=== PATIENT | male | born 1955 | race Caucasian/White ===

== ENCOUNTER → 2022-03-30 | Outpatient (CLI) | payer MEDICARE ==
--- NOTE | 2022-03-30 08:52 | MR ---
EXAMINATION TYPE: MR brain wo con DATE OF EXAM: 03/30/2022 COMPARISON: NONE HISTORY: Migraine. TECHNIQUE: Multiplanar, multisequence imaging of the brain and brainstem is performed without IV cont rast. FINDINGS: Exam is suboptimal and there is susceptibility artifact over the peripheral left parietal lobe superiorly. Diffusion weighted images demonstrate no evidence of a recent infarct or other diffusion abnormality. There is mild to moderate ventricular and sulcal prominence. Few scattered tiny areas of T2 hyperinte nsity are seen throughout the white matter bilaterally. Less than 5 scattered lesions are present. No obvious suspicious intraparenchymal blood product on the T2 star weighted images. Midline structures demonstrate normal morphology. The craniocervical junction appears within normal limits. Normal vascular flow voids are present. The visualized sinuses are clear and the globes are i ntact. IMPRESSION: Suboptimal study. [id number] diffuse cerebral atrophy and mild to minimal nonspecif ic white matter changes may be on basis of altered vascular mechanics related to product of migraine headaches and/or product of chronic small vessel ischemic change.
== END | disposition home or self-care (01) ==
LOC: RADMRIMAIN 06:38
PROVIDERS: ATTEND Psychiatry & Neurology Neurology
DX: M47.812 Spondylosis without myelopathy or radiculopathy, cervical region (principal); M47.816 Spondylosis without myelopathy or radiculopathy, lumbar region; G43.909 Migraine, unspecified, not intractable, without status migrainosus
CPT/HCPCS: 70551

== ENCOUNTER 2022-06-16 14:37 | Emergency (ER) | payer MEDICARE ==
[2022-06-16 14:48] LABS: Glucose,Whole Blood 108 mg/dL (70-110)
[2022-06-16 16:37] LABS: Basophils % (A) 0 %; Eosinophils # (A) 0.1 k/uL (0-0.7); Eosinophils % (A) 2 %; HCT 39.5 % (39.0-53.0); HGB 13.2 gm/dL (13.0-17.5); Lymphocytes # (A) 1.4 k/uL (1.0-4.8); Lymphocytes % (A) 19 %; MCH 31.3 pg (25.0-35.0); MCHC 33.5 g/dL (31.0-37.0); MCV 93.7 fL (80.0-100.0); Mean Platelet Volume 8.1; Monocytes # (A) 0.5 k/uL (0-1.0); Monocytes % (A) 7 %; Neutrophils # (A) 5.2 k/uL (1.3-7.7); Neutrophils % (A) 70 %; Platelet Count 136 k/uL (150-450); RBC 4.22 m/uL (4.30-5.90); RDW 13.1 % (11.5-15.5); WBC 7.4 k/uL (3.8-10.6)
[2022-06-16 16:46] LABS: Albumin 4.2 g/dL (3.5-5.0); Calcium 8.7 mg/dL (8.4-10.2); Magnesium 2.1 mg/dL (1.6-2.3); Potassium 5.2 mmol/L (3.5-5.1); Total Bilirubin 0.5 mg/dL (0.2-1.3)
[2022-06-16 16:49] VITALS: RESP 18
--- NOTE | 2022-06-16 16:59 | XR ---
EXAMINATION TYPE: XR chest 2V DATE OF EXAM: 06/16/2022 4:53 PM COMPARISON: None TECHNIQUE: XR chest 2V Frontal and lateral views of the chest. CLINICAL INDICATION:Male, 66 years old with history of Presyncope; FINDINGS: Lungs/Pleura: There is no evidence of pleural effusion, focal consolidation, or pneumothorax. Pulmonary vascularity: Unremarkable. Heart/mediastinum: Cardiomediastinal silhouette is unremarkable. Musculoskeletal: No acute osseous pathology. IMPRESSION: 1. Vague opacity projects over the right pulmonary hilum suggested, consider further evaluation with CT chest. 2. No focal consolidation, pneumothorax or pleural effusion.
[2022-06-16] MEDS ORDERED: RX INFO: IV CONTRAST WAS GIVEN 1 EACH MISC MISCELLANE PRN (17:34)
--- NOTE | 2022-06-16 17:53 | ED ---
General Adult HPI - General Chief complaint: Syncope Stated complaint: Syncope Time Seen by Provider: 06/16/22 15:09 Source: patient, EMS Mode of arrival: EMS Limitations: no limitations - History of Present Illness Initial comments: This is a 66-year-old male who presented to the emergency department via EMS from a nursing facility. Was reported that the patient had a episode of possible presyncope but stated "things not fuzzy when I was talking to a nurse" and this was stated to the patient's half-way nurse. Once the patient arrived in the emergency department here and on my evaluation, the patient stated that he denied of any pain or complaints and stated that his hand got "fuzzy" for a few seconds. The patient did have carpal tunnel surgery performed on the right hand yesterday but stated that he denied of any acute pain. The patient denied any shortness of breath, chest pain, lightheadedness or weakness on my evaluation. The patient was resting in bed comfortably after I had to wake him up from sleep. - Related Data Home Medications Medication Instructions Recorded Confirmed Albuterol Sulfate [Ventolin HFA] 2 puff INHALATION RT-Q6H 06/16/22 06/16/22 Aspirin EC [Ecotrin Low Dose] 81 mg PO DAILY@0906/16/22 06/16/22 Atorvastatin Calcium [Lipitor] 40 mg PO HS@2100 06/16/22 06/16/22 Cholecalciferol [Vitamin D3 (25 25 mcg PO DAILY@89906/16/22 06/16/22 Mcg = 1000 Iu)] Diclofenac Sodium Gel [Voltaren 2 gm TOPICAL BID PRN 06/16/22 06/16/22 Gel] Famotidine [Pepcid] 20 mg PO DAILY@59906/16/22 06/16/22 Furosemide [Lasix] 40 mg PO DAILY@59906/16/22 06/16/22 Gabapentin 600 mg PO TID@0600,1400,2200 06/16/22 06/16/22 HYDROcodone/APAP 5-325MG [[place] 1 tab PO Q4HR PRN 06/16/22 06/16/22 5-325] Insulin Aspart [NovoLOG Flexpen] 10 units SQ TID@0800,1200,1700 06/16/22 06/16/22 Insulin Glargine,Hum.rec.anlog 25 unit SQ HS@2100 02/02/23 02/02/23 [Basaglar Sofiepen U-100] Lactulose 10 gm PO DAILY PRN 06/16/22 06/16/22 Metoprolol Succinate (ER) [Toprol 12.5 mg PO DAILY@89906/16/22 06/16/22 Xl] Multivitamins, Thera [Multivitamin 1 tab PO DAILY@89906/16/22 06/16/22 (formulary)] Rhinocort Aqua Suspension 32mcg/Act 1 spray EA NOSTRIL HS@209906/16/22 06/16/22 Semaglutide [Ozempic] 0.5 mg SQ TU@89906/16/22 06/16/22 Tamsulosin HCl [Flomax] 0.4 mg PO HS@209906/16/22 06/16/22 glipiZIDE [Glucotrol] 5 mg PO DAILY@89906/16/22 06/16/22 lisinopriL [Zestril] 40 mg PO DAILY@89906/16/22 06/16/22 Allergies Allergy/AdvReac Type Severity Reaction Status Date / Time No Known Allergies Allergy Verified 06/16/22 17:41 Review of Systems ROS Statement: Those systems with pertinent positive or pertinent negative responses have been documented in the HPI. ROS Other: All systems not noted in ROS Statement are negative. Past Medical History Past Medical History: Diabetes Mellitus, Hypertension Additional Past Medical History / Comment(s): stent placement History of Any Multi-Drug Resistant Organisms: None Reported Additional Past Surgical History / Comment(s): carpel tunnel surgery 06/15/22, lap band around 2017 Past Psychological History: No Psychological Hx Reported Smoking Status: Former smoker Past Alcohol Use History: None Reported Past Drug Use History: None Reported General Exam Limitations: no limitations General appearance: alert, in no apparent distress, obese Head exam: Present: atraumatic, normocephalic, normal inspection Eye exam: Present: normal appearance, PERRL Pupils: Present: normal accommodation ENT exam: Present: normal exam, normal oropharynx, mucous membranes moist Neck exam: Present: normal inspection, full ROM Respiratory exam: Present: normal lung sounds bilaterally Cardiovascular Exam: Present: regular rate, normal rhythm, normal heart sounds GI/Abdominal exam: Present: soft, normal bowel sounds Extremities exam: Present: normal inspection, full ROM, other (Right hand was ba ndaged from previous carpal tunnel surgery yesterday. There was no pain on palpation.) Back exam: Present: normal inspection, full ROM Neurological exam: Present: alert, oriented X3, CN II-XII intact Psychiatric exam: Present: normal affect, normal mood Skin exam: Present: warm, dry Course Vital Signs 06/16/22 06/16/22 06/16/22 14:40 16:46 18:30 Temperature 97.7 F Pulse Rate 68 65 67 Respiratory 20 18 18 Rate Blood Pressure 111/82 114/70 114/59 O2 Sat by Pulse 99 97 97 Oximetry EKG Findings - EKG Comments: EKG Findings:: An EKG was obtained and was interpreted by myself showing a rate of 63, CA interval of 164, QRS duration of 89 and QTC of 388. This EKG showed a normal sinus rhythm with no ST segment elevation or depression noted. Medical Decision Making - Medical Decision Making Was pt. sent in by a medical professional or institution ([facility], IMPLEMENTATION DIRECTOR, urgent care, hospital, or half-way...) When possible be specific @ -Yes, nursing facility Did you speak to anyone other than the patient for history (EMS, parent, family, police, friend...)? What history was obtained from this source @ -No Did you review nursing and triage notes (agree or disagree)? Why? @ -I reviewed and agree with nursing and triage notes Were old charts reviewed (outside hosp., previous admission, EMS record, old EKG, old radiological studies, urgent care reports/EKG's, half-way records)? Report findings @ -No old charts were reviewed Differential Diagnosis (chest pain, altered mental status, abdominal pain women, abdominal pain men, vaginal bleeding, weakness, fever, dyspnea, syncope, headache, dizziness, GI bleed, back pain, seizure, CVA, palpatations, mental health)? @ -Syncope, dehydration, vasovagal syncope EKG interpreted by me (3pts min.). @ -As above X-rays interpreted by me (1pt min.). @ -Chest x-ray was obtained and was interpreted by myself showing a vague opacity that projects over the right pulmonary hilum and the radiologist did consider recommending a CT chest for further evaluation. CT interpreted by me (1pt min.). @ -Chest CT was obtained and was interpreted by myself showing a right perihilar infiltrate without did not require any direct intervention at this time. As recommended by the radiologist to have a 6 week follow-up chest x-ray to prove resolution. U/S interpreted by me (1pt. min.). @ -None done What testing was considered but not performed or refused? (CT, X-rays, U/S, labs)? Why? @ -None What meds were considered but not given or refused? Why? @ -None Did you discuss the management of the patient with other professionals (grazyna todd i.e. , PA, IMPLEMENTATION DIRECTOR, lab, RT, psych nurse, social sciences chair, digital marketing assistant, teacher, tax compliance officer, continuous pillowcase cutter)? Give summary @ -No Was smoking cessation discussed for >3mins.? @ -No Was critical care preformed (if so, how long)? @ -No Were there social determinants of health that impacted care today? How? (Homelessness, low income, unemployed, alcoholism, drug addiction, transportation, low edu. Level, literacy, decrease access to med. care, half-way, rehab)? @ -No Was there de-escalation of care discussed even if they declined (Discuss DNR or withdrawal of care, Hospice)? DNR status @ -No What co-morbidities impacted this encounter? (DM, HTN, Smoking, COPD, CAD, Cancer, CVA, ARF, Chemo, Hep., AIDS, mental health diagnosis, sleep apnea, morbid obesity)? @ -Hypertension, diabetes, CHF Was patient admitted / discharged? Hospital course, mention meds given and route, prescriptions, significant lab abnormalities, going to OR and other pertinent info. @ -The patient was seen and evaluated in emergency department. Physical exam, the patient was resting in bed without any acute distress. Vital signs remained stable throughout his hospital stay. On my evaluation, the patient denied of any acute complaints and only stated that he had some "fuzziness" momentarily in his right hand where his surgery was. The patient stated that he is not having any current symptoms and was resting in bed comfortably. The patient denied ever falling and denied ever almost falling. Workup for syncopal was obtained and was all within normal limits. The patient continued to remain stable and was stable to be discharged back to his nursing facility. The patient was told this plan and was agreeable. The patient was discharged back to his nursing facility in stable condition. Undiagnosed new problem with uncertain prognosis? @ -No Drug Therapy requiring intensive monitoring for toxicity (Heparin, Nitro, Insulin, Cardizem)? @ -No Were any procedures done? @ -No Diagnosis/symptom? @ -Presyncope, NOS Acute, or Chronic, or Acute on Chronic? @ -Acute Uncomplicated (without systemic symptoms) or Complicated (systemic symptoms)? @ -Uncomplicated Side effects of treatment? @ -No Exacerbation, Progression, or Severe Exacerbation? @ -No Poses a threat to life or bodily function? How? (Chest pain, [place], NH, pneumonia, PE, COPD, DKA, ARF, appy, cholecystitis, CVA, Diverticulitis, Homicidal, Suicidal, threat to staff... and all critical care pts) @ -No - Lab Data Result diagrams: 06/16/22 16:09 06/16/22 16:09 Lab Results 06/16/22 06/16/22 06/16/22 Range/Units 14:47 16:09 16:09 WBC 7.4 (3.8-10.6) k/uL RBC 4.22 L (4.30-5.90) m/uL Hgb 13.2 (13.0-17.5) gm/dL Hct 39.5 (39.0-53.0) % MCV 93.7 (80.0-100.0) fL MCH 31.3 (25.0-35.0) pg MCHC 33.5 (31.0-37.0) g/dL RDW 13.1 (11.5-15.5) % Plt Count 136 L (150-450) k/uL MPV 8.1 Neutrophils % 70 % Lymphocytes % 19 % Monocytes % 7 % Eosinophils % 2 % Basophils % 0 % Neutrophils # 5.2 (1.3-7.7) k/uL Lymphocytes # 1.4 (1.0-4.8) k/uL Monocytes # 0.5 (0-1.0) k/uL Eosinophils # 0.1 (0-0.7) k/uL Basophils # 0.0 (0-0.2) k/uL Sodium 140 (137-145) mmol/L Potassium 5.2 H (3.5-5.1) mmol/L Chloride 106 (98-107) mmol/L Carbon Dioxide 24 (22-30) mmol/L Anion Gap 10 mmol/L BUN 27 H (9-20) mg/dL Creatinine 1.27 H (0.66-1.25) mg/dL Est GFR (CKD-EPI)AfAm 67 (>60 ml/min/1.73 sqM) Est GFR (CKD-EPI)NonAf 58 (>60 ml/min/1.73 sqM) Glucose 98 (74-99) mg/dL POC Glucose (mg/dL) 108 (70-110) mg/dL POC Glu Auto Damage Appraiser ID [place], [place] Calcium 8.7 (8.4-10.2) mg/dL Magnesium 2.1 (1.6-2.3) mg/dL Total Bilirubin 0.5 (0.2-1.3) mg/dL AST 24 (17-59) U/L ALT 20 (4-49) U/L Alkaline Phosphatase 62 (38-126) U/L Troponin I (0.000-0.034) ng/mL Total Protein 7.0 (6.3-8.2) g/dL Albumin 4.2 (3.5-5.0) g/dL 06/16/22 Range/Units 16:09 WBC (3.8-10.6) k/uL RBC (4.30-5.90) m/uL Hgb (13.0-17.5) gm/dL Hct (39.0-53.0) % MCV (80.0-100.0) fL MCH (25.0-35.0) pg MCHC (31.0-37.0) g/dL RDW (11.5-15.5) % Plt Count (150-450) k/uL MPV Neutrophils % % Lymphocytes % % Monocytes % % Eosinophils % % Basophils % % Neutrophils # (1.3-7.7) k/uL Lymphocytes # (1.0-4.8) k/uL Monocytes # (0-1.0) k/uL Eosinophils # (0-0.7) k/uL Basophils # (0-0.2) k/uL Sodium (137-145) mmol/L Potassium (3.5-5.1) mmol/L Chloride (98-107) mmol/L Carbon Dioxide (22-30) mmol/L Anion Gap mmol/L BUN (9-20) mg/dL Creatinine (0.66-1.25) mg/dL Est GFR (CKD-EPI)AfAm (>60 ml/min/1.73 sqM) Est GFR (CKD-EPI)NonAf (>60 ml/min/1.73 sqM) Glucose (74-99) mg/dL POC Glucose (mg/dL) (70-110) mg/dL POC Glu Auto Damage Appraiser ID Calcium (8.4-10.2) mg/dL Magnesium (1.6-2.3) mg/dL Total Bilirubin (0.2-1.3) mg/dL AST (17-59) U/L ALT (4-49) U/L Alkaline Phosphatase (38-126) U/L Troponin I <0.012 (0.000-0.034) ng/mL Total Protein (6.3-8.2) g/dL Albumin (3.5-5.0) g/dL Disposition Clinical Impression: Pre-syncope Disposition: HOME SELF-CARE Condition: Stable Is patient prescribed a controlled substance at d/c from ED?: No Referrals: Jeffrey Frank MD [Primary Care Provider] - 1-2 days Time of Disposition: 19:30
--- NOTE | 2022-06-16 19:38 | CT ---
EXAMINATION TYPE: CT chest w con DATE OF EXAM: 06/16/2022 COMPARISON: None HISTORY: syncope CT DLP: 1082.6 mGycm. Automated Exposure Control for Dose Reduction was Utilized. TECHNIQUE: CT scan of the thorax is performed following with IV Contrast, patient injected with 80ml mL of Isovue 300. FINDINGS: AIRWAYS/LUNGS/PLEURAL SPACES: There is patient motion artifact, but there is also right perihilar RML and RLL ill-defined opacity, consistent with developing or resolving pneumonia. This likely accounts for the radiographic abnormality. Otherwise, the lungs are grossly clear, there is no concerning par enchymal mass or nodule. There is no pleural effusion or pneumothorax seen. The tracheobronchial tree is patent. MEDIASTINUM: There are no greater than 1 cm hilar or mediastinal lymph nodes. No supraclavicular or a xillary enlarged lymph nodes. There are prominent coronary calcifications and there are aortic and mitral valve plane calcification s. No pericardial effusion. Thyroid and esophagus are unremarkable. OTHER: No additional significant abnormality is seen. IMPRESSION: Right perihilar infiltrate, would recommend six-week follow-up PA and lateral chest radio graphs to prove resolution.
[2022-06-16 19:42] VITALS: BP 118/56; PULSE 69; TEMP 97.6
== END 2022-06-16 20:19 | disposition home or self-care (01) ==
LOC: EC 14:37
DX: R55 Syncope and collapse (principal); I10 Essential (primary) hypertension; E11.9 Type 2 diabetes mellitus without complications; Z79.82 Long term (current) use of aspirin; Z79.4 Long term (current) use of insulin; Z79.899 Other long term (current) drug therapy; Z87.891 Personal history of nicotine dependence
CPT/HCPCS: 36415; 93005; 80053; 83735; 84484; 85025; 71046; 71260; 99285; Q9967

== ENCOUNTER 2022-07-17 21:45 | Observation (INO) | payer MEDICARE, OTHER ==
[2022-07-17 23:10] LABS: Basophils % (A) 0 %; Eosinophils # (A) 0.2 k/uL (0-0.7); Eosinophils % (A) 2 %; HGB 11.5 gm/dL (13.0-17.5); Lymphocytes # (A) 0.4 k/uL (1.0-4.8); Lymphocytes % (A) 4 %; MCH 31.7 pg (25.0-35.0); MCHC 33.9 g/dL (31.0-37.0); MCV 93.4 fL (80.0-100.0); Monocytes # (A) 0.5 k/uL (0-1.0); Monocytes % (A) 5 %; Neutrophils # (A) 7.9 k/uL (1.3-7.7); Neutrophils % (A) 87 %; Platelet Count 119 k/uL (150-450); RBC 3.64 m/uL (4.30-5.90); RDW 13.8 % (11.5-15.5)
--- NOTE | 2022-07-17 23:21 | ED ---
General Adult HPI - General Chief complaint: Shortness of Breath Stated complaint: Fever Time Seen by Provider: 07/17/22 22:21 Source: patient, EMS Mode of arrival: EMS Limitations: no limitations - History of Present Illness Initial comments: This patient is a 66-year-old man transferred here from the custodial to have evaluation of cough and bilateral rib aching. The patient started with cough and second day now. He states that there pains along the costal margin bilaterally when he coughs. When he is at rest there is really no pain. There is mild dyspnea when he has coughing spell. Onset/Timin -: days(s) Quality: aching Consistency: intermittent Improves with: none Worsens with: other (Cough) Associated Symptoms: cough Treatments Prior to Arrival: none - Related Data Home Medications Medication Instructions Recorded Confirmed Albuterol Sulfate [Ventolin HFA] 2 puff INHALATION RT-Q6H 06/16/22 07/18/22 Aspirin EC [Ecotrin Low Dose] 81 mg PO DAILY@0900 06/16/22 07/18/22 Atorvastatin Calcium [Lipitor] 40 mg PO HS@2100 06/16/22 07/18/22 Cholecalciferol [Vitamin D3 (25 25 mcg PO DAILY@0906/16/22 07/18/22 Mcg = 1000 Iu)] Diclofenac Sodium Gel [Voltaren 2 gm TOPICAL BID PRN 06/16/22 07/18/22 Gel] Famotidine [Pepcid] 20 mg PO DAILY@0600 06/16/22 07/18/22 Furosemide [Lasix] 40 mg PO DAILY@0600 06/16/22 07/18/22 Gabapentin 600 mg PO TID@0600,1400,2200 06/16/22 07/18/22 Insulin Aspart [NovoLOG Flexpen] 10 units SQ TID@0800,1200,1700 06/16/22 07/18/22 Insulin Glargine,Hum.rec.anlog 25 unit SQ HS@209906/16/22 07/18/22 [Basaglar Kwikpen U-100] Lactulose 10 gm PO DAILY PRN 06/16/22 07/18/22 Metoprolol Succinate (ER) [Toprol 12.5 mg PO DAILY@0900 06/16/22 07/18/22 XL] Multivitamins, Thera [Multivitamin 1 tab PO DAILY@0900 06/16/22 07/18/22 (formulary)] Rhinocort Aqua Suspension 32mcg/Act 1 spray EA NOSTRIL HS@209906/16/22 07/18/22 Semaglutide [Ozempic] 0.5 mg SQ TU@0900 06/16/22 07/18/22 Tamsulosin HCl [Flomax] 0.4 mg PO HS@209906/16/22 07/18/22 glipiZIDE [Glucotrol] 5 mg PO DAILY@0900 06/16/22 07/18/22 Tracie-Tussin 10 ml PO Q4H PRN 07/18/22 07/18/22 methylPREDNISolone Dose Pack See Taper PO DIRECTED 07/18/22 07/18/22 [Medrol Dose Pack] Previous Rx's Medication Instructions Recorded Acetaminophen Tab [Tylenol] 650 mg PO Q6HR PRN tab 07/19/22 Benzocaine/Menthol Lozeng [Cepacol 1 each MUCOUS MEM Q4HR PRN lozenge 07/19/22 lozenge] HYDROcodone/APAP 5-325MG [Cameron 1 tab PO Q4HR PRN #6 tab 07/19/22 5-325] INSULIN ASPART (NovoLOG) [NovoLOG 0 unit SQ ACHS each 07/19/22 (formulary)] amLODIPine [Norvasc] 10 mg PO DAILY tab 07/19/22 cefUROXime axetiL [Ceftin] 500 mg PO BID 5 Days #10 tab 07/19/22 guaiFENesin SYRUP 100MG/5ML 200 mg PO TID PRN ml 07/19/22 [Robitussin] Allergies Allergy/AdvReac Type Severity Reaction Status Date / Time No Known Allergies Allergy Verified 07/18/22 07:25 Review of Systems ROS Statement: Those systems with pertinent positive or pertinent negative responses have been documented in the HPI. ROS Other: All systems not noted in ROS Statement are negative. Constitutional: Reports: fever Respiratory: Reports: as per HPI, cough, dyspnea. Denies: hemoptysis Cardiovascular: Reports: as per HPI, chest pain. Denies: palpitations, orthopnea, edema, syncope Gastrointestinal: Denies: abdominal pain, vomiting, diarrhea Genitourinary: Denies: dysuria, hematuria Musculoskeletal: Denies: back pain Skin: Denies: rash Neurological: Denies: headache, weakness Past Medical History Past Medical History: Diabetes Mellitus, Hypertension Additional Past Medical History / Comment(s): stent placement History of Any Multi-Drug Resistant Organisms: None Reported Additional Past Surgical History / Comment(s): carpel tunnel surgery 06/15/22, lap band around 2018 Past Psychological History: No Psychological Hx Reported Smoking Status: Former smoker Past Alcohol Use History: None Reported Past Drug Use History: None Reported - Past Family History Father Family Medical History: Myocardial Infarction (PR) General Exam Limitations: no limitations General appearance: alert, in no apparent distress Head exam: Present: atraumatic, normocephalic Eye exam: Present: normal appearance. Absent: scleral icterus, conjunctival injection Neck exam: Present: normal inspection Respiratory exam: Present: wheezes. Absent: respiratory distress, rales, rhonchi, stridor, accessory muscle use Cardiovascular Exam: Present: regular rate, normal rhythm, normal heart sounds. Absent: systolic murmur, diastolic murmur, rubs, gallop GI/Abdominal exam: Present: soft. Absent: distended, tenderness, guarding, rebound, rigid, mass Extremities exam: Present: normal inspection, normal capillary refill. Absent: pedal edema, calf tenderness Back exam: Present: normal inspection. Absent: CVA tenderness (R), CVA tenderness (L) Neurological exam: Present: alert Skin exam: Present: warm, dry, intact, normal color. Absent: rash Course Vital Signs 07/17/22 07/17/22 07/18/22 21:50 21:59 00:55 Temperature 101.1 F H 100.7 F H Pulse Rate 92 72 Respiratory 18 18 18 Rate Blood Pressure 127/56 86/44 O2 Sat by Pulse 96 94 L Oximetry 07/18/22 07/18/22 07/18/22 01:23 02:00 03:00 Temperature Pulse Rate 75 63 67 Respiratory 18 16 16 Rate Blood Pressure 98/47 116/57 94/47 O2 Sat by Pulse 97 98 97 Oximetry 07/18/22 07/18/22 07/18/22 04:00 05:00 06:00 Temperature Pulse Rate 63 64 66 Respiratory 16 16 16 Rate Blood Pressure 95/51 117/59 121/67 O2 Sat by Pulse 97 96 98 Oximetry 07/18/22 07:27 Temperature 97.3 F L Pulse Rate 88 Respiratory 22 Rate Blood Pressure 105/56 O2 Sat by Pulse 96 Oximetry EKG Findings - EKG Results: EKG: interpreted by ERMD, sinus rhythm (Rate 86 bpm), normal axis, normal ST/T - [place]ocks, [place], Hypertrophy, ST Abn: QRS axis and voltage: low voltage (<0.5 MV total QRS and <1.0 MV in each precordial lead) Medical Decision Making - Medical Decision Making Patient had chest x-ray which I interpreted as not showing pneumothorax, or acute infiltrate. Was pt. sent in by a medical professional or institution (, PA, [facility], urgent care, hospital, or custodial...) When possible be specific @ -[No] Did you speak to anyone other than the patient for history (EMS, parent, family, police, friend...)? What history was obtained from this source @ -[No] Did you review nursing and triage notes (agree or disagree)? Why? @ -[I reviewed and agree with nursing and triage notes] Were old charts reviewed (outside hosp., previous admission, EMS record, old EKG, old radiological studies, urgent care reports/EKG's, custodial records)? Report findings @ -[No old charts were reviewed] Differential Diagnosis (chest pain, altered mental status, abdominal pain women, abdominal pain men, vaginal bleeding, weakness, fever, dyspnea, syncope, headache, dizziness, GI bleed, back pain, seizure, CVA, palpatations, mental health, musculoskeletal)? @ -[Differential Fever: Pneumonia, viral URI, endocarditis, myocarditis, pericarditis, otitis, sinusitis, peritonsillar Abscess, retropharyngeal Abscess, epiglottitis, peritonitis, appendicitis, Sarah cystitis, diverticulitis, hepatitis, colitis, UTI, PID, TOA, pyelonephritis, prostatitis, epididymitis, meningitis, encephalitis, pulmonary embolism, CVA, thyroid storm, pancreatitis, adrenal crisis, cavernous sinus thrombosis, this is not meant to be an all-inclusive list. EKG interpreted by me (3pts min.). @ -[As above] X-rays interpreted by me (1pt min.). @ -[As above CT interpreted by me (1pt min.). @ -[None done] U/S interpreted by me (1pt. min.). @ -[None done] What testing was considered but not performed or refused? (CT, X-rays, U/S, labs)? Why? @ -[None] What meds were considered but not given or refused? Why? @ -[None] Did you discuss the management of the patient with other professionals (professionals i.e. Dr., PA, [facility], lab, RT, psych nurse, social worker psychiatric, despatch clerk, teacher, property disposal officer, bottle caser)? Give summary @ -[Admitting physician Was smoking cessation discussed for >3mins.? @ -[No] Was critical care preformed (if so, how long)? @ -[No] Were there social determinants of health that impacted care today? How? (Homelessness, low income, unemployed, alcoholism, drug addiction, transportation, low edu. Level, literacy, decrease access to med. care, prison, rehab)? @ -[No] Was there de-escalation of care discussed even if they declined (Discuss DNR or withdrawal of care, Hospice)? DNR status @ -[No] What co-morbidities impacted this encounter? (DM, HTN, Smoking, COPD, CAD, Cancer, CVA, ARF, Chemo, Hep., AIDS, mental health diagnosis, sleep apnea, morbid obesity)? @ -[None] Was patient admitted / discharged? Hospital course, mention meds given and route, prescriptions, significant lab abnormalities, going to OR and other pertinent info. @ -[Admitted Undiagnosed new problem with uncertain prognosis? @ -[No] Drug Therapy requiring intensive monitoring for toxicity (Heparin, Nitro, Insulin, Cardizem)? @ -[No] Were any procedures done? @ -[No] Diagnosis/symptom? @ -[1. Acute urinary tract infection 2. Fever 3. Dyspnea, suspect mild COPD exacerbation Acute, or Chronic, or Acute on Chronic? @ -[Acute Uncomplicated (without systemic symptoms) or Complicated (systemic symptoms)? @ -[1 complicated Side effects of treatment? @ -[No] Exacerbation, Progression, or Severe Exacerbation? @ -[No] Poses a threat to life or bodily function? How? (Chest pain, [place], PR, pneumonia, PE, COPD, DKA, ARF, appy, cholecystitis, CVA, Diverticulitis, Homicidal, Suicidal, threat to staff... and all critical care pts) @ -[Untreated infection may become life-threatening. - Lab Data Result diagrams: 07/17/22 22:57 07/18/22 10:38 Lab Results 07/17/22 07/17/22 07/17/22 Range/Units 22:53 22:57 22:57 WBC 9.0 (3.8-10.6) k/uL RBC 3.64 L (4.30-5.90) m/uL Hgb 11.5 L (13.0-17.5) gm/dL Hct 34.0 L (39.0-53.0) % MCV 93.4 (80.0-100.0) fL MCH 31.7 (25.0-35.0) pg MCHC 33.9 (31.0-37.0) g/dL RDW 13.8 (11.5-15.5) % Plt Count 119 L (150-450) k/uL MPV 9.0 Neutrophils % 87 % Lymphocytes % 4 % Monocytes % 5 % Eosinophils % 2 % Basophils % 0 % Neutrophils # 7.9 H (1.3-7.7) k/uL Lymphocytes # 0.4 L (1.0-4.8) k/uL Monocytes # 0.5 (0-1.0) k/uL Eosinophils # 0.2 (0-0.7) k/uL Basophils # 0.0 (0-0.2) k/uL PT 10.6 (9.0-12.0) sec INR 1.0 (<1.2) APTT 27.0 (22.0-30.0) sec Sodium (137-145) mmol/L Potassium (3.5-5.1) mmol/L Chloride (98-107) mmol/L Carbon Dioxide (22-30) mmol/L Anion Gap mmol/L BUN (9-20) mg/dL Creatinine (0.66-1.25) mg/dL Est GFR (CKD-EPI)AfAm (>60 ml/min/1.73 sqM) Est GFR (CKD-EPI)NonAf (>60 ml/min/1.73 sqM) Glucose (74-99) mg/dL Plasma Lactic Acid Marcus (0.7-2.0) mmol/L Calcium (8.4-10.2) mg/dL Total Bilirubin (0.2-1.3) mg/dL AST (17-59) U/L ALT (4-49) U/L Alkaline Phosphatase (38-126) U/L Troponin I (0.000-0.034) ng/mL Total Protein (6.3-8.2) g/dL Albumin (3.5-5.0) g/dL Urine Color Urine Appearance (Clear) Urine pH (5.0-8.0) Ur Specific [place] (1.001-1.035) Urine Protein (Negative) Urine Glucose (UA) (Negative) Urine Ketones (Negative) Urine Blood (Negative) Urine Nitrite (Negative) Urine Bilirubin (Negative) Urine Urobilinogen (<2.0) mg/dL Ur Leukocyte Esterase (Negative) Urine RBC (0-5) /hpf Urine WBC (0-5) /hpf Urine WBC Clumps (None) /hpf Ur Squamous Epith Cells (0-4) /hpf Urine Bacteria (None) /hpf Urine Mucus (None) /hpf Influenza Type A (PCR) Not Detected (Not Detectd) Influenza Type B (PCR) Not Detected (Not Detectd) RSV (PCR) Not Detected (Not Detectd) SARS-CoV-2 (PCR) Not Detected (Not Detectd) 07/17/22 07/17/22 07/17/22 Range/Units 22:57 22:57 23:33 WBC (3.8-10.6) k/uL RBC (4.30-5.90) m/uL Hgb (13.0-17.5) gm/dL Hct (39.0-53.0) % MCV (80.0-100.0) fL MCH (25.0-35.0) pg MCHC (31.0-37.0) g/dL RDW (11.5-15.5) % Plt Count (150-450) k/uL MPV Neutrophils % % Lymphocytes % % Monocytes % % Eosinophils % % Basophils % % Neutrophils # (1.3-7.7) k/uL Lymphocytes # (1.0-4.8) k/uL Monocytes # (0-1.0) k/uL Eosinophils # (0-0.7) k/uL Basophils # (0-0.2) k/uL PT (9.0-12.0) sec INR (<1.2) APTT (22.0-30.0) sec Sodium 135 L (137-145) mmol/L Potassium 5.2 H (3.5-5.1) mmol/L Chloride 104 (98-107) mmol/L Carbon Dioxide 23 (22-30) mmol/L Anion Gap 8 mmol/L BUN 33 H (9-20) mg/dL Creatinine 1.46 H (0.66-1.25) mg/dL Est GFR (CKD-EPI)AfAm 57 (>60 ml/min/1.73 sqM) Est GFR (CKD-EPI)NonAf 49 (>60 ml/min/1.73 sqM) Glucose 151 H (74-99) mg/dL Plasma Lactic Acid Marcus 1.2 (0.7-2.0) mmol/L Calcium 8.2 L (8.4-10.2) mg/dL Total Bilirubin 0.5 (0.2-1.3) mg/dL AST 26 (17-59) U/L ALT 21 (4-49) U/L Alkaline Phosphatase 55 (38-126) U/L Troponin I 0.012 (0.000-0.034) ng/mL Total Protein 6.3 (6.3-8.2) g/dL Albumin 3.6 (3.5-5.0) g/dL Urine Color Urine Appearance (Clear) Urine pH (5.0-8.0) Ur Specific [place] (1.001-1.035) Urine Protein (Negative) Urine Glucose (UA) (Negative) Urine Ketones (Negative) Urine Blood (Negative) Urine Nitrite (Negative) Urine Bilirubin (Negative) Urine Urobilinogen (<2.0) mg/dL Ur Leukocyte Esterase (Negative) Urine RBC (0-5) /hpf Urine WBC (0-5) /hpf Urine WBC Clumps (None) /hpf Ur Squamous Epith Cells (0-4) /hpf Urine Bacteria (None) /hpf Urine Mucus (None) /hpf Influenza Type A (PCR) (Not Detectd) Influenza Type B (PCR) (Not Detectd) RSV (PCR) (Not Detectd) SARS-CoV-2 (PCR) (Not Detectd) 07/18/22 Range/Units 04:00 WBC (3.8-10.6) k/uL RBC (4.30-5.90) m/uL Hgb (13.0-17.5) gm/dL Hct (39.0-53.0) % MCV (80.0-100.0) fL MCH (25.0-35.0) pg MCHC (31.0-37.0) g/dL RDW (11.5-15.5) % Plt Count (150-450) k/uL MPV Neutrophils % % Lymphocytes % % Monocytes % % Eosinophils % % Basophils % % Neutrophils # (1.3-7.7) k/uL Lymphocytes # (1.0-4.8) k/uL Monocytes # (0-1.0) k/uL Eosinophils # (0-0.7) k/uL Basophils # (0-0.2) k/uL PT (9.0-12.0) sec INR (<1.2) APTT (22.0-30.0) sec Sodium (137-145) mmol/L Potassium (3.5-5.1) mmol/L Chloride (98-107) mmol/L Carbon Dioxide (22-30) mmol/L Anion Gap mmol/L BUN (9-20) mg/dL Creatinine (0.66-1.25) mg/dL Est GFR (CKD-EPI)AfAm (>60 ml/min/1.73 sqM) Est GFR (CKD-EPI)NonAf (>60 ml/min/1.73 sqM) Glucose (74-99) mg/dL Plasma Lactic Acid Marcus (0.7-2.0) mmol/L Calcium (8.4-10.2) mg/dL Total Bilirubin (0.2-1.3) mg/dL AST (17-59) U/L ALT (4-49) U/L Alkaline Phosphatase (38-126) U/L Troponin I (0.000-0.034) ng/mL Total Protein (6.3-8.2) g/dL Albumin (3.5-5.0) g/dL Urine Color Yellow Urine Appearance Turbid (Clear) Urine pH 6.0 (5.0-8.0) Ur Specific [place] 1.016 (1.001-1.035) Urine Protein 2+ H (Negative) Urine Glucose (UA) Negative (Negative) Urine Ketones Negative (Negative) Urine Blood Small H (Negative) Urine Nitrite Negative (Negative) Urine Bilirubin Negative (Negative) Urine Urobilinogen <2.0 (<2.0) mg/dL Ur Leukocyte Esterase Large H (Negative) Urine RBC 3 (0-5) /hpf Urine WBC >182 H (0-5) /hpf Urine WBC Clumps Many H (None) /hpf Ur Squamous Epith Cells 1 (0-4) /hpf Urine Bacteria Occasional H (None) /hpf Urine Mucus Occasional H (None) /hpf Influenza Type A (PCR) (Not Detectd) Influenza Type B (PCR) (Not Detectd) RSV (PCR) (Not Detectd) SARS-CoV-2 (PCR) (Not Detectd) Disposition Clinical Impression: UTI (urinary tract infection), Dyspnea Disposition: ADMITTED IP TO THIS HOSP Condition: Fair Is patient prescribed a controlled substance at d/c from ED?: No
[2022-07-17 23:22] LABS: Prothrombin Time 10.6 sec (9.0-12.0)
--- NOTE | 2022-07-17 23:28 | XR ---
EXAMINATION TYPE: XR chest 2V DATE OF EXAM: 07/17/2022 COMPARISON: 06/19/2022 HISTORY: Short of breath TECHNIQUE: FINDINGS: Heart is normal. Lungs are clear of consolidation. There are no hilar masses. There are arnav st leads. No heart failure. Lateral view is limited by positioning and underexposure. IMPRESSION: No active cardiopulmonary disease. No change
[2022-07-18 00:29] LABS: Albumin 3.6 g/dL (3.5-5.0); Calcium 8.2 mg/dL (8.4-10.2); Potassium 5.2 mmol/L (3.5-5.1); Total Bilirubin 0.5 mg/dL (0.2-1.3); Total Protein 6.3 g/dL (6.3-8.2)
[2022-07-18] MEDS ORDERED: SODIUM CHLORIDE 0.9% 500 ML 500 ML IV STA (00:58)
[2022-07-18] MEDS ORDERED: SODIUM CHLORIDE 0.9% 1,000 ML IV ONE (00:58)
[2022-07-18] MEDS ORDERED: SODIUM CHLORIDE 0.9% 1,000 ML IV STA (00:58)
[2022-07-18] MEDS ORDERED: ACETAMINOPHEN TAB 325 MG TAB PO STA (01:08)
[2022-07-18 05:49] LABS: Appearance,Urine Turbid (Clear); Bacteria,Urine Occasional /hpf; Bilirubin,Urine Negative (Negative); Blood,Urine Small (Negative); Color,Urine Yellow; Glucose,Urine (UA) Negative (Negative); Ketones,Urine Negative (Negative); Leukocyte Esterase,Urine Large (Negative); Mucus,Urine Occasional /hpf; Nitrite,Urine Negative (Negative); Protein,Urine 2+ (Negative); RBC,Urine 3 /hpf (0-5); Specific Gravity,Urine 1.016 (1.001-1.035); Squamous Epithelial Cell,Urine 1 /hpf (0-4); Urobilinogen,Urine <2.0 mg/dL (<2.0); WBC,Urine >182 /hpf (0-5)
[2022-07-18] MEDS ORDERED: ACETAMINOPHEN TAB 325 MG TAB PO PRN (06:27)
[2022-07-18] MEDS ORDERED: NALOXONE 0.4 MG/ML 1 ML VIAL IV PRN (06:27)
[2022-07-18] MEDS: SODIUM CHLORIDE 0.9% 1,000 ML IV SCH ×2 (06:35→09:09)
[2022-07-18] MEDS ORDERED: FAMOTIDINE 20 MG TAB PO SCH (09:00)
[2022-07-18] MEDS ORDERED: LACTULOSE 20 GM/30 ML CUP PO PRN (10:16)
[2022-07-18] MEDS ORDERED: HYDROcodone/APAP 5-325MG 1 EACH TAB PO PRN (10:16)
[2022-07-18] MEDS ORDERED: DICLOFENAC SODIUM GEL 100 GM TUBE TOPICAL PRN (10:16)
[2022-07-18] MEDS ORDERED: DEXTROSE 50% SYRINGE 50 ML IVP PRN ×2 (10:17)
[2022-07-18] MEDS ORDERED: guaiFENesin SYRUP 100MG/5ML 200 MG/10 ML CUP PO PRN (10:18)
[2022-07-18 11:12] LABS: African American GFR (CKD) 78 (>60 ml/min/1.73 sqM); Anion Gap 8 mmol/L; Blood Urea Nitrogen 31 mg/dL (9-20); Calcium 7.7 mg/dL (8.4-10.2); Carbon Dioxide 22 mmol/L (22-30); Chloride 107 mmol/L (98-107); Glucose 167 mg/dL (74-99); Non-African American GFR(CKD) 67 (>60 ml/min/1.73 sqM); Sodium 137 mmol/L (137-145)
[2022-07-18 11:15] LABS: Glucose,Whole Blood 191 mg/dL (70-110)
[2022-07-18] MEDS: ALBUTEROL HFA INHALER INHALATION SCH ×3 (11:33→23:28)
[2022-07-18] MEDS: INSULIN ASPART (NovoLOG) 100 UNIT/ML VIAL SQ SCH ×3 (13:34→21:26)
[2022-07-18] MEDS: GABAPENTIN 100 MG CAP PO SCH ×2 (13:34→21:25)
--- NOTE | 2022-07-18 16:27 | P.HPIM ---
History of Present Illness H&P Date: 07/18/22 This is a 66 year old male with medical history of COPD, diabetes, hypertension, hyperlipidemia, coronary artery disease with prior PCI, muscle weakness, former smoker. Patient has been at [facility] for rehabiliation for the last 9 months. He was sent to the hospital for fever, increased weakness and cough for the last 2 days. Patient was started on azithromycin and prednisone oral without improvemen t. Viral panel was negative for influenza, RSV, and covid. Patient does have some wheezing noted on exam. Has right sided chest pain which is pleuritic and worse with coughing and deep breathing. Denies shortness of breath, denies nausea, vomiting or diarrhea. He has fever of 101.1. on admission. No white count on admission. Sodium of 135, BUN 33 and creatinine 1.46. Urinalysis showing small blood, large leukocyte esterase, >182 WBC. He has been admitted and started on IV ceftriaxone and oral steroids for acute COPD exacerbation. Procalcitonin level will be checked. Lisinopril has been placed on hold secondary to elevated potassium and creatinine. REVIEW OF SYSTEMS: CONSTITUTIONAL: Reports fever. HEENT: No recent visual problems or hearing problems. Denied any sore throat. CARDIOVASCULAR: No chest pain, orthopnea, PND, no palpitations, no syncope. PULMONARY: No shortness of breath, no hemoptysis. reports cough. GASTROINTESTINAL: No diarrhea, no nausea, no vomiting, no abdominal pain. NEUROLOGICAL: No headaches, no weakness, no numbness. HEMATOLOGICAL: Denies any bleeding or petechiae. GENITOURINARY: Denies any burning micturition, frequency, or urgency. Reports urinary incontinence MUSCULOSKELETAL/RHEUMATOLOGICAL: Denies any joint pain, swelling, or any muscle pain. ENDOCRINE: Denies any polyuria or polydipsia. The rest of the 14-point review of systems is negative. PHYSICAL EXAMINATION: GENERAL: The patient is alert and oriented x3, not in any acute distress. Well developed, well nourished. Currently on 4L nasal cannula. HEENT: Pupils are round and equally reacting to light. EOMI. No scleral icterus. No conjunctival pallor. Normocephalic, atraumatic. No pharyngeal erythema. No thyromegaly. CARDIOVASCULAR: S1 and S2 present. No murmurs, rubs, or gallops. PULMONARY: Faint expiratory wheezing. ABDOMEN: Soft, nontender, distended, normoactive bowel sounds. No palpable organomegaly. MUSCULOSKELETAL: No joint swelling or deformity. EXTREMITIES: No cyanosis, clubbing, or pedal edema. NEUROLOGICAL: Gross neurological examination did not reveal any focal deficits. Generalized weakness. SKIN: No rashes. Assessment and Plan Assessment Fever with cough Acute hypoxic respiratory failure secondary to acute acute COPD exacerbation and acute tracheobronchitis Abnormal urine rule out acute UTI urine culture is pending Diabetes Mellitus type 2 Coronary artery disease with prior PCI Hypertension Hyperlipidemia Former smoker Muscle weakness and medical debility Obesity GI prophylaxis DVT prophylaxis No Code Plan Continue empiric antibiotics with IV ceftriaxone Oral steroids Continue oxygen support wean as tolerated Check procalcitonin level Check bladder scan PT/OT consultation Supportive care Repeat labs in AM Anticipated hospital stay less than 2 nights. The impression and plan of care has been dictated by Venessa Palomo Nurse Practitioner as directed. Dr. Suhas MD I have performed a history and physical examination and medical decision making of this patient, discussed the same with the dictator, and agree with the dictators assessment and plan as written, documented as a scribe. Based on total visit time, I have performed more than 50% of this visit. Past Medical History Past Medical History: Coronary Artery Disease (CAD), COPD, Diabetes Mellitus, Hyperlipidemia, Hypertension, Osteoarthritis (OA) Additional Past Medical History / Comment(s): stent placement,muscle weakness, difficulty walking, right hip arthritis History of Any Multi-Drug Resistant Organisms: None Reported Additional Past Surgical History / Comment(s): carpel tunnel surgery 06/15/22, lap band around 2018 Past Anesthesia/Blood Transfusion Reactions: No Reported Reaction Smoking Status: Former smoker - Past Family History Father Family Medical History: Myocardial Infarction ([place]) Medications and Allergies Home Medications Medication Instructions Recorded Confirmed Type Albuterol Sulfate [Ventolin HFA] 2 puff INHALATION RT-Q6H 06/16/22 07/18/22 History Aspirin EC [Ecotrin Low Dose] 81 mg PO DAILY@0900 06/16/22 07/18/22 History Atorvastatin Calcium [Lipitor] 40 mg PO HS@2100 06/16/22 07/18/22 History Cholecalciferol [Vitamin D3 (25 25 mcg PO DAILY@0900 06/16/22 07/18/22 History Mcg = 1000 Iu)] Diclofenac Sodium Gel [Voltaren 2 gm TOPICAL BID PRN 06/16/22 07/18/22 History Gel] Famotidine [Pepcid] 20 mg PO DAILY@59906/16/22 07/18/22 History Furosemide [Lasix] 40 mg PO DAILY@0600 06/16/22 07/18/22 History Gabapentin 600 mg PO TID@0600,1400,2200 06/16/22 07/18/22 History HYDROcodone/APAP 5-325MG [[place] 1 tab PO Q4HR PRN 06/16/22 07/18/22 History 5-325] Insulin Aspart [NovoLOG Flexpen] 10 units SQ TID@0800,1200,1700 06/16/22 07/18/22 History Insulin Glargine,Hum.rec.anlog 25 unit SQ HS@209906/16/22 07/18/22 History [Basaglar Kwikpen U-100] Lactulose 10 gm PO DAILY PRN 06/16/22 07/18/22 History Metoprolol Succinate (ER) [Toprol 12.5 mg PO DAILY@89906/16/22 07/18/22 History Xl] Multivitamins, Thera [Multivitamin 1 tab PO DAILY@89906/16/22 07/18/22 History (formulary)] Rhinocort Aqua Suspension 32mcg/Act 1 spray EA NOSTRIL HS@209906/16/22 07/18/22 History Semaglutide [Ozempic] 0.5 mg SQ TU@89906/16/22 07/18/22 History Tamsulosin HCl [Flomax] 0.4 mg PO HS@209906/16/22 07/18/22 History glipiZIDE [Glucotrol] 5 mg PO DAILY@89906/16/22 07/18/22 History lisinopriL [Zestril] 40 mg PO DAILY@89906/16/22 07/18/22 History Azithromycin [Zithromax Z Pack] See Taper PO DIRECTED 07/18/22 07/18/22 History Tracie-Tussin 10 ml PO Q4H PRN 07/18/22 07/18/22 History methylPREDNISolone Dose Pack See Taper PO DIRECTED 07/18/22 07/18/22 History [Medrol Dose Pack] Allergies Allergy/AdvReac Type Severity Reaction Status Date / Time No Known Allergies Allergy Verified 07/18/22 07:25 Physical Exam Vitals: Vital Signs Temp Pulse Pulse Resp BP BP Pulse Ox 07/18/22 12:59 98.3 F 68 16 122/56 100 07/18/22 08:05 98.5 F 18 153/64 97 07/18/22 07:27 97.3 F L 88 22 105/56 96 07/18/22 06:00 66 16 121/67 98 07/18/22 05:00 64 16 117/59 96 07/18/22 04:00 63 16 95/51 97 07/18/22 03:00 67 16 94/47 97 07/18/22 02:00 63 16 116/57 98 07/18/22 01:23 75 18 98/47 97 07/18/22 00:55 100.7 F H 72 18 86/44 94 L 07/17/22 21:59 18 07/17/22 21:50 101.1 F H 92 18 127/56 96 Intake and Output 07/18/22 07/18/22 07/18/22 06:59 14:59 22:59 Intake Total 720 Output Total 600 Balance 120 Intake: Oral 720 Output: Urine 600 Other: Voiding Method Diaper Incontinent External Catheter Weight 139.253 kg 139.253 kg Results CBC & Chem 7: 07/17/22 22:57 07/18/22 10:38 Labs: Abnormal Lab Results - Last 24 Hours (Table) 07/17/22 07/17/22 07/18/22 Range/Units 22:57 23:33 04:00 RBC 3.64 L (4.30-5.90) m/uL Hgb 11.5 L (13.0-17.5) gm/dL Hct 34.0 L (39.0-53.0) % Plt Count 119 L (150-450) k/uL Neutrophils # 7.9 H (1.3-7.7) k/uL Lymphocytes # 0.4 L (1.0-4.8) k/uL Sodium 135 L (137-145) mmol/L Potassium 5.2 H (3.5-5.1) mmol/L BUN 33 H (9-20) mg/dL Creatinine 1.46 H (0.66-1.25) mg/dL Glucose 151 H (74-99) mg/dL POC Glucose (mg/dL) (70-110) mg/dL Hemoglobin A1c (0.0-6.0) % Calcium 8.2 L (8.4-10.2) mg/dL Urine Protein 2+ H (Negative) Urine Blood Small H (Negative) Ur Leukocyte Esterase Large H (Negative) Urine WBC >182 H (0-5) /hpf Urine WBC Clumps Many H (None) /hpf Urine Bacteria Occasional H (None) /hpf Urine Mucus Occasional H (None) /hpf 07/18/22 07/18/22 07/18/22 Range/Units 10:38 10:38 11:15 RBC (4.30-5.90) m/uL Hgb (13.0-17.5) gm/dL Hct (39.0-53.0) % Plt Count (150-450) k/uL Neutrophils # (1.3-7.7) k/uL Lymphocytes # (1.0-4.8) k/uL Sodium (137-145) mmol/L Potassium (3.5-5.1) mmol/L BUN 31 H (9-20) mg/dL Creatinine (0.66-1.25) mg/dL Glucose 167 H (74-99) mg/dL POC Glucose (mg/dL) 191 H (70-110) mg/dL Hemoglobin A1c 6.9 H (0.0-6.0) % Calcium 7.7 L (8.4-10.2) mg/dL Urine Protein (Negative) Urine Blood (Negative) Ur Leukocyte Esterase (Negative) Urine WBC (0-5) /hpf Urine WBC Clumps (None) /hpf Urine Bacteria (None) /hpf Urine Mucus (None) /hpf Thrombosis Risk Factor Assmnt - Choose All That Apply Any of the Below Risk Factors Present?: Yes Each Factor Represents 1 point: Abnormal pulmonary function (COPD), Obesity (BMI >25) Other Risk Factors: Yes Each Risk Factor Represents 2 Points: Age 61-74 years Other congenital or acquired thrombophilia - If yes, enter type in comment: No Thrombosis Risk Factor Assessment Total Risk Factor Score: 4 Thrombosis Risk Factor Assessment Level: Moderate Risk Assessment and Plan Time with Patient: Less than 30
[2022-07-18] MEDS: predniSONE 20 MG TAB PO SCH (16:43)
[2022-07-18 17:02] LABS: Glucose,Whole Blood 201 mg/dL (70-110)
[2022-07-18] MEDS ORDERED: ATORVASTATIN 40 MG TAB PO SCH (21:00)
[2022-07-18] MEDS ORDERED: TAMSULOSIN 0.4 MG CAP.ER.24H PO SCH (21:00)
[2022-07-18] MEDS ORDERED: INSULIN DETEMIR (LEVEMIR) 100 UNIT/ML SYR SQ SCH (21:00)
[2022-07-18 21:15] LABS: Glucose,Whole Blood 307 mg/dL (70-110)
[2022-07-18] MEDS: HEPARIN SODIUM,PORCINE/PF 5,000 UNIT/0.5 ML SYRINGE SQ SCH (21:26)
[2022-07-19] MEDS: BENZOCAINE/MENTHOL LOZENG 1 EACH LOZENGE MUCOUS MEM PRN ×2 (04:25→09:49)
[2022-07-19] MEDS ORDERED: FAMOTIDINE 20 MG TAB PO SCH (06:00)
[2022-07-19] MEDS: GABAPENTIN 100 MG CAP PO SCH ×2 (06:18→15:13)
[2022-07-19] MEDS: SODIUM CHLORIDE 0.9% 1,000 ML IV SCH (06:20)
[2022-07-19 07:21] LABS: Glucose,Whole Blood 203 mg/dL (70-110)
[2022-07-19] MEDS: ALBUTEROL HFA INHALER INHALATION SCH ×3 (08:33→18:16)
[2022-07-19] MEDS: INSULIN ASPART (NovoLOG) 100 UNIT/ML VIAL SQ SCH ×6 (08:54→18:15)
[2022-07-19] MEDS ORDERED: CHOLECALCIFEROL 25 MCG (1000 IU) TABLET PO SCH (09:00)
[2022-07-19] MEDS ORDERED: glipiZIDE 5 MG TAB PO SCH (09:00)
[2022-07-19] MEDS ORDERED: METOPROLOL SUCCINATE (ER) 25 MG TAB.ER.24H PO SCH (09:00)
[2022-07-19] MEDS ORDERED: MULTIVITAMINS, THERA 1 EACH TAB PO SCH (09:00)
[2022-07-19] MEDS ORDERED: ASPIRIN 81 MG PO SCH (09:00)
[2022-07-19] MEDS: HEPARIN SODIUM,PORCINE/PF 5,000 UNIT/0.5 ML SYRINGE SQ SCH (09:48)
[2022-07-19] MEDS: predniSONE 20 MG TAB PO SCH (09:48)
[2022-07-19] MEDS ORDERED: amLODIPine 10 MG TAB PO SCH (10:00)
[2022-07-19 11:19] LABS: Glucose,Whole Blood 175 mg/dL (70-110)
[2022-07-19 13:02] VITALS: BP 162/99; PULSE 74; RESP 16; TEMP 97.8
--- NOTE | 2022-07-19 15:38 | P.DS ---
Providers Date of admission: 07/18/22 06:29 Attending physician: Samir Garvey Primary care physician: Jeffrey Frank Hospital Course: Final Diagnosis Fever with cough Acute hypoxic respiratory failure secondary to acute acute COPD exacerbation and acute tracheobronchitis viral etiology Abnormal urine unlikely acute UTI. Follow up culture. Diabetes Mellitus type 2 hgb A1C 6.9. Coronary artery disease with prior PCI Hypertension Hyperlipidemia Former smoker Muscle weakness and medical debility Obesity No Code Discharge Disposition Patient is evaluated today sitting up in chair. He is stable for discharge back to [facility] today. He has been weaned to room air. Patient will continue on oral steroid taper as previous. Albuterol inhaler as needed. Continue oral antibiotics with ceftin 500 mg BID for 5 more days. Recommend to discontinue lisinopril secondary to elevated creatinine and potassium. Patient has been started on amlodipine for blood pressure control. Recommend repeat labs in 2 to 3 days. Hospital Course This is a 66 year old male with medical history of COPD, diabetes, hypertension, hyperlipidemia, coronary artery disease with prior PCI, muscle weakness, former smoker. Patient has been at [facility] for rehabiliation for the last 9 months. He was sent to the hospital for fever, increased weakness and cough for the last 2 days. Patient was started on azithromycin and prednisone oral without improvement. Viral panel was negative for influenza, RSV, and covid. Patient does have some wheezing noted on exam. Has right sided chest pain which is pleuritic and worse with coughing and deep breathing. Denies shortness of breath, denies nausea, vomiting or diarrhea. He has fever of 101.1. on admission. No white count on admission. Sodium of 135, BUN 33 and creatinine 1.46. Urinalysis showing small blood, large leukocyte esterase, >182 WBC. He has been admitted and started on IV ceftriaxone and oral steroids for acute COPD exacerbation. Procalcitonin level is negative at 0.21 this is likely a viral bronchitis. Patient has improved clinically on antibiotics and will finish short course. Lisinopril has been placed on hold secondary to elevated potassium and creatinine. Patient has been started on amlodipine for elevated blood pressure. Creatinine has improved to 1.13. 07/19/2022 Patient is evaluated today sitting up in chair. No acute events overnight. He has been weaned to room air. No chest pain, no shortness of breath. Continues with cough. Supportive care in place. Procalcitonin level is negative for bacterial infection. His lungs are clear. S1 S2 auscultated abdomen is soft and nontender. Focal neurological exam is negative. Patient has generalized weakness and will DC back to [facility] to continue physical therapy. Creatinine has improved. Patient has been afebrile in the last 24 hours. Please see medication reconciliation for a list of current medication. Thank you for allowing us to participate in the care of this patient. The impression and plan of care has been dictated by Venessa Palomo, Nurse Practitioner as directed. Dr. Suhas MD I have performed a history and physical examination and medical decision making of this patient, discussed the same with the dictator, and agree with the dictators assessment and plan as written, documented as a scribe. Based on total visit time, I have performed more than 50% of this visit. Patient Condition at Discharge: Fair Plan - Discharge Summary Discharge Rx Participant: Yes New Discharge Prescriptions: New Benzocaine/Menthol Lozeng [Cepacol lozenge] 1 each MUCOUS MEM Q4HR PRN lozenge PRN Reason: Cough INSULIN ASPART (NovoLOG) [NovoLOG (formulary)] 0 unit SQ ACHS each guaiFENesin SYRUP 100MG/5ML [Robitussin] 200 mg PO TID PRN ml PRN Reason: Cough Acetaminophen Tab [Tylenol] 650 mg PO Q6HR PRN tab PRN Reason: Mild Pain Or Fever > 100.5 amLODIPine [Norvasc] 10 mg PO DAILY tab Continue Diclofenac Sodium Gel [Voltaren Gel] 2 gm TOPICAL BID PRN PRN Reason: HIP PAIN Insulin Aspart [NovoLOG Flexpen] 10 units SQ TID@0800,1200,1700 Metoprolol Succinate (ER) [Toprol XL] 12.5 mg PO DAILY@0900 Cholecalciferol [Vitamin D3 (25 Mcg = 1000 Iu)] 25 mcg PO DAILY@0900 Semaglutide [Ozempic] 0.5 mg SQ TU@0900 Tamsulosin HCl [Flomax] 0.4 mg PO HS@2100 Insulin Glargine,Hum.rec.anlog [Basaglar Kwikpen U-100] 25 unit SQ HS@2100 methylPREDNISolone Dose Pack [Medrol Dose Pack] See Taper PO DIRECTED Tracie-Tussin 10 ml PO Q4H PRN PRN Reason: Cough HYDROcodone/APAP 5-325MG [[place] 5-325] 1 tab PO Q4HR PRN #6 tab PRN Reason: Pain Lactulose 10 gm PO DAILY PRN PRN Reason: Constipation Gabapentin 600 mg PO TID@0600,1400,2200 Albuterol Sulfate [Ventolin HFA] 2 puff INHALATION RT-Q6H Multivitamins, Thera [Multivitamin (formulary)] 1 tab PO DAILY@0900 Rhinocort Aqua Suspension 32mcg/Act 1 spray EA NOSTRIL HS@2099 glipiZIDE [Glucotrol] 5 mg PO DAILY@0900 Furosemide [Lasix] 40 mg PO DAILY@0600 Atorvastatin Calcium [Lipitor] 40 mg PO HS@2099 Famotidine [Pepcid] 20 mg PO DAILY@0600 Aspirin EC [Ecotrin Low Dose] 81 mg PO DAILY@0900 Discontinued lisinopriL [Zestril] 40 mg PO DAILY@0900 Azithromycin [Zithromax Z Pack] See Taper PO DIRECTED Discharge Medication List Albuterol Sulfate [Ventolin HFA] 2 puff INHALATION RT-Q6H 06/16/22 [History] Aspirin EC [Ecotrin Low Dose] 81 mg PO DAILY@0900 06/16/22 [History] Atorvastatin Calcium [Lipitor] 40 mg PO HS@209906/16/22 [History] Cholecalciferol [Vitamin D3 (25 Mcg = 1000 Iu)] 25 mcg PO DAILY@0900 06/16/22 [History] Diclofenac Sodium Gel [Voltaren Gel] 2 gm TOPICAL BID PRN 06/16/22 [History] Famotidine [Pepcid] 20 mg PO DAILY@0600 06/16/22 [History] Furosemide [Lasix] 40 mg PO DAILY@0600 06/16/22 [History] Gabapentin 600 mg PO TID@0600,1400,2200 06/16/22 [History] Insulin Aspart [NovoLOG Flexpen] 10 units SQ TID@0800,1200,1700 06/16/22 [History] Insulin Glargine,Hum.rec.anlog [Basaglar Kwikpen U-100] 25 unit SQ HS@209906/16/22 [History] Lactulose 10 gm PO DAILY PRN 06/16/22 [History] Metoprolol Succinate (ER) [Toprol XL] 12.5 mg PO DAILY@89906/16/22 [History] Multivitamins, Thera [Multivitamin (formulary)] 1 tab PO DAILY@89906/16/22 [History] Rhinocort Aqua Suspension 32mcg/Act 1 spray EA NOSTRIL HS@209906/16/22 [History] Semaglutide [Ozempic] 0.5 mg SQ TU@89906/16/22 [History] Tamsulosin HCl [Flomax] 0.4 mg PO HS@209906/16/22 [History] glipiZIDE [Glucotrol] 5 mg PO DAILY@89906/16/22 [History] Tracie-Tussin 10 ml PO Q4H PRN 07/18/22 [History] methylPREDNISolone Dose Pack [Medrol Dose Pack] See Taper PO DIRECTED 07/18/22 [History] Acetaminophen Tab [Tylenol] 650 mg PO Q6HR PRN tab 07/19/22 [Rx] Benzocaine/Menthol Lozeng [Cepacol lozenge] 1 each MUCOUS MEM Q4HR PRN lozenge 07/19/22 [Rx] HYDROcodone/APAP 5-325MG [[place] 5-325] 1 tab PO Q4HR PRN #6 tab 07/19/22 [Rx] INSULIN ASPART (NovoLOG) [NovoLOG (formulary)] 0 unit SQ ACHS each 07/19/22 [Rx] amLODIPine [Norvasc] 10 mg PO DAILY tab 07/19/22 [Rx] guaiFENesin SYRUP 100MG/5ML [Robitussin] 200 mg PO TID PRN ml 07/19/22 [Rx] Follow up Appointment(s)/Referral(s): Jeffrey Frank MD [Primary Care Provider] - 1-2 days Ambulatory/Diagnostic Orders: Basic Metabolic Panel [LAB.AMB] Time Frame: 2 Days, Location: None Selected Discharge Disposition: TRANSFER TO SNF/ECF
[2022-07-19 17:14] LABS: Glucose,Whole Blood 183 mg/dL (70-110)
--- NOTE | 2022-07-21 20:15 | CDI ---
Documentation Clarification Form Date: 07/21/2022 8:00:12 PM From: Terese Saavedra Phone: Admit Date: 07/18/2022 6:29:00 AM Patient Name: Zoltan Peace Visit Number: [id number] Discharge Date: 07/19/2022 7:11:00 PM ATTENTION: The Clinical Documentation Specialists (CDI) and [facility] Coding Staff appreciate your assistance in clarifying documentation. Please respond to the clarification below the line at the bottom and electronically sign. The CDI & [facility] Coding staff will review the response and follow-up if needed. Please note: Queries are made part of the Legal Health Record. If you have any questions, please contact the author of this message via ITS. Dr. Kristofer Dai Your patient has diagnostic/radiology results: Enterococcus faecium with multi drug resistance. Please clarify if there is an additional diagnosis and/or clinical significance related to this result. History/Risk Factors: 66yo M, AHRF, AECOPD, acute tracheobronchitis, DMII, CAD w stent, HTN, HLD, Hx smoker, DNR, muscle weakness, medicaldebility, Obesity Clinical indicators: Vital Signs: Temp Pulse Resp BP Pulse Ox 98.3 F 68 16 122/56 100 WBC: 9.0 Urine Culture: Enterococcus faecium Treatment: Abnormalurinerule outacuteUTIurine culture ispending Is there an additional diagnosis and/or clinical significance related to the above diagnostic/radiology result? [ x ] UTI due to Enterococcus faecium with multi drug resistance [ ] Result is not clinically significant (no additional diagnosis) [ ] Other, please specify [ ] Unable to determine (Template Last Reviewed: June 2020) MTDD
== END 2022-07-19 19:11 ==
LOC: EC 21:45 → 5NMEDONC 07-18 06:29 → INTOOBSV 07-18 06:29 → 5NMEDONC 07-18 07:01 → UNDODISIN 07-19 19:11
PROVIDERS: ADMIT Hospitalist; ATTEND Hospitalist
DX: R50.9 Fever, unspecified (principal); J20.8 Acute bronchitis due to other specified organisms; J44.0 Chronic obstructive pulmonary disease with (acute) lower respiratory infection; J44.1 Chronic obstructive pulmonary disease with (acute) exacerbation; J96.01 Acute respiratory failure with hypoxia; E11.9 Type 2 diabetes mellitus without complications; I10 Essential (primary) hypertension; E78.5 Hyperlipidemia, unspecified; E66.9 Obesity, unspecified; I25.10 Atherosclerotic heart disease of native coronary artery without angina pectoris; Z79.82 Long term (current) use of aspirin; Z79.899 Other long term (current) drug therapy; Z79.4 Long term (current) use of insulin; Z82.49 Family history of ischemic heart disease and other diseases of the circulatory system; Z98.84 Bariatric surgery status; Z20.822 Contact with and (suspected) exposure to COVID-19; Z95.5 Presence of coronary angioplasty implant and graft; Z87.891 Personal history of nicotine dependence; Z68.39 Body mass index [BMI] 39.0-39.9, adult
CPT/HCPCS: 96361; 96372 ×2; 96365 ×2; 99285; 36415 ×2; 94640 ×4; 93005; 97530; 97162; 97166; 80053; 80048; 83605; 84484; 85025; 85610; 85730; 81001; 87040; 87086; 87077; 87186; 83036; 84145; 87636; 71046; G0378 ×2; J0696 ×2; J7512 ×2; J1644 ×2

== ENCOUNTER 2023-02-09 08:27 | Inpatient (IN) | payer MEDICARE, OTHER ==
[2023-02-09 08:54] LABS: Basophils % (A) 0 %; Eosinophils # (A) 0.2 k/uL (0-0.7); Eosinophils % (A) 3 %; HCT 36.9 % (39.0-53.0); HGB 12.7 gm/dL (13.0-17.5); Lymphocytes # (A) 1.8 k/uL (1.0-4.8); Lymphocytes % (A) 23 %; MCH 32.7 pg (25.0-35.0); MCHC 34.3 g/dL (31.0-37.0); MCV 95.3 fL (80.0-100.0); Mean Platelet Volume 8.2; Monocytes # (A) 0.5 k/uL (0-1.0); Monocytes % (A) 6 %; Neutrophils # (A) 5.3 k/uL (1.3-7.7); Neutrophils % (A) 66 %; Platelet Count 129 k/uL (150-450); RBC 3.87 m/uL (4.30-5.90); RDW 13.6 % (11.5-15.5)
[2023-02-09 09:06] LABS: ALT 19 U/L (4-49); African American GFR (CKD) >90 (>60 ml/min/1.73 sqM); Anion Gap 9 mmol/L; Blood Urea Nitrogen 24 mg/dL (9-20); Calcium 8.7 mg/dL (8.4-10.2); Carbon Dioxide 24 mmol/L (22-30); Chloride 103 mmol/L (98-107); Glucose 149 mg/dL (74-99); Non-African American GFR(CKD) 82 (>60 ml/min/1.73 sqM); Sodium 136 mmol/L (137-145); Total Bilirubin 0.6 mg/dL (0.2-1.3)
[2023-02-09 09:17] LABS: Prothrombin Time 10.6 sec (9.0-12.0)
--- NOTE | 2023-02-09 09:18 | XR ---
EXAMINATION TYPE: XR chest 2V DATE OF EXAM: 02/09/2023 COMPARISON: 07/17/2022 HISTORY: 67-year-old male dysrhythmia TECHNIQUE: AP and lateral views FINDINGS: Heart upper limits of normal in size. Mild interstitial prominence in part be technical due to the la rge body habitus and magnification. No anita consolidation or pleural effusion seen. IMPRESSION: Limited by large body habitus. Borderline heart size. Interstitial prominence may be technical. No fo acacia infiltrate is seen.
[2023-02-09 09:29] LABS: Magnesium 1.8 mg/dL (1.6-2.3); Potassium 5.1 mmol/L (3.5-5.1)
[2023-02-09 09:30] LABS: AST 28 U/L (17-59); Alkaline Phosphatase 48 U/L (38-126)
[2023-02-09 09:36] LABS: Partial Thromboplastin Time 21.6 sec (22.0-30.0)
[2023-02-09] MEDS ORDERED: HEPARIN SODIUM 1,000 UN/ML (10ML VL) IV ONE (09:44)
[2023-02-09] MEDS ORDERED: HEPARIN SODIUM 1,000 UN/ML (10ML VL) IV PRN (09:44)
[2023-02-09] MEDS ORDERED: HEPARIN SOD,PORK IN 0.45% NACL 25,000 UNIT in 0.45% NACL 1 250ML.BAG IV SCH (09:45)
--- NOTE | 2023-02-09 09:45 | ED ---
General Adult HPI - General Chief complaint: Chest Pain Stated complaint: A-Fib Time Seen by Provider: 02/09/23 08:35 Source: patient, EMS Mode of arrival: EMS Limitations: no limitations - History of Present Illness Initial comments: 67-year-old male past medical history of diabetes, hypertension presents from [facility] for elevated heart rate. Patient states that he was at breakfast when he had sudden onset of heartburn. States that this is common for him. He went back to his room and laid down. States that his symptoms did alleviate. Staff took his vitals and found that he had an elevated irregular heart rate. Stable blood pressure. EMS was called. EKG was performed and demonstrated new onset A. fib. He does not take any blood thinners. Patient does take 12.5 of metoprolol succinate daily which was already administered to the patient. He denies any symptoms at this time. No chest pain or shortness of breath. Denies any contraindication to anticoagulation. No history of hemorrhagic stroke or GI bleeding. Patient denies any coronary disease. No recent head trauma. No alleviating, precipitating or modifying factors - Related Data Home Medications Medication Instructions Recorded Confirmed Albuterol Sulfate [Ventolin HFA] 2 puff INHALATION RT-Q6H 06/16/22 02/09/23 Aspirin EC [Ecotrin Low Dose] 81 mg PO DAILY@89906/16/22 02/09/23 Atorvastatin Calcium [Lipitor] 40 mg PO HS@209906/16/22 02/09/23 Cholecalciferol [Vitamin D3 (25 25 mcg PO DAILY@89906/16/22 02/09/23 Mcg = 1000 Iu)] Diclofenac Sodium Gel [Voltaren 1% 2 gm TOPICAL BID PRN 06/16/22 02/09/23 Gel] Famotidine [Pepcid] 20 mg PO DAILY@00 06/16/22 02/09/23 Furosemide [Lasix] 40 mg PO DAILY@59906/16/22 02/09/23 Gabapentin 600 mg PO TID@0600,1400,2200 06/16/22 02/09/23 Insulin Aspart [NovoLOG Flexpen] 10 units SQ TID@0800,1200,1700 06/16/22 02/09/23 Insulin Glargine,Hum.rec.anlog 25 unit SQ HS@209906/16/22 02/09/23 [Basaglyvette Cadena U-100] Lactulose 10 gm PO DAILY PRN 06/16/22 02/09/23 Metoprolol Succinate (ER) [Toprol 12.5 mg PO DAILY@89906/16/22 02/09/23 XL] Multivitamins, Thera [Multivitamin 1 tab PO DAILY@89906/16/22 02/09/23 (formulary)] Rhinocort Aqua Suspension 32mcg/Act 1 spray EA NOSTRIL HS@209906/16/22 02/09/23 Semaglutide [Ozempic] 0.5 mg SQ WE@89906/16/22 02/09/23 Tamsulosin HCl [Flomax] 0.4 mg PO HS@209906/16/22 02/09/23 glipiZIDE [Glucotrol] 5 mg PO DAILY@89906/16/22 02/09/23 Benzocaine/Menthol Lozeng [Cepacol 1 lozenge MUCOUS MEM Q4HR PRN 02/09/23 02/09/23 lozenge] Calcium Carb-Vit D 500Mg-5Mcg 1 tab PO BID 02/09/23 02/09/23 [Oscal 500+D 5 Mcg (200 Iu)] Guaifenesin/Dextromethorphan 10 ml PO Q4H PRN 02/09/23 02/09/23 [Tracie-Tussin Dm 200-20 mg/10 ml] HYDROcodone/APAP 7.5-325MG [[place] 1 tab PO Q4H PRN 02/09/23 02/09/23 7.5-325] Sennosides [Senokot] 17.2 mg PO DAILY 02/09/23 02/09/23 amLODIPine [Norvasc] 10 mg PO HS 02/09/23 02/09/23 lisinopriL [Zestril] 10 mg PO DAILY 02/09/23 02/09/23 Previous Rx's Medication Instructions Recorded Acetaminophen Tab [Tylenol] 650 mg PO Q6HR PRN tab 07/19/22 guaiFENesin SYRUP 100MG/5ML 200 mg PO TID PRN ml 07/19/22 [Robitussin] Allergies Allergy/AdvReac Type Severity Reaction Status Date / Time No Known Allergies Allergy Verified 02/09/23 09:54 Review of Systems ROS Statement: Those systems with pertinent positive or pertinent negative responses have been documented in the HPI. ROS Other: All systems not noted in ROS Statement are negative. Past Medical History Past Medical History: Diabetes Mellitus, Hypertension Additional Past Medical History / Comment(s): stent placement History of Any Multi-Drug Resistant Organisms: None Reported Additional Past Surgical History / Comment(s): carpel tunnel surgery 06/15/22, lap band around 2017 Past Anesthesia/Blood Transfusion Reactions: No Reported Reaction Past Psychological History: No Psychological Hx Reported Smoking Status: Former smoker Past Alcohol Use History: None Reported Past Drug Use History: None Reported - Past Family History Father Family Medical History: Myocardial Infarction ([place]) General Exam Limitations: no limitations General appearance: alert, in no apparent distress Head exam: Present: atraumatic, normocephalic, normal inspection Eye exam: Present: normal appearance, PERRL, EOMI. Absent: scleral icterus, conjunctival injection, periorbital swelling ENT exam: Present: normal exam, mucous membranes moist Neck exam: Present: normal inspection. Absent: tenderness, meningismus, lymphadenopathy Respiratory exam: Present: normal lung sounds bilaterally. Absent: respiratory distress, wheezes, rales, rhonchi, stridor Cardiovascular Exam: Present: tachycardia, irregular rhythm, normal heart sounds. Absent: systolic murmur, diastolic murmur, rubs, gallop, clicks GI/Abdominal exam: Present: soft, normal bowel sounds. Absent: distended, tenderness, guarding, rebound, rigid Extremities exam: Present: normal inspection, full ROM, normal capillary refill. Absent: tenderness, pedal edema, joint swelling, calf tenderness Back exam: Present: normal inspection Neurological exam: Present: alert, oriented X3, CN II-XII intact Psychiatric exam: Present: normal affect, normal mood Skin exam: Present: warm, dry, intact, normal color. Absent: rash Course Vital Signs 02/09/23 02/09/23 02/09/23 08:29 10:08 11:00 Temperature 98.3 F Pulse Rate 153 H 155 H 142 H Respiratory 20 20 18 Rate Blood Pressure 147/108 92/71 107/69 O2 Sat by Pulse 95 96 98 Oximetry 02/09/23 02/09/23 02/09/23 12:19 12:57 13:00 Temperature Pulse Rate 156 H 147 H 128 H Respiratory 18 18 Rate Blood Pressure 92/80 112/75 120/76 O2 Sat by Pulse 93 L 98 98 Oximetry 02/09/23 02/09/23 02/09/23 13:39 14:00 15:00 Temperature Pulse Rate 125 H 140 H 135 H Respiratory 18 18 18 Rate Blood Pressure 110/95 116/85 120/76 O2 Sat by Pulse 97 98 Oximetry 02/09/23 02/09/23 02/09/23 16:00 16:24 17:13 Temperature Pulse Rate 154 H 158 H 141 H Respiratory 18 18 18 Rate Blood Pressure 113/65 135/95 110/71 O2 Sat by Pulse 98 96 95 Oximetry 02/09/23 02/09/23 02/09/23 17:50 18:30 18:51 Temperature Pulse Rate 120 H 168 H 101 H Respiratory 18 18 18 Rate Blood Pressure 109/77 139/48 121/84 O2 Sat by Pulse 97 97 97 Oximetry 02/09/23 02/09/23 02/09/23 19:30 20:00 20:26 Temperature Pulse Rate 158 H 101 H 97 Respiratory 17 16 Rate Blood Pressure 102/61 106/69 O2 Sat by Pulse 97 95 Oximetry 02/09/23 02/09/23 02/09/23 20:30 20:34 21:00 Temperature Pulse Rate 98 123 H 121 H Respiratory 15 16 Rate Blood Pressure 103/50 113/96 O2 Sat by Pulse 95 97 Oximetry 02/09/23 02/09/23 02/09/23 21:30 22:00 22:30 Temperature Pulse Rate 131 H 161 H 141 H Respiratory 14 17 16 Rate Blood Pressure 122/77 118/75 101/72 O2 Sat by Pulse 96 95 97 Oximetry 02/09/23 02/09/23 02/09/23 23:00 23:30 23:47 Temperature Pulse Rate 138 H 151 H 124 H Respiratory 16 15 18 Rate Blood Pressure 116/70 106/53 101/70 O2 Sat by Pulse 96 96 96 Oximetry 02/10/23 02/10/23 02/10/23 00:05 00:30 01:00 Temperature Pulse Rate 154 H Respiratory 18 18 17 Rate Blood Pressure 90/70 100/85 O2 Sat by Pulse 96 97 97 Oximetry 09/29/23 09/29/23 09/29/23 01:30 02:00 02:30 Temperature Pulse Rate 151 H 154 H Respiratory 19 18 17 Rate Blood Pressure 116/87 112/64 124/88 O2 Sat by Pulse 97 96 97 Oximetry 02/10/23 02/10/23 02/10/23 03:30 04:00 04:30 Temperature Pulse Rate 128 H 172 H 168 H Respiratory 19 18 18 Rate Blood Pressure 136/71 126/83 119/79 O2 Sat by Pulse 96 96 98 Oximetry 02/10/23 02/10/23 02/10/23 05:00 05:30 06:00 Temperature Pulse Rate 165 H 176 H 154 H Respiratory 17 18 16 Rate Blood Pressure 199/179 101/53 124/87 O2 Sat by Pulse 95 96 96 Oximetry Medical Decision Making - Medical Decision Making Was pt. sent in by a medical professional or institution (, PA, DAIRY HUSBANDRY WORKER, urgent care, hospital, or penitentiary...) When possible be specific @ -Patient was sent by [facility] Did you speak to anyone other than the patient for history (EMS, parent, family, police, friend...)? What history was obtained from this source @ -Spoke with EMS Did you review nursing and triage notes (agree or disagree)? Why? @ -I reviewed and agree with nursing and triage notes Were old charts reviewed (outside hosp., previous admission, EMS record, old EKG, old radiological studies, urgent care reports/EKG's, penitentiary records)? Report findings @ -No old charts were reviewed Differential Diagnosis (chest pain, altered mental status, abdominal pain women, abdominal pain men, vaginal bleeding, weakness, fever, dyspnea, syncope, headache, dizziness, GI bleed, back pain, seizure, CVA, palpatations, mental health, musculoskeletal)? @ -Differential Palpitations Ventricular arrhythmias, atrial arrhythmias, myocardial infarction, anemia, thyrotoxicosis, electrolyte imbalance, hypokalemia, pulmonary embolism, pulmonary disease, drugs, alcohol, anxiety, stress.... This is not meant to be an all-inclusive list. EKG interpreted by me (3pts min.). @ -Yes and demonstrates A. fib with a rapid rate of 146. QRS 83. QTC 349. No acute ST segment elevations or depressions X-rays interpreted by me (1pt min.). @ -Yes and demonstrates mild congestion CT interpreted by me (1pt min.). @ -Yes and does not demonstrate PE U/S interpreted by me (1pt. min.). @ -None done What testing was considered but not performed or refused? (CT, X-rays, U/S, labs)? Why? @ -None What meds were considered but not given or refused? Why? @ -None Did you discuss the management of the patient with other professionals (professionals i.e. DrArline, PA, DAIRY HUSBANDRY WORKER, lab, RT, psych nurse, school social worker, renal medicine physician, teacher, development officer, keycase assembler)? Give summary @ -Spoke with Dr. wiseman who agreed to admit the patient Was smoking cessation discussed for >3mins.? @ -No Was critical care preformed (if so, how long)? @ -Yes, 35 minutes Were there social determinants of health that impacted care today? How? (Homelessness, low income, unemployed, alcoholism, drug addiction, transportation, low edu. Level, literacy, decrease access to med. care, alf, rehab)? @ -No Was there de-escalation of care discussed even if they declined (Discuss DNR or withdrawal of care, Hospice)? DNR status @ -No What co-morbidities impacted this encounter? (DM, HTN, Smoking, COPD, CAD, Cancer, CVA, ARF, Chemo, Hep., AIDS, mental health diagnosis, sleep apnea, morbid obesity)? @ -Diabetes, hypertension Was patient admitted / discharged? Hospital course, mention meds given and route, prescriptions, significant lab abnormalities, going to OR and other pertinent info. @ -Arrival patient was placed into room 6. Thorough history and physical exam was performed. IV is established. Laboratory studies were conducted. Chest x- rays performed. Patient was given a liter bolus normal saline and started on a Cardizem drip. I did speak with Dr. wiseman about admitting the patient. He is requesting d-dimer which does come back elevated. Patient sent for CT which does not demonstrate PE. Patient will be admitted for new-onset A. fib with RVR. Cardiology will be consulted Undiagnosed new problem with uncertain prognosis? @ -Yes Drug Therapy requiring intensive monitoring for toxicity (Heparin, Nitro, Insulin, Cardizem)? @ -Yes, heparin and Cardizem Were any procedures done? @ -No Diagnosis/symptom? @ -New onset A. fib with RVR Acute, or Chronic, or Acute on Chronic? @ -acute Uncomplicated (without systemic symptoms) or Complicated (systemic symptoms)? @ -complicated Side effects of treatment? @ -No Exacerbation, Progression, or Severe Exacerbation? @ -No Poses a threat to life or bodily function? How? (Chest pain, [place], [place], pneumonia, PE, COPD, DKA, ARF, appy, cholecystitis, CVA, Diverticulitis, Homicidal, Suicidal, threat to staff... and all critical care pts) @ -yes patient arrives a significantly elevated heart rate - Lab Data Result diagrams: 02/10/23 06:09 02/10/23 06:09 Lab Results 02/09/23 02/09/23 02/09/23 Range/Units 08:42 08:42 08:42 WBC 8.0 (3.8-10.6) k/uL RBC 3.87 L (4.30-5.90) m/uL Hgb 12.7 L (13.0-17.5) gm/dL Hct 36.9 L (39.0-53.0) % MCV 95.3 (80.0-100.0) fL MCH 32.7 (25.0-35.0) pg MCHC 34.3 (31.0-37.0) g/dL RDW 13.6 (11.5-15.5) % Plt Count 129 L (150-450) k/uL MPV 8.2 Neutrophils % 66 % Lymphocytes % 23 % Monocytes % 6 % Eosinophils % 3 % Basophils % 0 % Neutrophils # 5.3 (1.3-7.7) k/uL Lymphocytes # 1.8 (1.0-4.8) k/uL Monocytes # 0.5 (0-1.0) k/uL Eosinophils # 0.2 (0-0.7) k/uL Basophils # 0.0 (0-0.2) k/uL PT 10.6 (9.0-12.0) sec INR 1.0 (<1.2) APTT 21.6 L (22.0-30.0) sec D-Dimer (<0.60) mg/L FEU Sodium 136 L (137-145) mmol/L Potassium 5.1 (3.5-5.1) mmol/L Chloride 103 (98-107) mmol/L Carbon Dioxide 24 (22-30) mmol/L Anion Gap 9 mmol/L BUN 24 H (9-20) mg/dL Creatinine 0.95 (0.66-1.25) mg/dL Est GFR (CKD-EPI)AfAm >90 (>60 ml/min/1.73 sqM) Est GFR (CKD-EPI)NonAf 82 (>60 ml/min/1.73 sqM) Glucose 149 H (74-99) mg/dL Calcium 8.7 (8.4-10.2) mg/dL Magnesium 1.8 (1.6-2.3) mg/dL Total Bilirubin 0.6 (0.2-1.3) mg/dL AST 28 (17-59) U/L ALT 19 (4-49) U/L Alkaline Phosphatase 48 (38-126) U/L Troponin I (0.000-0.034) ng/mL Total Protein 7.0 (6.3-8.2) g/dL Albumin 4.0 (3.5-5.0) g/dL TSH 2.440 (0.465-4.680) mIU/L 02/09/23 02/09/23 Range/Units 08:42 08:42 WBC (3.8-10.6) k/uL RBC (4.30-5.90) m/uL Hgb (13.0-17.5) gm/dL Hct (39.0-53.0) % MCV (80.0-100.0) fL MCH (25.0-35.0) pg MCHC (31.0-37.0) g/dL RDW (11.5-15.5) % Plt Count (150-450) k/uL MPV Neutrophils % % Lymphocytes % % Monocytes % % Eosinophils % % Basophils % % Neutrophils # (1.3-7.7) k/uL Lymphocytes # (1.0-4.8) k/uL Monocytes # (0-1.0) k/uL Eosinophils # (0-0.7) k/uL Basophils # (0-0.2) k/uL PT (9.0-12.0) sec INR (<1.2) APTT (22.0-30.0) sec D-Dimer 1.69 H (<0.60) mg/L FEU Sodium (137-145) mmol/L Potassium (3.5-5.1) mmol/L Chloride (98-107) mmol/L Carbon Dioxide (22-30) mmol/L Anion Gap mmol/L BUN (9-20) mg/dL Creatinine (0.66-1.25) mg/dL Est GFR (CKD-EPI)AfAm (>60 ml/min/1.73 sqM) Est GFR (CKD-EPI)NonAf (>60 ml/min/1.73 sqM) Glucose (74-99) mg/dL Calcium (8.4-10.2) mg/dL Magnesium (1.6-2.3) mg/dL Total Bilirubin (0.2-1.3) mg/dL AST (17-59) U/L ALT (4-49) U/L Alkaline Phosphatase (38-126) U/L Troponin I 0.016 (0.000-0.034) ng/mL Total Protein (6.3-8.2) g/dL Albumin (3.5-5.0) g/dL TSH (0.465-4.680) mIU/L Disposition Clinical Impression: Atrial fibrillation with RVR Disposition: ADMITTED IP TO THIS [facility] Condition: Stable Is patient prescribed a controlled substance at d/c from ED?: No Time of Disposition: 10:48 Decision to Admit Reason: Admit from EC Decision Date: 02/09/23 Decision Time: 10:48
[2023-02-09] MEDS ORDERED: SODIUM CHLORIDE 0.9% 1,000 ML IV ONE (10:19)
[2023-02-09] MEDS ORDERED: NALOXONE 0.4 MG/ML 1 ML VIAL IV PRN (10:50)
[2023-02-09] MEDS: DILTIAZEM 125 MG in SODIUM CHLORIDE 0.9% 100 ML IV SCH (11:05)
[2023-02-09] MEDS: DILTIAZEM DRIP BOLUS FROM BAG 1 MG SOLN IV ONE ×3 (11:06→13:00)
[2023-02-09] MEDS: SODIUM CHLORIDE 0.9% 1,000 ML IV SCH ×2 (11:08→18:15)
[2023-02-09] MEDS ORDERED: guaiFENesin SYRUP 100MG/5ML 200 MG/10 ML CUP PO PRN (11:14)
[2023-02-09] MEDS ORDERED: BENZOCAINE/MENTHOL LOZENG 1 EACH LOZENGE MUCOUS MEM PRN (11:14)
--- NOTE | 2023-02-09 11:31 | P.HPIM ---
History of Present Illness This is a pleasant 67 years old male with past medical history of Diabetes Mellitus, Hypertension. Patient from [facility] where he lives. He was eating his breakfast and he will some reflux feeling. Patient says that actually was just starting to get his breakfast with a toe syncope when he started feeling central chest pain about 2-3/10, nonradiating nonspecific in character that lasted for about half an hour. He says he has similar chest pain now and then. He called his doctor who referred him to the emergency room. Patient was found to be in A. fib with RVR He denies chest pain or dyspnea. Heart rate is 153-155, blood pressure 147 came down to 92/71 after started on Cardizem drip. mild anemia 12.7 hemoglobin, platelet count 129 which looks chronic Sodium 136, rest of the impingement upon enzymes were unremarkable. Glucose 149 Troponin is negative troponin 0.016. TSH 2.4 EKG: ATRIAL FIBRILLATION at 146, ztc 349 , no significant st-t changes cxr: borderline heart size, interstitial prominence in part may be technical . no foal infiltrates Review of Systems Review of systems CONSTITUTIONAL: No fever, no malaise, no fatigue. HEENT: No recent visual problems or hearing problems. Denied any sore throat. CARDIOVASCULAR: No orthopnea, PND, no palpitations, no syncope. PULMONARY: No shortness of breath, no cough, no hemoptysis. GASTROINTESTINAL: No diarrhea, no nausea, no vomiting, no abdominal pain. Normoactive bowel sounds. NEUROLOGICAL: No headaches, no weakness, no numbness. HEMATOLOGICAL: Denies any bleeding or petechiae. GENITOURINARY: Denies any burning micturition, frequency, or urgency. MUSCULOSKELETAL/RHEUMATOLOGICAL: Denies any joint pain, swelling, or any muscle pain. ENDOCRINE: Denies any polyuria or polydipsia. Past Medical History Past Medical History: Diabetes Mellitus, Hypertension Additional Past Medical History / Comment(s): stent placement History of Any Multi-Drug Resistant Organisms: None Reported Additional Past Surgical History / Comment(s): carpel tunnel surgery 06/15/22, lap band around 2017 Past Anesthesia/Blood Transfusion Reactions: No Reported Reaction Past Psychological History: No Psychological Hx Reported Smoking Status: Former smoker Past Alcohol Use History: None Reported Past Drug Use History: None Reported - Past Family History Father Family Medical History: Myocardial Infarction ([place]) Medications and Allergies Home Medications Medication Instructions Recorded Confirmed Type Albuterol Sulfate [Ventolin HFA] 2 puff INHALATION RT-Q6H 06/16/22 02/09/23 History Aspirin EC [Ecotrin Low Dose] 81 mg PO DAILY@89906/16/22 02/09/23 History Atorvastatin Calcium [Lipitor] 40 mg PO HS@209906/16/22 02/09/23 History Cholecalciferol [Vitamin D3 (25 25 mcg PO DAILY@89906/16/22 02/09/23 History Mcg = 1000 Iu)] Diclofenac Sodium Gel [Voltaren 2 gm TOPICAL BID PRN 06/16/22 02/09/23 History Gel] Famotidine [Pepcid] 20 mg PO DAILY@59906/16/22 02/09/23 History Furosemide [Lasix] 40 mg PO DAILY@59906/16/22 02/09/23 History Gabapentin 600 mg PO TID@0600,1400,2200 06/16/22 02/09/23 History Insulin Aspart [NovoLOG Flexpen] 10 units SQ TID@0800,1200,1700 06/16/22 02/09/23 History Insulin Glargine,Hum.rec.anlog 25 unit SQ HS@209906/16/22 02/09/23 History [Basaglar Kwikpen U-100] Lactulose 10 gm PO DAILY PRN 06/16/22 02/09/23 History Metoprolol Succinate (ER) [Toprol 12.5 mg PO DAILY@89906/16/22 02/09/23 Hist ory XL] Multivitamins, Thera [Multivitamin 1 tab PO DAILY@89906/16/22 02/09/23 History (formulary)] Rhinocort Aqua Suspension 32mcg/Act 1 spray EA NOSTRIL HS@209906/16/22 02/09/23 History Semaglutide [Ozempic] 0.5 mg SQ WE@89906/16/22 02/09/23 History Tamsulosin HCl [Flomax] 0.4 mg PO HS@209906/16/22 02/09/23 History glipiZIDE [Glucotrol] 5 mg PO DAILY@89906/16/22 02/09/23 History Acetaminophen Tab [Tylenol] 650 mg PO Q6HR PRN tab 07/19/22 02/09/23 Rx guaiFENesin SYRUP 100MG/5ML 200 mg PO TID PRN ml 07/19/22 02/09/23 Rx [Robitussin] Benzocaine/Menthol Lozeng [Cepacol 1 lozenge MUCOUS MEM Q4HR PRN 02/09/23 02/09/23 History lozenge] Calcium Carb-Vit D 500Mg-5Mcg 1 tab PO BID 02/09/23 02/09/23 History [Oscal 500+D 5 Mcg (200 Iu)] Guaifenesin/Dextromethorphan 10 ml PO Q4H PRN 02/09/23 02/09/23 History [Tracie-Tussin Dm 200-20 mg/10 ml] HYDROcodone/APAP 7.5-325MG [[place] 1 tab PO Q4H PRN 02/09/23 02/09/23 History 7.5-325] Sennosides [Senokot] 17.2 mg PO DAILY 02/09/23 02/09/23 History amLODIPine [Norvasc] 10 mg PO HS 02/09/23 02/09/23 History lisinopriL [Zestril] 10 mg PO DAILY 02/09/23 02/09/23 History Allergies Allergy/AdvReac Type Severity Reaction Status Date / Time No Known Allergies Allergy Verified 02/09/23 09:54 Physical Exam Vitals: Vital Signs Temp Pulse Resp BP Pulse Ox 02/09/23 10:08 155 H 20 92/71 96 02/09/23 08:29 98.3 F 153 H 20 147/108 95 Intake and Output 02/08/23 02/09/23 02/09/23 22:59 06:59 14:59 Other: Weight 143.335 kg -GENERAL: The patient is alert and oriented x3, not in any acute distress. Morbidly obese HEENT: Pupils are round and equally reacting to light. EOMI. No scleral icterus. No conjunctival pallor. Normocephalic, atraumatic. No pharyngeal erythema. No thyromegaly. CARDIOVASCULAR: S1 and S2 present. No murmurs, rubs, or gallops. PULMONARY: Chest is clear to auscultation, no wheezing , no crackles. ABDOMEN: Soft, nontender, nondistended, normoactive bowel sounds. No palpable organomegaly. MUSCULOSKELETAL: No joint swelling or deformity. EXTREMITIES: No cyanosis, clubbing, or pedal edema. NEUROLOGICAL: Gross neurological examination did not reveal any focal deficits. SKIN: No rashes. no petechiae. Results CBC & Chem 7: 02/09/23 08:42 02/09/23 08:42 Labs: Abnormal Lab Results - Last 24 Hours (Table) 02/09/23 02/09/23 02/09/23 Range/Units 08:42 08:42 08:42 RBC 3.87 L (4.30-5.90) m/uL Hgb 12.7 L (13.0-17.5) gm/dL Hct 36.9 L (39.0-53.0) % Plt Count 129 L (150-450) k/uL APTT 21.6 L (22.0-30.0) sec Sodium 136 L (137-145) mmol/L BUN 24 H (9-20) mg/dL Glucose 149 H (74-99) mg/dL Assessment and Plan Assessment: New-onset A. fib and RVR Diabetes mellitus Hypertension Chronic mild bicytopenia with thrombocytopenia and anemia. Morbid obesity, BMI 40.6 Plan: Continue with heparin drip Continue with Cardizem drip cardiology consult c/w telemetry d-dimer and Hb A1c Labs and medication were reviewed.. Continue same treatment. Continue with symptomatic treatment. Resume home medication. Monitor labs and vitals. DVT and GI prophylaxis. Further recommendations as per clinical course of the patient DVT prophylaxis: heparin GI Prophylaxis: Pepcid PT/OT: Pending Prognosis is guarded and discussed them problem and management plan with him and he is agreeable. Risks including but not limited to bleeding and explained for him extensively and he is agreeable
[2023-02-09] MEDS: GABAPENTIN 300 MG CAP PO SCH ×2 (13:50→21:31)
--- NOTE | 2023-02-09 15:45 | CT ---
EXAMINATION TYPE: CT chest angio for PE CT DLP: 854.3 mGycm, Automated exposure control for dose reduction was used. DATE OF EXAM: 02/09/2023 3:36 PM COMPARISON: CTA chest 06/19/2022, chest radiograph 02/09/2023. CLINICAL INDICATION:Male, 67 years old with history of elevated d-dimer; elevated d-dimer TECHNIQUE/CONTRAST: CTA scan of the thorax is performed with IV Contrast, patient injected with 100 mL of Isovue 370, pul monary embolism protocol. MIP images are created and reviewed. FINDINGS: Pulmonary Artery: There is no evidence for a central filling defect within the pulmonary vasculature to suggest acute pulmonary embolism. Limited evaluation of the segmental and subsegmental branches se condary to bolus timing. The pulmonary artery is of normal size. Lungs/Pleura: No evidence of focal consolidation, pleural effusion or pneumothorax. Airway: Large airways are patent. Heart: Heart is within normal limits for size.. No pericardial effusion. Moderate coronary arterial c alcifications. Vasculature: No evidence of aortic aneurysm. Atherosclerotic calcification of the aorta and its branc hes. Mediastinum: No gross evidence of adenopathy. Musculoskeletal: Moderate degenerative disc disease changes are present throughout the thoracolumbar spine. No acute osseous abnormality. Soft Tissues: Subcentimeter likely sebaceous cyst within the superficial soft tissues of the left upp er chest. Lower neck: No significant findings. Upper Abdomen: Gastric lap band identified. Circumferential wall thickening of the distal esophagus. IMPRESSION: 1. No evidence of central pulmonary embolism. Limited evaluation of the segmental and subsegmental br anches secondary to motion artifact. 2. Circumferential wall thickening of the distal esophagus with gastric lap band identified. Etiologi es include GERD/esophagitis.
[2023-02-09] MEDS: ALBUTEROL NEBULIZED 2.5 MG/3 ML INHALATION SCH ×2 (16:07→20:26)
[2023-02-09] MEDS: HYDROcodone/APAP 7.5-325MG 1 EACH TAB PO PRN (17:51)
[2023-02-09] MEDS ORDERED: ALBUTEROL NEBULIZED 2.5 MG/3 ML INHALATION PRN (20:41)
[2023-02-09] MEDS: TAMSULOSIN 0.4 MG CAP.ER.24H PO SCH (21:32)
[2023-02-09] MEDS: ATORVASTATIN 40 MG TAB PO SCH (21:32)
[2023-02-09] MEDS: CALCIUM CARB-VIT D 500 MG-5 MCG TAB PO SCH (21:33)
[2023-02-09] MEDS: FAMOTIDINE 20 MG/2 ML VIAL IV SCH (21:33)
[2023-02-10] MEDS: DILTIAZEM 125 MG in SODIUM CHLORIDE 0.9% 100 ML IV SCH ×3 (00:30→18:29)
[2023-02-10] MEDS: SODIUM CHLORIDE 0.9% 1,000 ML IV SCH ×3 (02:53→18:11)
[2023-02-10] MEDS: GABAPENTIN 300 MG CAP PO SCH ×3 (05:53→21:02)
[2023-02-10 06:58] LABS: African American GFR (CKD) >90 (>60 ml/min/1.73 sqM); Anion Gap 7 mmol/L; Blood Urea Nitrogen 16 mg/dL (9-20); Calcium 8.9 mg/dL (8.4-10.2); Carbon Dioxide 24 mmol/L (22-30); Chloride 107 mmol/L (98-107); Glucose 146 mg/dL (74-99); Non-African American GFR(CKD) 89 (>60 ml/min/1.73 sqM); Potassium 4.6 mmol/L (3.5-5.1); Sodium 138 mmol/L (137-145)
[2023-02-10 06:59] LABS: Basophils % (A) 0 %; Eosinophils # (A) 0.2 k/uL (0-0.7); Eosinophils % (A) 2 %; HCT 37.7 % (39.0-53.0); HGB 12.8 gm/dL (13.0-17.5); Lymphocytes # (A) 1.3 k/uL (1.0-4.8); Lymphocytes % (A) 15 %; MCH 32.5 pg (25.0-35.0); MCV 95.5 fL (80.0-100.0); Mean Platelet Volume 8.3; Monocytes # (A) 0.6 k/uL (0-1.0); Monocytes % (A) 7 %; Neutrophils # (A) 6.6 k/uL (1.3-7.7); Neutrophils % (A) 75 %; Platelet Count 123 k/uL (150-450); RBC 3.95 m/uL (4.30-5.90); RDW 13.7 % (11.5-15.5); WBC 8.9 k/uL (3.8-10.6)
[2023-02-10] MEDS: ALBUTEROL NEBULIZED 2.5 MG/3 ML INHALATION SCH ×4 (08:20→21:58)
[2023-02-10] MEDS: CALCIUM CARB-VIT D 500 MG-5 MCG TAB PO SCH ×2 (08:28→21:01)
[2023-02-10] MEDS: CHOLECALCIFEROL 25 MCG (1000 IU) TABLET PO SCH (08:28)
[2023-02-10] MEDS: HYDROcodone/APAP 7.5-325MG 1 EACH TAB PO PRN (08:28)
[2023-02-10] MEDS: FAMOTIDINE 20 MG/2 ML VIAL IV SCH ×2 (08:29→21:01)
[2023-02-10 08:33] LABS: Glucose,Whole Blood 179 mg/dL (70-110)
[2023-02-10] MEDS ORDERED: METOPROLOL TARTRATE 25 MG TAB PO SCH (09:00)
[2023-02-10] MEDS ORDERED: METOPROLOL TARTRATE 25 MG TAB PO STA (09:05)
[2023-02-10] MEDS: APIXABAN 5 MG TAB PO SCH ×2 (10:42→21:01)
--- NOTE | 2023-02-10 13:20 | P.CRDCN ---
History of Present Illness Consult date: 02/10/23 Consult reason: atrial fibrillation (RVR) History of present illness: History of present illness: This is a 67-year-old male patient of Dr. Mehran Leary with past medical history of coronary artery disease with previous angioplasty many years ago, hypertension, dyslipidemia, diabetes. [facility] the past 1-1/2 years is nonambulatory. Patient apparently had complaints of heartburn at the [facility] was found to have elevated heart rate and was sent into the hospital for further evaluation. We have been asked to evaluate the patient for new atrial fibrillation with RVR. Patient is seen today on the cardiac stepdown unit. He states he feels terrible. He denies having any chest pain, lightheadedness or dizziness. Patient has been started on a Cardizem drip currently at 15 mg/h and heart rate is running 140. EKG atrial fibrillation at 146 bpm Chest x-ray: Borderline heart size. Interstitial prominence may be technical. No focal infiltrate. WBC 8.9, hemoglobin 12.8. Platelet count 123. Electrolytes normal. Creatinine 0.88. Blood sugar 146. Troponin negative 1. TSH 2.44. D-dimer 1.69. Chest CTA no pulmonary embolism. Home cardiac medications: Amlodipine 10 mg at bedtime, aspirin 81 mg daily, a torvastatin 40 mg at bedtime, Lasix 40 mg daily, lisinopril 10 mg daily, Toprol- XL 12.5 mg daily. Echocardiogram obtained in the office on 08/26/2022 revealed EF of 50%. Moderate concentric left ventricular hypertrophy. Trace mitral regurgitation. Trace to mild tricuspid regurgitation. Normal PAS P. Lexiscan Cardilate stress test performed 2016 EKG criteria unremarkable. EF 50% with inferior wall hypokinesia Review Of Systems: At the time of my evaluation: Constitutional: No fever, no chills. No weakness, reports fatigue no lethargy. EENT: No headache. No dizziness. Lungs: No shortness of breath, cough, no sputum production. No wheezing. Cardiovascular: No chest pain, no lower extremity edema. No palpitations. No paroxysmal nocturnal dyspnea. No orthopnea. No lightheadedness or dizziness. No syncopal episodes. Abdominal: No abdominal pain. No nausea, vomiting. No diarrhea. No constipation. No bloody or tarry stools. Genitourinary: No dysuria.. No urinary retention. Musculoskeletal: No myalgias. No muscle weakness, no frequent falls. No back pain. No neck pain. Integumentary: No wounds. No rash. No unusual bruising. Neurologic: No aphasia. No facial droop. No change in mentation. No head injury. No headache. Physical examination: Gen: This is a 67-year-old male resting in bed and appears to be comfortable and in no acute distress. VS: reviewed HEENT: Head is atraumatic, normocephalic. Pupils equal, round. Sclerae is anicteric. NECK: Supple. No JVD. . LUNGS: Clear to auscultation. No wheezes or rhonchi. No intercostal retractions. HEART: Irregular rate and rhythm. No murmur. EXTREMITIES: No pedal edema. No calf tenderness. NEUROLOGICAL: Patient is awake, alert and oriented. Assessment: New-onset paroxysmal atrial fibrillation with RVR. Coronary artery disease with prior angioplasty. Hypertension. Dyslipidemia. Diabetes Plan: Continue the patient's home cardiac medications Discontinue heparin drip and start patient on eliquis 5 mg twice daily Continue Cardizem drip Change beta gracy to Lopressor 50 mg twice daily No need to repeat echocardiogram as this was done in August Further recommendations to follow based upon clinical course Thank you kindly for this consultation. Nurse practitioner note has been reviewed, I agree with documented findings and plan of care. Patient was seen and examined. Past Medical History Past Medical History: Diabetes Mellitus, Hypertension Additional Past Medical History / Comment(s): stent placement History of Any Multi-Drug Resistant Organisms: None Reported Additional Past Surgical History / Comment(s): carpel tunnel surgery 06/15/22, lap band around 2017 Past Anesthesia/Blood Transfusion Reactions: No Reported Reaction Past Psychological History: No Psychological Hx Reported Smoking Status: Former smoker Past Alcohol Use History: None Reported Past Drug Use History: None Reported - Past Family History Father Family Medical History: Myocardial Infarction ([place]) Medications and Allergies Home Medications Medication Instructions Recorded Confirmed Type Albuterol Sulfate [Ventolin HFA] 2 puff INHALATION RT-Q6H 06/16/22 02/09/23 History Aspirin EC [Ecotrin Low Dose] 81 mg PO DAILY@0900 06/16/22 02/09/23 History Atorvastatin Calcium [Lipitor] 40 mg PO HS@2100 06/16/2223 History Cholecalciferol [Vitamin D3 (25 25 mcg PO DAILY@89906/16/22 02/09/23 History Mcg = 1000 Iu)] Diclofenac Sodium Gel [Voltaren 1% 2 gm TOPICAL BID PRN 06/16/22 02/09/23 History Gel] Famotidine [Pepcid] 20 mg PO DAILY@59906/16/22 02/09/23 History Furosemide [Lasix] 40 mg PO DAILY@59906/16/22 02/09/23 History Gabapentin 600 mg PO TID@0600,1400,2200 06/16/22 02/09/23 History Insulin Aspart [NovoLOG Flexpen] 10 units SQ TID@0800,1200,1700 06/16/22 02/09/23 History Insulin Glargine,Hum.rec.anlog 25 unit SQ HS@209906/16/22 02/09/23 History [Basaglar Kwikpen U-100] Lactulose 10 gm PO DAILY PRN 06/16/22 02/09/23 History Metoprolol Succinate (ER) [Toprol 12.5 mg PO DAILY@89906/16/22 02/09/23 History XL] Multivitamins, Thera [Multivitamin 1 tab PO DAILY@89906/16/22 02/09/23 History (formulary)] Rhinocort Aqua Suspension 32mcg/Act 1 spray EA NOSTRIL HS@209906/16/22 02/09/23 History Semaglutide [Ozempic] 0.5 mg SQ WE@89906/16/22 02/09/23 History Tamsulosin HCl [Flomax] 0.4 mg PO HS@209906/16/22 02/09/23 History glipiZIDE [Glucotrol] 5 mg PO DAILY@89906/16/22 02/09/23 History Acetaminophen Tab [Tylenol] 650 mg PO Q6HR PRN tab 07/19/22 02/09/23 Rx guaiFENesin SYRUP 100MG/5ML 200 mg PO TID PRN ml 07/19/22 02/09/23 Rx [Robitussin] Benzocaine/Menthol Lozeng [Cepacol 1 lozenge MUCOUS MEM Q4HR PRN 02/09/23 02/09/23 History lozenge] Calcium Carb-Vit D 500Mg-5Mcg 1 tab PO BID 02/09/23 02/09/23 History [Oscal 500+D 5 Mcg (200 Iu)] Guaifenesin/Dextromethorphan 10 ml PO Q4H PRN 02/09/23 02/09/23 History [Tracie-Tussin Dm 200-20 mg/10 ml] HYDROcodone/APAP 7.5-325MG [Craig 1 tab PO Q4H PRN 02/09/23 02/09/23 History 7.5-325] Sennosides [Senokot] 17.2 mg PO DAILY 02/09/23 02/09/23 History amLODIPine [Norvasc] 10 mg PO HS 02/09/23 02/09/23 History lisinopriL [Zestril] 10 mg PO DAILY 02/09/23 02/09/23 History Allergies Allergy/AdvReac Type Severity Reaction Status Date / Time No Known Allergies Allergy Verified 02/09/23 09:54 Physical Exam Vitals: Vital Signs Temp Pulse Pulse Resp BP BP Pulse Ox 02/10/23 08:00 98.0 F 164 H 17 143/73 97 02/10/23 06:00 154 H 16 124/87 96 02/10/23 05:30 176 H 18 101/53 96 02/10/23 05:00 165 H 17 199/179 95 02/10/23 04:30 168 H 18 119/79 98 02/10/23 04:00 172 H 18 126/83 96 02/10/23 03:30 128 H 19 136/71 96 02/10/23 02:30 154 H 17 124/88 97 02/10/23 02:00 151 H 18 112/64 96 02/10/23 01:30 19 116/87 97 02/10/23 01:00 17 100/85 97 02/10/23 00:30 154 H 18 97 02/10/23 00:05 18 90/70 96 02/09/23 23:47 124 H 18 101/70 96 02/09/23 23:30 151 H 15 106/53 96 02/09/23 23:00 138 H 16 116/70 96 02/09/23 22:30 141 H 16 101/72 97 02/09/23 22:00 161 H 17 118/75 95 02/09/23 21:30 131 H 14 122/77 96 02/09/23 21:00 121 H 16 113/96 97 02/09/23 20:34 123 H 02/09/23 20:30 98 15 103/50 95 02/09/23 20:26 97 02/09/23 20:00 101 H 16 106/69 95 02/09/23 19:30 158 H 17 102/61 97 02/09/23 18:51 101 H 18 121/84 97 02/09/23 18:30 168 H 18 139/48 97 02/09/23 17:50 120 H 18 109/77 97 02/09/23 17:13 141 H 18 110/71 95 02/09/23 16:24 158 H 18 135/95 96 02/09/23 16:00 154 H 18 113/65 98 02/09/23 15:00 135 H 18 120/76 98 02/09/23 14:00 140 H 18 116/85 97 02/09/23 13:39 125 H 18 110/95 02/09/23 13:00 128 H 18 120/76 98 02/09/23 12:57 147 H 18 112/75 98 02/09/23 12:19 156 H 92/80 93 L 02/09/23 11:00 142 H 18 107/69 98 02/09/23 10:08 155 H 20 92/71 96 Intake and Output 02/09/23 02/10/23 02/10/23 22:59 06:59 14:59 Intake Total 132.167 48.667 Balance 132.167 48.667 Intake: Intake, IV Titration 132.167 48.667 Amount Diltiazem 125 mg In 71.000 48.667 Sodium Chloride 0.9% 100 ml @ Per Protocol IV .Q0M [facility] Rx#:[id number] Heparin Sod,Pork in 0.45% 61.167 NaCl 25,000 unit In 0.45 % NaCl 1 250ml.bag @ 6. 9767 UNITS/KG/HR 10 mls/ hr IV .Q24H [facility] Rx#: [id number] Results 02/10/23 06:09 02/10/23 06:09 Cardiac Enzymes 09/28/23 09/28/23 Range/Units 08:42 08:42 AST 28 (17-59) U/L Troponin I 0.016 (0.000-0.034) ng/mL Coagulation 02/09/23 02/09/23 02/09/23 Range/Units 08:42 15:29 22:24 PT 10.6 (9.0-12.0) sec APTT 21.6 L 35.9 H 44.2 H (22.0-30.0) sec CBC 02/09/23 02/10/23 Range/Units 08:42 06:09 WBC 8.0 8.9 (3.8-10.6) k/uL RBC 3.87 L 3.95 L (4.30-5.90) m/uL Hgb 12.7 L 12.8 L (13.0-17.5) gm/dL Hct 36.9 L 37.7 L (39.0-53.0) % Plt Count 129 L 123 L (150-450) k/uL Comprehensive Metabolic Panel 02/09/23 02/10/23 Range/Units 08:42 06:09 Sodium 136 L 138 (137-145) mmol/L Potassium 5.1 4.6 (3.5-5.1) mmol/L Chloride 103 107 (98-107) mmol/L Carbon Dioxide 24 24 (22-30) mmol/L BUN 24 H 16 (9-20) mg/dL Creatinine 0.95 0.88 (0.66-1.25) mg/dL Glucose 149 H 146 H (74-99) mg/dL Calcium 8.7 8.9 (8.4-10.2) mg/dL AST 28 (17-59) U/L ALT 19 (4-49) U/L Alkaline Phosphatase 48 (38-126) U/L Total Protein 7.0 (6.3-8.2) g/dL Albumin 4.0 (3.5-5.0) g/dL Current Medications Generic Name Dose Route Start Last Admin Trade Name Freq PRN Reason Stop Dose Admin Hydrocodone Bitart/Acetaminophen 1 each 02/09/23 11:14 02/10/23 08:28 Hydrocodone/Apap 7.5-325mg 1 Each Tab PO 1 each Q6H PRN Administration Pain Albuterol Sulfate 2.5 mg 02/10/23 08:00 02/10/23 08:24 Albuterol Nebulized 2.5 Mg/3 Ml INHALATION Not Given RT-TID [facility] Albuterol Sulfate 2.5 mg 02/09/23 20:41 Albuterol Nebulized 2.5 Mg/3 Ml INHALATION RT-Q2H PRN Shortness Of Breath Or Wheezing Atorvastatin Calcium 40 mg 02/09/23 21:00 02/09/23 21:32 Atorvastatin 40 Mg Tab PO 40 mg HS@2100 [facility] Administration Benzocaine/Menthol 1 each 02/09/23 11:14 Benzocaine/Menthol Lozeng 1 Each Lozenge MUCOUS MEM Q4HR PRN Cough Calcium Carbonate 1 each 02/09/23 21:00 02/10/23 08:28 Calcium Carb-Vit D 500 Mg-5 Mcg Tab PO 1 each BID [facility] Administration Cholecalciferol 25 mcg 02/10/23 09:00 02/10/23 08:28 Cholecalciferol 25 Mcg (1000 Iu) Tablet PO 25 mcg DAILY@0900 [facility] Administration Famotidine 20 mg 02/09/23 21:00 02/10/23 08:29 Famotidine 20 Mg/2 Ml Vial IV 20 mg Q12HR [facility] Administration Gabapentin 600 mg 02/09/23 14:00 02/10/23 05:53 Gabapentin 300 Mg Cap PO 600 mg TID@0600,1400,2200 [facility] Administration Guaifenesin 200 mg 02/09/23 11:14 Guaifenesin Syrup 100mg/5ml 200 Mg/10 Ml Cup PO TID PRN Cough Heparin Sodium (Porcine) 0 unit 02/09/23 09:44 02/09/23 16:26 Heparin Sodium 1,000 Un/Ml (10ml Vl) IV 3,575 unit PER PROTOCOL PRN Administration Low PTT Protocol Diltiazem HCl 125 mg/ Sodium 125 mls @ 0 mls/hr 02/09/23 09:45 02/10/23 00:30 Chloride IV 15 mls/hr .Q0M [facility] 15 mls/hr Administration Protocol Per Protocol Heparin Sodium/Sodium Chloride 250 mls @ 10 mls/hr 02/09/23 09:45 02/09/23 16 :32 25,000 unit/ Sodium Chloride IV 8.97 units/kg/hr .Q24H [facility] 12.857 mls/hr Titration Protocol 6.9767 UNITS/KG/HR Sodium Chloride 1,000 mls @ 130 mls/hr 02/09/23 11:00 02/10/23 02:53 Saline 0.9% IV 130 mls/hr .Q7H42M [facility] Administration Metoprolol Tartrate 25 mg 02/10/23 09:00 02/10/23 08:28 Metoprolol Tartrate 25 Mg Tab PO 25 mg BID [facility] Administration Naloxone HCl 0.2 mg 02/09/23 10:50 Naloxone 0.4 Mg/Ml 1 Ml Vial IV Q2M PRN Opioid Reversal Tamsulosin HCl 0.4 mg 02/09/23 21:00 02/09/23 21:32 Tamsulosin 0.4 Mg Cap.Er.24h PO 0.4 mg HS@2100 [facility] Administration Intake and Output 02/09/23 02/10/23 02/10/23 22:59 06:59 14:59 Intake Total 132.167 48.667 Balance 132.167 48.667 Intake: Intake, IV Titration 132.167 48.667 Amount Diltiazem 125 mg In 71.000 48.667 Sodium Chloride 0.9% 100 ml @ Per Protocol IV .Q0M [facility] Rx#:[id number] Heparin Sod,Pork in 0.45% 61.167 NaCl 25,000 unit In 0.45 % NaCl 1 250ml.bag @ 6. 9767 UNITS/KG/HR 10 mls/ hr IV .Q24H [facility] Rx#: [id number] 02/10/23 06:09 02/10/23 06:09
--- NOTE | 2023-02-10 15:26 | P.PN ---
Subjective Progress Note Date: 02/10/23 67 years old male with past medical history of Diabetes Mellitus, Hypertension. Patient from [facility] where he lives. He was eating his breakfast and he will some reflux feeling. Patient says that actually was just starting to get his breakfast with a toe syncope when he started feeling central chest pain about 2-3/10, nonradiating nonspecific in character that lasted for about half an hour. He says he has similar chest pain now and then. He called his doctor who referred him to the emergency room. Patient was found to be in A. fib with RVR He denies chest pain or dyspnea. Heart rate is 153-155, blood pressure 147 came down to 92/71 after started on Cardizem drip. mild anemia 12.7 hemoglobin, platelet count 129 which looks chronic Sodium 136, rest of the impingement upon enzymes were unremarkable. Glucose 149 Troponin is negative troponin 0.016. TSH 2.4 EKG: ATRIAL FIBRILLATION at 146, ztc 349 , no significant st-t changes cxr: borderline heart size, interstitial prominence in part may be technical . no foal infiltrates Objective - Vital Signs Vital signs: Vital Signs Temp 98.0 F 02/10/23 08:00 Pulse 164 H 02/10/23 08:00 Resp 17 02/10/23 08:00 BP 143/73 02/10/23 08:00 Pulse Ox 97 02/10/23 08:00 FiO2 Intake & Output 02/09/23 02/10/23 02/10/23 18:59 06:59 18:59 Intake Total 111.917 68.917 125 Balance 111.917 68.917 125 Weight 143.335 kg Intake: Intake, IV Titration 111.917 68.917 125 Amount Diltiazem 125 mg In 50.750 68.917 125 Sodium Chloride 0.9% 100 ml @ Per Protocol IV .Q0M [facility] Rx#:[id number] Heparin Sod,Pork in 0.45% 61.167 NaCl 25,000 unit In 0.45 % NaCl 1 250ml.bag @ 6. 9767 UNITS/KG/HR 10 mls/ hr IV .Q24H [facility] Rx#: [id number] - Exam GENERAL: The patient is confused , no follow commands, not answering question,, not in any acute distress. Well developed, well nourished. HEENT: Pupils are round and equally reacting to light. EOMI. No scleral icterus. No conjunctival pallor. Normocephalic, atraumatic. No pharyngeal erythema. No thyromegaly. CARDIOVASCULAR: S1 and S2 present. No murmurs, rubs, or gallops. PULMONARY: Chest is clear to auscultation, no wheezing , no crackles. ABDOMEN: Soft, nontender, nondistended, normoactive bowel sounds. No palpable organomegaly. MUSCULOSKELETAL: No joint swelling or deformity. EXTREMITIES: No cyanosis, clubbing, or pedal edema. -NEUROLOGICAL: right hemiparensis with increased tone, exam is limited by the pt condition. SKIN: No rashes. no petechiae. - Labs CBC & Chem 7: 02/10/23 06:09 02/10/23 06:09 Labs: Abnormal Lab Results - Last 24 Hours (Table) 02/09/23 02/09/23 02/09/23 Range/Units 08:42 15:29 22:24 RBC (4.30-5.90) m/uL Hgb (13.0-17.5) gm/dL Hct (39.0-53.0) % Plt Count (150-450) k/uL APTT 35.9 H 44.2 H (22.0-30.0) sec D-Dimer 1.69 H (<0.60) mg/L FEU Glucose (74-99) mg/dL POC Glucose (mg/dL) (70-110) mg/dL 02/10/23 02/10/23 02/10/23 Range/Units 06:09 06:09 08:30 RBC 3.95 L (4.30-5.90) m/uL Hgb 12.8 L (13.0-17.5) gm/dL Hct 37.7 L (39.0-53.0) % Plt Count 123 L (150-450) k/uL APTT (22.0-30.0) sec D-Dimer (<0.60) mg/L FEU Glucose 146 H (74-99) mg/dL POC Glucose (mg/dL) 179 H (70-110) mg/dL Assessment and Plan Assessment: New-onset A. fib and RVR Diabetes mellitus Hypertension Chronic mild bicytopenia with thrombocytopenia and anemia. Morbid obesity, BMI 40.6 Plan: Continue with heparin drip Continue with Cardizem drip cardiology consult c/w telemetry d-dimer and Hb A1c Labs and medication were reviewed.. Continue same treatment. Continue with symptomatic treatment. Resume home medication. Monitor labs and vitals. DVT and GI prophylaxis. Further recommendations as per clinical course of the patient DVT prophylaxis: heparin GI Prophylaxis: Pepcid PT/OT: Pending Prognosis is guarded and discussed them problem and management plan with him and he is agreeable. Risks including but not limited to bleeding and explained for him extensively and he is agreeable
[2023-02-10] MEDS: TAMSULOSIN 0.4 MG CAP.ER.24H PO SCH (21:01)
[2023-02-10] MEDS: ATORVASTATIN 40 MG TAB PO SCH (21:02)
[2023-02-10] MEDS: METOPROLOL TARTRATE 50 MG TAB PO SCH (21:02)
[2023-02-11 00:09] LABS: Prothrombin Time 10.7 sec (9.0-12.0)
[2023-02-11] MEDS: SODIUM CHLORIDE 0.9% 1,000 ML IV SCH ×3 (02:31→18:23)
[2023-02-11] MEDS: DILTIAZEM 125 MG in SODIUM CHLORIDE 0.9% 100 ML IV SCH ×3 (02:32→20:47)
[2023-02-11] MEDS: GABAPENTIN 300 MG CAP PO SCH ×3 (06:30→20:47)
[2023-02-11] MEDS: ALBUTEROL NEBULIZED 2.5 MG/3 ML INHALATION SCH ×3 (08:04→21:22)
[2023-02-11] MEDS: CALCIUM CARB-VIT D 500 MG-5 MCG TAB PO SCH ×2 (08:24→20:47)
[2023-02-11] MEDS: CHOLECALCIFEROL 25 MCG (1000 IU) TABLET PO SCH (08:24)
[2023-02-11] MEDS: FAMOTIDINE 20 MG/2 ML VIAL IV SCH ×2 (08:24→20:46)
[2023-02-11] MEDS: APIXABAN 5 MG TAB PO SCH ×2 (08:24→20:47)
[2023-02-11] MEDS: METOPROLOL TARTRATE 50 MG TAB PO SCH ×2 (08:24→20:47)
[2023-02-11] MEDS ORDERED: METOPROLOL TARTRATE 50 MG TAB PO SCH ×2 (11:00→21:00)
[2023-02-11] MEDS ORDERED: METOPROLOL TARTRATE 50 MG TAB PO STA (11:05)
--- NOTE | 2023-02-11 12:55 | P.PN ---
Subjective Progress Note Date: 02/11/23 This is Ford Mcmullen NP, I'm dictating on behalf of Dr. Hoyos's H&P and A&P. Patient was interviewed and examined. Patient is a pleasant 59-year-old male who presented to the hospital with complaints of heartburn and an elevated heart rate, and was found to be in atrial fibrillation with rapid ventricular response, new onset. Patient today reports that he feels okay. Heart rates are appearing to be improved, and the patient does demonstrate atrial fibrillation, but with controlled ventricular re sponse on telemetry. Patient was started on Lopressor 50 mg twice a day yesterday. Patient remains on a Cardizem drip at this time. He otherwise denies chest pain, shortness of breath, heart palpitations. GENERAL: Well-appearing, well-nourished and in no acute distress. NECK: Supple without JVD or thyromegaly. LUNGS: Breath sounds clear to auscultation bilaterally. Respiration equal and unlabored. No wheezes, rales or rhonchi. HEART: Regular rate and irregular rhythm without murmurs, rubs or gallops. S1 and S2 heard. EXTREMITIES: Normal range of motion, no edema. No clubbing or cyanosis. Peripheral pulses intact and strong. VITALS: Temp 98.2, pulse 78, respirations 16, blood pressure 93/63, O2 saturation 99% on room air TELEMETRY: Atrial fibrillation with controlled ventricular response LABS: No new laboratory values since yesterday IMPRESSION: 1. New onset paroxysmal atrial fibrillation with RVR 2. Coronary artery disease with prior angioplasty 3. Hypertension 4. Dyslipidemia 5. Diabetes PLAN: Increase metoprolol to 100 mg twice a day. Decrease Cardizem drip, with plan to fully discontinue if heart rate is controlled with metoprolol. Further recommendations based on patient's clinical course. Objective - Vital Signs Vital signs: Vital Signs Temp 98.2 F 02/11/23 11:12 Pulse 76 02/11/23 12:04 Resp 16 02/11/23 11:12 BP 93/63 02/11/23 11:12 Pulse Ox 99 02/11/23 11:12 FiO2 Intake & Output 02/10/23 02/11/23 02/11/23 18:59 06:59 18:59 Intake Total 1410 120.75 245 Output Total 950 Balance 1410 -829.25 245 Weight 136.5 kg Intake: Intake, IV Titration 250 120.75 125 Amount Diltiazem 125 mg In 250 120.75 125 Sodium Chloride 0.9% 100 ml @ Per Protocol IV .Q0M [facility] Rx#:[id number] Oral 1160 120 Output: Urine 950 Other: Voiding Method External Catheter External Catheter - Labs CBC & Chem 7: 02/10/23 06:09 02/10/23 06:09
--- NOTE | 2023-02-11 20:35 | P.PN ---
Subjective Progress Note Date: 02/11/23 67 years old male with past medical history of Diabetes Mellitus, Hypertension. Patient from [facility] where he lives. He was eating his breakfast and he will some reflux feeling. Patient says that actually was just starting to get his breakfast with a toe syncope when he started feeling central chest pain about 2-3/10, nonradiating nonspecific in character that lasted for about half an hour. He says he has similar chest pain now and then. He called his doctor who referred him to the emergency room. Patient was found to be in A. fib with RVR He denies chest pain or dyspnea. Heart rate is 153-155, blood pressure 147 came down to 92/71 after started on Cardizem drip. mild anemia 12.7 hemoglobin, platelet count 129 which looks chronic Sodium 136, rest of the impingement upon enzymes were unremarkable. Glucose 149 Troponin is negative troponin 0.016. TSH 2.4 EKG: ATRIAL FIBRILLATION at 146, ztc 349 , no significant st-t changes cxr: borderline heart size, interstitial prominence in part may be technical . no foal infiltrates 02/11/2023 Patient today reports that he feels okay. Heart rates are appearing to be improved, and the patient does demonstrate atrial fibrillation, but with controlled ventricular response on telemetry. Patient was started on Lopressor 50 mg twice a day yesterday. Patient remains on a Cardizem drip at this time. He otherwise denies chest pain, shortness of breath, heart palpitations. Cardiology on board; recommendations appreciated Increase metoprolol to 100 mg twice a day. Decrease Cardizem drip, with plan to fully discontinue if heart rate is controlled with metoprolol. -- CT of the chest completed for elevated d-dimer has been negative for PE Objective - Vital Signs Vital signs: Vital Signs Temp 98.5 F 02/11/23 04:00 Pulse 92 02/11/23 08:16 Resp 17 02/11/23 04:00 BP 108/59 02/11/23 04:00 Pulse Ox 97 02/11/23 04:00 FiO2 Intake & Output 02/10/23 02/11/23 02/11/23 18:59 06:59 18:59 Intake Total 1410 120.75 120 Output Total 950 Balance 1410 -829.25 120 Weight 136.5 kg Intake: Intake, IV Titration 250 120.75 Amount Diltiazem 125 mg In 250 120.75 Sodium Chloride 0.9% 100 ml @ Per Protocol IV .Q0M [facility] Rx#:[id number] Oral 1160 120 Output: Urine 950 Other: Voiding Method External Catheter - Exam GENERAL: The patient is confused , no follow commands, not answering question,, not in any acute distress. Well developed, well nourished. HEENT: Pupils are round and equally reacting to light. EOMI. No scleral icterus. No conjunctival pallor. Normocephalic, atraumatic. No pharyngeal erythema. No thyromegaly. CARDIOVASCULAR: S1 and S2 present. No murmurs, rubs, or gallops. PULMONARY: Chest is clear to auscultation, no wheezing , no crackles. ABDOMEN: Soft, nontender, nondistended, normoactive bowel sounds. No palpable organomegaly. MUSCULOSKELETAL: No joint swelling or deformity. EXTREMITIES: No cyanosis, clubbing, or pedal edema. -NEUROLOGICAL: right hemiparensis with increased tone, exam is limited by the pt condition. SKIN: No rashes. no petechiae. - Labs CBC & Chem 7: 02/10/23 06:09 02/10/23 06:09 Assessment and Plan Assessment: New-onset A. fib and RVR Diabetes mellitus Hypertension Chronic mild bicytopenia with thrombocytopenia and anemia. Morbid obesity, BMI 40.6 Plan: Continue with heparin drip Continue with Cardizem drip cardiology consult c/w telemetry d-dimer and Hb A1c Labs and medication were reviewed.. Continue same treatment. Continue with s ymptomatic treatment. Resume home medication. Monitor labs and vitals. DVT and GI prophylaxis. Further recommendations as per clinical course of the patient DVT prophylaxis: heparin GI Prophylaxis: Pepcid PT/OT: Pending Prognosis is guarded and discussed them problem and management plan with him and he is agreeable. Risks including but not limited to bleeding and explained for him extensively and he is agreeable
[2023-02-11] MEDS: TAMSULOSIN 0.4 MG CAP.ER.24H PO SCH (20:47)
[2023-02-11] MEDS: ATORVASTATIN 40 MG TAB PO SCH (20:47)
[2023-02-12] MEDS: GABAPENTIN 300 MG CAP PO SCH ×3 (06:06→20:13)
[2023-02-12] MEDS: SODIUM CHLORIDE 0.9% 1,000 ML IV SCH ×3 (08:02→16:09)
[2023-02-12] MEDS: APIXABAN 5 MG TAB PO SCH ×2 (08:09→20:14)
[2023-02-12] MEDS: CALCIUM CARB-VIT D 500 MG-5 MCG TAB PO SCH ×2 (08:09→20:13)
[2023-02-12] MEDS: CHOLECALCIFEROL 25 MCG (1000 IU) TABLET PO SCH (08:09)
[2023-02-12] MEDS: METOPROLOL TARTRATE 50 MG TAB PO SCH ×2 (08:09→17:23)
[2023-02-12] MEDS: FAMOTIDINE 20 MG/2 ML VIAL IV SCH ×2 (08:09→20:14)
[2023-02-12] MEDS: ALBUTEROL NEBULIZED 2.5 MG/3 ML INHALATION SCH ×3 (09:17→20:31)
[2023-02-12] MEDS ORDERED: METOPROLOL TARTRATE 50 MG TAB PO SCH (11:00)
--- NOTE | 2023-02-12 14:37 | P.PN ---
Subjective Progress Note Date: 02/12/23 This is Ford Mcmullen NP, I'm dictating on behalf of Dr. Hoyos's H&P and A&P. Patient was interviewed and examined. Patient is a pleasant 59-year-old male who presented to the hospital with complaints of heartburn and an elevated heart rate, and was found to be in atrial fibrillation with rapid ventricular response, new onset. Patient reports that he continues to feel okay today. Patient has improved heart rates, as well as blood pressure. Patient remains in A. fib with controlled ventricular re sponse on telemetry. He denies chest pain, shortness of breath, heart palpitations. GENERAL: Well-appearing, well-nourished and in no acute distress. NECK: Supple without JVD or thyromegaly. LUNGS: Breath sounds clear to auscultation bilaterally. Respiration equal and unlabored. No wheezes, rales or rhonchi. HEART: Regular rate and irregular rhythm without murmurs, rubs or gallops. S1 and S2 heard. EXTREMITIES: Normal range of motion, no edema. No clubbing or cyanosis. Peripheral pulses intact and strong. VITALS: Temp 97.8, pulse 80, respirations 16, blood pressure 111/62, O2 saturation 98% on room air TELEMETRY: Atrial fibrillation with controlled ventricular response LABS: No new laboratory values since 02/10/2023 IMPRESSION: 1. New onset paroxysmal atrial fibrillation with RVR 2. Coronary artery disease with prior angioplasty 3. Hypertension 4. Dyslipidemia 5. Diabetes PLAN: Discontinue IV Cardizem. Increase metoprolol to 151 g twice a day. Further regulations based on patient's clinical course. Objective - Vital Signs Vital signs: Vital Signs Temp 98.4 F 02/12/23 12:00 Pulse 88 02/12/23 12:00 Resp 14 02/12/23 12:00 BP 109/56 02/12/23 12:00 Pulse Ox 96 02/12/23 12:00 FiO2 Intake & Output 02/11/23 02/12/23 02/12/23 18:59 06:59 18:59 Intake Total 485 96.5 458 Output Total 900 1000 850 Balance -415 -903.5 -392 Weight 128 kg Intake: Intake, IV Titration 125 96.5 Amount Diltiazem 125 mg In 125 96.5 Sodium Chloride 0.9% 100 ml @ Per Protocol IV .Q0M [facility] Rx#:[id number] Oral 360 458 Output: Urine 900 1000 850 Other: Voiding Method External Catheter External Catheter External Catheter - Labs CBC & Chem 7: 02/10/23 06:09 02/10/23 06:09
--- NOTE | 2023-02-12 17:12 | P.PN ---
Subjective Progress Note Date: 02/12/23 67 years old male with past medical history of Diabetes Mellitus, Hypertension. Patient from [facility] where he lives. He was eating his breakfast and he will some reflux feeling. Patient says that actually was just starting to get his breakfast with a toe syncope when he started feeling central chest pain about 2-3/10, nonradiating nonspecific in character that lasted for about half an hour. He says he has similar chest pain now and then. He called his doctor who referred him to the emergency room. Patient was found to be in A. fib with RVR He denies chest pain or dyspnea. Heart rate is 153-155, blood pressure 147 came down to 92/71 after started on Cardizem drip. mild anemia 12.7 hemoglobin, platelet count 129 which looks chronic Sodium 136, rest of the impingement upon enzymes were unremarkable. Glucose 149 Troponin is negative troponin 0.016. TSH 2.4 EKG: ATRIAL FIBRILLATION at 146, ztc 349 , no significant st-t changes cxr: borderline heart size, interstitial prominence in part may be technical . no foal infiltrates 02/11/2023 Patient today reports that he feels okay. Heart rates are appearing to be improved, and the patient does demonstrate atrial fibrillation, but with controlled ventricular response on telemetry. Patient was started on Lopressor 50 mg twice a day yesterday. Patient remains on a Cardizem drip at this time. He otherwise denies chest pain, shortness of breath, heart palpitations. Cardiology on board; recommendations appreciated Increase metoprolol to 100 mg twice a day. Decrease Cardizem drip, with plan to fully discontinue if heart rate is controlled with metoprolol. -- CT of the chest completed for elevated d-dimer has been negative for PE 02/12/2023 Patient is seen and no specific complaints reported Vital signs are reviewed and stable with temperature of 97.8, pulse 80, respirations 16 and blood pressure of 111/62 Patient currently admitted with new onset atrial fibrillation with RVR; has been controlled on Cardizem and metoprolol -- Cardiology recommending to increase metoprolol up to 150 mg twice a day and discontinue IV Cardizem -- Continue with L Valle 5 mg twice a day -- Possible discharge in next 24 hours if remains stable Objective - Vital Signs Vital signs: Vital Signs Temp 98.0 F 02/12/23 04:00 Pulse 60 02/12/23 09:28 Resp 17 02/12/23 04:00 BP 102/62 02/12/23 04:00 Pulse Ox 97 02/12/23 04:00 FiO2 Intake & Output 02/11/23 02/12/23 02/12/23 18:59 06:59 18:59 Intake Total 485 96.5 236 Output Total 900 1000 850 Balance -415 -903.5 -614 Weight 128 kg Intake: Intake, IV Titration 125 96.5 Amount Diltiazem 125 mg In 125 96.5 Sodium Chloride 0.9% 100 ml @ Per Protocol IV .Q0M [facility] Rx#:[id number] Oral 360 236 Output: Urine 900 1000 850 Other: Voiding Method External Catheter External Catheter - Exam GENERAL: The patient is confused , no follow commands, not answering question,, not in any acute distress. Well developed, well nourished. HEENT: Pupils are round and equally reacting to light. EOMI. No scleral icterus. No conjunctival pallor. Normocephalic, atraumatic. No pharyngeal erythema. No thyromegaly. CARDIOVASCULAR: S1 and S2 present. No murmurs, rubs, or gallops. PULMONARY: Chest is clear to auscultation, no wheezing , no crackles. ABDOMEN: Soft, nontender, nondistended, normoactive bowel sounds. No palpable organomegaly. MUSCULOSKELETAL: No joint swelling or deformity. EXTREMITIES: No cyanosis, clubbing, or pedal edema. -NEUROLOGICAL: right hemiparensis with increased tone, exam is limited by the pt condition. SKIN: No rashes. no petechiae. - Labs CBC & Chem 7: 02/10/23 06:09 02/10/23 06:09 Assessment and Plan Assessment: New-onset A. fib and RVR Diabetes mellitus Hypertension Chronic mild bicytopenia with thrombocytopenia and anemia. Morbid obesity, BMI 40.6 Plan: Continue with heparin drip Continue with Cardizem drip cardiology consult c/w telemetry d-dimer and Hb A1c Labs and medication were reviewed.. Continue same treatment. Continue with symptomatic treatment. Resume home medication. Monitor labs and vitals. DVT and GI prophylaxis. Further recommendations as per clinical course of the patient DVT prophylaxis: heparin GI Prophylaxis: Pepcid PT/OT: Pending Prognosis is guarded and discussed them problem and management plan with him and he is agreeable. Risks including but not limited to bleeding and explained for him extensively and he is agreeable
[2023-02-12] MEDS: TAMSULOSIN 0.4 MG CAP.ER.24H PO SCH (20:13)
[2023-02-12] MEDS: ATORVASTATIN 40 MG TAB PO SCH (20:14)
[2023-02-13] MEDS: SODIUM CHLORIDE 0.9% 1,000 ML IV SCH ×2 (05:24→05:25)
[2023-02-13] MEDS: GABAPENTIN 300 MG CAP PO SCH ×3 (05:24→20:18)
[2023-02-13] MEDS: ALBUTEROL NEBULIZED 2.5 MG/3 ML INHALATION SCH ×3 (08:54→20:50)
[2023-02-13] MEDS ORDERED: DILTIAZEM DRIP BOLUS FROM BAG 1 MG SOLN IV ONE (09:00)
[2023-02-13] MEDS: CALCIUM CARB-VIT D 500 MG-5 MCG TAB PO SCH ×2 (09:18→20:18)
[2023-02-13] MEDS: CHOLECALCIFEROL 25 MCG (1000 IU) TABLET PO SCH (09:18)
[2023-02-13] MEDS: APIXABAN 5 MG TAB PO SCH ×2 (09:18→20:18)
[2023-02-13] MEDS: METOPROLOL TARTRATE 50 MG TAB PO SCH ×2 (09:18→20:18)
[2023-02-13] MEDS: DILTIAZEM 125 MG in SODIUM CHLORIDE 0.9% 100 ML IV SCH (09:19)
[2023-02-13] MEDS: FAMOTIDINE 20 MG/2 ML VIAL IV SCH ×2 (09:19→20:18)
--- NOTE | 2023-02-13 11:56 | P.PN ---
Subjective HISTORY OF PRESENT ILLNESS: Patient examined this morning at the bedside. Patient currently denies chest pain or pressure. He denies shortness of breath. Telemetry reveals atrial fibrillation with a heart rate in the 120s. PHYSICAL EXAM: VITAL SIGNS: Reviewed. GENERAL: Well-developed in no acute distress. NECK: Supple. No JVD or thyromegaly LUNGS: Respirations even and unlabored. Lungs essentially clear to auscultation bilaterally. HEART: Tachycardic. Irregular rate and rhythm. S1 and S2 heard. EXTREMITIES: Normal range of motion. No clubbing or cyanosis. Peripheral pulses intact. No lower extremity edema ASSESSMENT: 1. New onset atrial fibrillation with RVR 2. Coronary artery disease with prior angioplasty 3. Hypertension 4. Dyslipidemia 5. Diabetes PLAN: Continue current cardiac medications Continue current dose of metoprolol Begin IV Cardizem bolus and drip Continue telemetry monitoring Nothing by mouth at midnight for possible VIRGIL/cardioversion Further recommendations pending patient's course Nurse practitioner note has been reviewed by physician. Signing provider agrees with the documented findings, assessment, and plan of care. Objective - Vital Signs Vital signs: Vital Signs Temp 98.3 F 02/13/23 04:00 Pulse 112 H 02/13/23 09:09 Resp 16 02/13/23 08:00 BP 129/62 02/13/23 08:00 Pulse Ox 98 02/13/23 08:00 FiO2 Intake & Output 02/12/23 02/13/23 02/13/23 18:59 06:59 18:59 Intake Total 1138 118 Output Total 1650 2450 300 Balance -512 -2450 -182 Intake: Oral 1138 118 Output: Urine 1650 2450 300 Other: Voiding Method External Catheter External Catheter External Catheter # Voids 1 - Labs CBC & Chem 7: 02/10/23 06:09 02/10/23 06:09
--- NOTE | 2023-02-13 15:10 | P.PN ---
Subjective Progress Note Date: 02/13/23 This is a 59-year-old male with history of diabetes hypertension patient resides at [facility]. He was brought to the hospital due to a syncopal episode and chest pain lasted for about a half hour. When patient was brought in and was found to be in atrial fibrillation with rapid ventricular rate. Today his heart rate remains elevated in the 110s and he is currently on an IV heparin drip. Metoprolol was increased by cardiology and patient has also been started on eliquis 5 mg twice a day. Patient had a troponin level done today which was negative. Cardiology is considering VIRGIL and cardioversion in the morning. Review of Systems Constitutional: Denied any fatigue denied any fever. Cardio vascular: denied any chest pain, palpitations Gastrointestinal: denied any nausea, vomiting, diarrhea Pulmonary: Denied any shortness of breath cough Neurologic denied any new focal deficits All inpatient medications were reviewed and appropriate changes in these medications as dictated in the interval history and assessment and plan. PHYSICAL EXAMINATION: GENERAL: The patient is alert and oriented x3, not in any acute distress. Well developed, well nourished. HEENT: Pupils are round and equally reacting to light. EOMI. No scleral icterus. No conjunctival pallor. Normocephalic, atraumatic. No pharyngeal erythema. No thyromegaly. CARDIOVASCULAR: S1 and S2 present. No murmurs, rubs, or gallops. PULMONARY: Chest is clear to auscultation, no wheezing or crackles. ABDOMEN: Soft, nontender, nondistended, normoactive bowel sounds. No palpable organomegaly. MUSCULOSKELETAL: No joint swelling or deformity. EXTREMITIES: No cyanosis, clubbing, or pedal edema. NEUROLOGICAL: Gross neurological examination did not reveal any focal deficits. SKIN: No rashes. Assessment New-onset atrial fibrillation with rapid ventricular rate Diabetes mellitus Hypertension Urinary artery disease with prior cardiac stenting Chronic mild bicytopenia with thrombocytopenia and anemia. Morbid obesity, BMI 40.6 GI prophylaxis DVT prophylaxis Full Code Plan Continue on Eliquis BID Resumed on IV cardizem today due to the elevated heart rate, metoprolol has been increased Cardiology planning on VIRGIL cardioversion in the AM F/U labs Return to ECF on discharge The impression and plan of care has been dictated by Venessa Palomo, Nurse Practitioner as directed. Dr. Suhas MD I have performed a history and physical examination and medical decision making of this patient, discussed the same with the dictator, and agree with the dictators assessment and plan as written, documented as a scribe. Based on total visit time, I have performed more than 50% of this visit. Objective - Vital Signs Vital signs: Vital Signs Temp 98.3 F 02/13/23 04:00 Pulse 112 H 02/13/23 09:09 Resp 16 02/13/23 08:00 BP 129/62 02/13/23 08:00 Pulse Ox 98 02/13/23 08:00 FiO2 Intake & Output 02/12/23 02/13/23 02/13/23 18:59 06:59 18:59 Intake Total 1138 118 Output Total 1650 2450 Balance -512 -2450 118 Intake: Oral 1138 118 Output: Urine 1650 2450 Other: Voiding Method External Catheter External Catheter # Voids 1 - Labs CBC & Chem 7: 02/10/23 06:09 02/10/23 06:09 Assessment and Plan Time with Patient: Less than 30
[2023-02-13 17:04] LABS: Glucose,Whole Blood 181 mg/dL (70-110)
--- NOTE | 2023-02-13 17:40 | CA ---
Transthoracic Echo Report Name: Zoltan Peace Age: 67 Gender: M : 1955 Exam Date: 02/13/2023 14:47 Exam Location: [facility] Ht (in): 74 Wt (lb): 282 Ordering Physician: Sirena Heard Attending/Referring Phys: [id number], Orquidea Sliver Cutter Nancy Mason, DARRIUS Procedure CPT: Indications: LV function Cardiac Hx: Technical Quality: Technically difficult study Contrast 1: Lumason Total Dose (mL): 3 Contrast 2: Total Dose (mL): MEASUREMENTS (Male / Female) Normal Values 2D ECHO LV Diastolic Diameter PLAX 5.4 cm 4.2 - 5.9 / 3.9 - 5.3 cm LV Systolic Diameter PLAX 4.4 cm IVS Diastolic Thickness 1.3 cm 0.6 - 1.0 / 0.6 - 0.9 cm LVPW Diastolic Thickness 1.1 cm 0.6 - 1.0 / 0.6 - 0.9 cm LV Relative Wall Thickness 0.4 RV Internal Dim ED PLAX 3.0 cm LA Systolic Diameter LX 3.9 cm 3.0 - 4.0 / 2.7 - 3.8 cm LA Volume 82.4 cm??? 18 - 58 / 22 - 52 cm??? LA Volume Index 31.4 cm???/m??? 16 - 28 cm???/m??? M-MODE Aortic Root Diameter MM 3.1 cm MV E Point Septal Separation 1.1 cm AV Cusp Separation MM 2.2 cm DOPPLER AV Peak Velocity 74.9 cm/s AV Peak Gradient 2.2 mmHg MV Area PHT 4.0 cm??? MV Deceleration Time 178.1 ms TR Peak Velocity 232.4 cm/s TR Peak Gradient 21.6 mmHg Right Ventricular Systolic Press 25.6 mmHg FINDINGS Left Ventricle Left ventricular ejection fraction is estimated at 30-35 %. Left ventricular cavity size normal. Mildly increased septal wall thickness. Moderately reduced global left ventricular systolic function. Right Ventricle Normal right ventricular size. Right ventricular systolic pressure within normal limits. Right Atrium Right atrium not well visualized. Left Atrium Severely increased left atrial volume. Mildly increased left atrial area. Mitral Valve Mitral valve thickened. Mitral annular calcification. Aortic Valve Aortic valve not well visualized. Tricuspid Valve Tricuspid valve not well visualized. Mild tricuspid regurgitation. Pulmonic Valve Structurally normal pulmonic valve. Pericardium No pericardial effusion. Aorta Normal size aortic root and proximal ascending aorta. CONCLUSIONS Moderate to severe LV dysfunction with an ejection fraction of 30-35% with diffuse global hypokinesis Mild tricuspid regurgitation Previewed by: Dr. Moreno Leary MD (Electronically Signed) Final Date: 13 February 2023 17:39
[2023-02-13 20:05] LABS: Glucose,Whole Blood 190 mg/dL (70-110)
[2023-02-13] MEDS: ATORVASTATIN 40 MG TAB PO SCH (20:18)
[2023-02-13] MEDS: TAMSULOSIN 0.4 MG CAP.ER.24H PO SCH (20:18)
[2023-02-13] MEDS ORDERED: DICLOFENAC SODIUM GEL 100 GM TUBE TOPICAL PRN (21:17)
[2023-02-13] MEDS ORDERED: DEXTROSE 50% SYRINGE 50 ML IVP PRN ×2 (21:19)
[2023-02-13] MEDS: INSULIN DETEMIR (LEVEMIR) 100 UNIT/ML SYR SQ SCH (23:13)
[2023-02-14] MEDS: DILTIAZEM 125 MG in SODIUM CHLORIDE 0.9% 100 ML IV SCH (03:57)
[2023-02-14 06:00] LABS: Glucose,Whole Blood 146 mg/dL (70-110)
[2023-02-14] MEDS: INSULIN ASPART (NovoLOG) 100 UNIT/ML VIAL SQ SCH ×4 (06:15→20:24)
[2023-02-14 07:20] LABS: African American GFR (CKD) >90 (>60 ml/min/1.73 sqM); Anion Gap 10 mmol/L; Blood Urea Nitrogen 12 mg/dL (9-20); Calcium 8.5 mg/dL (8.4-10.2); Carbon Dioxide 22 mmol/L (22-30); Chloride 105 mmol/L (98-107); Glucose 138 mg/dL (74-99); Non-African American GFR(CKD) 89 (>60 ml/min/1.73 sqM); Potassium 4.4 mmol/L (3.5-5.1); Sodium 137 mmol/L (137-145)
[2023-02-14 07:34] LABS: Basophils % (A) 0 %; Eosinophils # (A) 0.2 k/uL (0-0.7); Eosinophils % (A) 3 %; HCT 35.1 % (39.0-53.0); HGB 11.9 gm/dL (13.0-17.5); Lymphocytes # (A) 1.7 k/uL (1.0-4.8); Lymphocytes % (A) 21 %; MCH 32.3 pg (25.0-35.0); MCHC 33.8 g/dL (31.0-37.0); MCV 95.7 fL (80.0-100.0); Mean Platelet Volume 9.4; Monocytes # (A) 0.7 k/uL (0-1.0); Monocytes % (A) 8 %; Neutrophils # (A) 5.4 k/uL (1.3-7.7); Neutrophils % (A) 66 %; Platelet Count 125 k/uL (150-450); RBC 3.67 m/uL (4.30-5.90); RDW 13.9 % (11.5-15.5); WBC 8.1 k/uL (3.8-10.6)
[2023-02-14] MEDS: ALBUTEROL NEBULIZED 2.5 MG/3 ML INHALATION SCH ×3 (08:35→21:50)
[2023-02-14] MEDS: APIXABAN 5 MG TAB PO SCH ×2 (10:03→20:24)
[2023-02-14] MEDS ORDERED: METOPROLOL TARTRATE 50 MG TAB PO STA ×2 (10:03→21:52)
[2023-02-14] MEDS: ASPIRIN 81 MG PO SCH (10:03)
[2023-02-14] MEDS: GABAPENTIN 300 MG CAP PO SCH ×3 (10:03→22:54)
[2023-02-14] MEDS: FUROSEMIDE 40 MG TAB PO SCH (10:03)
[2023-02-14] MEDS: MULTIVITAMINS, THERA 1 EACH TAB PO SCH (10:04)
[2023-02-14] MEDS: CHOLECALCIFEROL 25 MCG (1000 IU) TABLET PO SCH (10:04)
[2023-02-14] MEDS: METOPROLOL TARTRATE 50 MG TAB PO SCH ×2 (10:04→20:24)
[2023-02-14] MEDS: FAMOTIDINE 20 MG TAB PO SCH (10:12)
[2023-02-14] MEDS: CALCIUM CARB-VIT D 500 MG-5 MCG TAB PO SCH ×2 (10:13→20:24)
[2023-02-14 11:45] LABS: Glucose,Whole Blood 153 mg/dL (70-110)
--- NOTE | 2023-02-14 13:28 | P.PN ---
Subjective HISTORY OF PRESENT ILLNESS: Patient examined this morning at the bedside. Patient currently denies chest pain or pressure. He denies shortness of breath. Telemetry reveals atrial fibrillation with a heart rate in the 120s. 02/14/2023 Patient examined this morning at the bedside. Patient denies chest pain or pressure. He denies shortness of breath. Denies dizziness or palpitations. Echocardiogram completed revealing ejection fraction 30-35%. Telemetry reveals atrial fibrillation with a heart rate around [id number]. He remains on IV Cardizem. PHYSICAL EXAM: VITAL SIGNS: Reviewed. GENERAL: Well-developed in no acute distress. NECK: Supple. No JVD or thyromegaly LUNGS: Respirations even and unlabored. Lungs essentially clear to auscultation bilaterally. HEART: Tachycardic. Irregular rate and rhythm. S1 and S2 heard. EXTREMITIES: Normal range of motion. No clubbing or cyanosis. Peripheral pulses intact. No lower extremity edema ASSESSMENT: 1. New onset atrial fibrillation with RVR 2. Coronary artery disease with prior angioplasty 3. Hypertension 4. Dyslipidemia 5. Diabetes 6. Cardiomyopathy, may be tachycardia/A. fib induced PLAN: Continue current cardiac medications Increase dose of metoprolol to 200 mg twice a day Discontinue IV Cardizem Continue telemetry monitoring Nothing by mouth at midnight for possible VIRGIL/cardioversion Patient will require eventual cardiac catheterization due to cardiomyopathy. This may be performed on an outpatient basis. Further recommendations pending patient's course Nurse practitioner note has been reviewed by physician. Signing provider agrees with the documented findings, assessment, and plan of care. Objective - Vital Signs Vital signs: Vital Signs Temp 97.4 F L 02/14/23 11:25 Pulse 80 02/14/23 11:25 Resp 14 02/14/23 11:25 BP 100/75 02/14/23 11:25 Pulse Ox 97 02/14/23 11:25 FiO2 Intake & Output 02/13/23 02/14/23 02/14/23 18:59 06:59 18:59 Intake Total 718 93.167 Output Total 950 1050 850 Balance -221 -476.833 -431 Weight 130.5 kg Intake: Intake, IV Titration 93.167 Amount Diltiazem 125 mg In 93.167 Sodium Chloride 0.9% 100 ml @ 5 MG/HR 5 mls/hr IV .Q24H [facility] Rx#:[id number] Oral 718 Output: Urine 950 1050 850 Other: Voiding Method External Catheter External Catheter External Catheter # Bowel Movements 1 - Labs CBC & Chem 7: 02/14/23 06:23 02/14/23 06:23 Labs: Abnormal Lab Results - Last 24 Hours (Table) 02/13/23 02/13/23 02/14/23 Range/Units 17:01 20:04 05:58 RBC (4.30-5.90) m/uL Hgb (13.0-17.5) gm/dL Hct (39.0-53.0) % Plt Count (150-450) k/uL Glucose (74-99) mg/dL POC Glucose (mg/dL) 181 H 190 H 146 H (70-110) mg/dL Hemoglobin A1c (<=6.0) % 02/14/23 02/14/23 02/14/23 Range/Units 06: 06:23 06:23 RBC 3.67 L (4.30-5.90) m/uL Hgb 11.9 L (13.0-17.5) gm/dL Hct 35.1 L (39.0-53.0) % Plt Count 125 L (150-450) k/uL Glucose 138 H (74-99) mg/dL POC Glucose (mg/dL) (70-110) mg/dL Hemoglobin A1c 6.5 H (<=6.0) % 02/14/23 Range/Units 11:44 RBC (4.30-5.90) m/uL Hgb (13.0-17.5) gm/dL Hct (39.0-53.0) % Plt Count (150-450) k/uL Glucose (74-99) mg/dL POC Glucose (mg/dL) 153 H (70-110) mg/dL Hemoglobin A1c (<=6.0) %
[2023-02-14 13:50] VITALS: BMI 36.9
--- NOTE | 2023-02-14 15:35 | P.PN ---
Subjective Progress Note Date: 02/14/23 This is a 59-year-old male with history of diabetes hypertension patient resides at [facility]. He was brought to the hospital due to a syncopal episode and chest pain lasted for about a half hour. When patient was brought in and was found to be in atrial fibrillation with rapid ventricular rate. Today his heart rate remains elevated in the 110s and he is currently on an IV heparin drip. Metoprolol was increased by cardiology and patient has also been started on eliquis 5 mg twice a day. Patient had a troponin level done today which was negative. Cardiology is considering VIRGIL and cardioversion in the morning. 02/14/2023 Patient evaluated today resting in bed. Was on IV cardizem overnight and today has been discontinued with increase in metoprolol 200 mg BID. Heart rate is now in the 80s. Echocardiogram showing an EF of 30-35% with diffuse global hypokinesis. Patient will require cardiac catheterization this can be done outpatient. Review of Systems Constitutional: Denied any fatigue denied any fever. Cardio vascular: denied any chest pain, palpitations Gastrointestinal: denied any nausea, vomiting, diarrhea Pulmonary: Denied any shortness of breath cough Neurologic denied any new focal deficits All inpatient medications were reviewed and appropriate changes in these medications as dictated in the interval history and assessment and plan. PHYSICAL EXAMINATION: GENERAL: The patient is alert and oriented x3, not in any acute distress. Well developed, well nourished. HEENT: Pupils are round and equally reacting to light. EOMI. No scleral icterus. No conjunctival pallor. Normocephalic, atraumatic. No pharyngeal erythema. No thyromegaly. CARDIOVASCULAR: S1 and S2 present. No murmurs, rubs, or gallops. PULMONARY: Chest is clear to auscultation, no wheezing or crackles. ABDOMEN: Soft, nontender, nondistended, normoactive bowel sounds. No palpable organomegaly. MUSCULOSKELETAL: No joint swelling or deformity. EXTREMITIES: No cyanosis, clubbing, or pedal edema. NEUROLOGICAL: Gross neurological examination did not reveal any focal deficits. SKIN: No rashes. Assessment New-onset atrial fibrillation with rapid ventricular rate Heart rate now controlled. Cardiomyopathy unspecified possibly a.fib induced. Diabetes mellitus Hypertension Urinary artery disease with prior cardiac stenting Chronic mild bicytopenia with thrombocytopenia and anemia. Morbid obesity, BMI 40.6 GI prophylaxis DVT prophylaxis Full Code Plan Continue on Eliquis BID Metoprolol increased to 200 mg BID. Possible VIRGIL/Cardioversion Will need cardiac catheterization which can be scheduled outpatient. Resumed on home insulin. F/U labs Return to ECF on discharge possibly in the next 24-48 hours The impression and plan of care has been dictated by Venessa Palomo, Nurse Practitioner as directed. Dr. Suhas MD I have performed a history and physical examination and medical decision making of this patient, discussed the same with the dictator, and agree with the dictators assessment and plan as written, documented as a scribe. Based on total visit time, I have performed more than 50% of this visit. Objective - Vital Signs Vital signs: Vital Signs Temp 98.2 F 02/14/23 04:00 Pulse 101 H 02/14/23 04:00 Resp 15 02/14/23 04:00 BP 120/65 02/14/23 04:00 Pulse Ox 96 02/14/23 04:00 FiO2 Intake & Output 02/13/23 02/14/23 02/14/23 18:59 06:59 18:59 Intake Total 718 93.167 Output Total 950 1050 Balance -232 -956.833 Weight 130.5 kg Intake: Intake, IV Titration 93.167 Amount Diltiazem 125 mg In 93.167 Sodium Chloride 0.9% 100 ml @ 5 MG/HR 5 mls/hr IV .Q24H [facility] Rx#:[id number] Oral 718 Output: Urine 950 1050 Other: Voiding Method External Catheter External Catheter # Bowel Movements 1 - Labs CBC & Chem 7: 02/14/23 06:23 02/14/23 06:23 Labs: Abnormal Lab Results - Last 24 Hours (Table) 02/13/23 02/13/23 02/14/23 Range/Units 17:01 20:04 05:58 RBC (4.30-5.90) m/uL Hgb (13.0-17.5) gm/dL Hct (39.0-53.0) % Plt Count (150-450) k/uL Glucose (74-99) mg/dL POC Glucose (mg/dL) 181 H 190 H 146 H (70-110) mg/dL 02/14/23 02/14/23 Range/Units 06:23 06:23 RBC 3.67 L (4.30-5.90) m/uL Hgb 11.9 L (13.0-17.5) gm/dL Hct 35.1 L (39.0-53.0) % Plt Count 125 L (150-450) k/uL Glucose 138 H (74-99) mg/dL POC Glucose (mg/dL) (70-110) mg/dL Assessment and Plan Time with Patient: Less than 30
[2023-02-14 16:46] LABS: Glucose,Whole Blood 204 mg/dL (70-110)
--- NOTE | 2023-02-14 18:48 | CDI ---
Documentation Clarification Form Date: 02/14/2023 06:19:12 PM From: Modesta Alexander RN, CCDS Admit Date: 02/09/2023 10:54:00 AM Patient Name: Zoltan Peace Visit Number: [id number] Discharge Date: ATTENTION: The Clinical Documentation Specialists (CDI) and [facility] Coding Staff appreciate your assistance in clarifying documentation. Please respond to the clarification below the line at the bottom and electronically sign. The CDI & [facility] Coding staff will review the response and follow-up if needed. Please note: Queries are made part of the Legal Health Record. If you have any questions, please contact the author of this message via ITS. Dr. Fenton E Viky Diabetes is documented in the H/P and subsequent progress notes. Additional specificity regarding the diabetes diagnosis is requested. History/Risk Factors: Diabetes Mellitus, Hypertension, Former smoker Clinical Indicators: 67-year-old male past medical history of diabetes, on ongoing treatment with insulin. 02/14 Labs: glucose 138, 146 153 204 Hemoglobin A1c 6.5 Treatment: Cardiac /Telemetry monitoring Hypoglycemia Protocol Adult Blood Glucose Monitoring Levemir 12 units SQ HS Novolog SQ ACHS (scale) Please clarify the type of diabetes, if known: [ ] Diabetes Type 1 Is diabetes inadequately or poorly controlled or out of control Yes___, No . [ ] Diabetes Type 2 Is diabetes inadequately or poorly controlled or out of control Yes___, No . [ ] Other, please specify [ ] Unable to Determine (Template Last Revised: July 2020) Diabetes Type 2 Is diabetes, well controlled MTDD
[2023-02-14] MEDS: ATORVASTATIN 40 MG TAB PO SCH (20:24)
[2023-02-14] MEDS: FLUTICASONE 50MCG/SPRAY NASAL 16GM EA NOSTRIL SCH (20:24)
[2023-02-14] MEDS: TAMSULOSIN 0.4 MG CAP.ER.24H PO SCH (20:24)
[2023-02-14] MEDS: INSULIN DETEMIR (LEVEMIR) 100 UNIT/ML SYR SQ SCH (20:24)
[2023-02-14 20:25] LABS: Glucose,Whole Blood 164 mg/dL (70-110)
[2023-02-15] MEDS: FAMOTIDINE 20 MG TAB PO SCH (05:13)
[2023-02-15] MEDS: GABAPENTIN 300 MG CAP PO SCH ×3 (05:24→21:42)
[2023-02-15] MEDS: FUROSEMIDE 40 MG TAB PO SCH (05:24)
[2023-02-15 06:28] LABS: Glucose,Whole Blood 177 mg/dL (70-110)
[2023-02-15] MEDS: INSULIN ASPART (NovoLOG) 100 UNIT/ML VIAL SQ SCH ×3 (06:37→17:18)
[2023-02-15] MEDS: ALBUTEROL NEBULIZED 2.5 MG/3 ML INHALATION SCH ×3 (08:20→20:37)
[2023-02-15] MEDS: APIXABAN 5 MG TAB PO SCH ×2 (09:01→21:42)
[2023-02-15] MEDS: CHOLECALCIFEROL 25 MCG (1000 IU) TABLET PO SCH (09:03)
[2023-02-15] MEDS: MULTIVITAMINS, THERA 1 EACH TAB PO SCH (09:03)
[2023-02-15] MEDS: ASPIRIN 81 MG PO SCH (09:03)
[2023-02-15] MEDS: METOPROLOL TARTRATE 50 MG TAB PO SCH (09:04)
[2023-02-15] MEDS: HYDROcodone/APAP 7.5-325MG 1 EACH TAB PO PRN (09:08)
[2023-02-15] MEDS: CALCIUM CARB-VIT D 500 MG-5 MCG TAB PO SCH ×2 (09:08→21:42)
[2023-02-15 11:19] LABS: Glucose,Whole Blood 148 mg/dL (70-110)
--- NOTE | 2023-02-15 12:52 | P.PN ---
Subjective Progress Note Date: 02/15/23 This is a 59-year-old male with history of diabetes hypertension patient resides at [facility]. He was brought to the hospital due to a syncopal episode and chest pain lasted for about a half hour. When patient was brought in and was found to be in atrial fibrillation with rapid ventricular rate. Today his heart rate remains elevated in the 110s and he is currently on an IV heparin drip. Metoprolol was increased by cardiology and patient has also been started on eliquis 5 mg twice a day. Patient had a troponin level done today which was negative. Cardiology is considering VIRGIL and cardioversion in the morning. 02/14/2023 Patient evaluated today resting in bed. Was on IV cardizem overnight and today has been discontinued with increase in metoprolol 200 mg BID. Heart rate is now in the 80s. Echocardiogram showing an EF of 30-35% with diffuse global hypokinesis. Patient will require cardiac catheterization this can be done outpatient. 02/15/2023 Patient is evaluated today on the medical floor. He is pending VIRGIL cardioversion today he remained in atrial fibrillation heart rate in the 110s overnight. No other acute complaints. Transitioned to oral lasix. Review of Systems Constitutional: Denied any fatigue denied any fever. Cardio vascular: denied any chest pain, palpitations Gastrointestinal: denied any nausea, vomiting, diarrhea Pulmonary: Denied any shortness of breath cough Neurologic denied any new focal deficits All inpatient medications were reviewed and appropriate changes in these medications as dictated in the interval history and assessment and plan. PHYSICAL EXAMINATION: GENERAL: The patient is alert and oriented x3, not in any acute distress. Well developed, well nourished. HEENT: Pupils are round and equally reacting to light. EOMI. No scleral icterus. No conjunctival pallor. Normocephalic, atraumatic. No pharyngeal erythema. No thyromegaly. CARDIOVASCULAR: S1 and S2 present. No murmurs, rubs, or gallops. PULMONARY: Chest is clear to auscultation, no wheezing or crackles. ABDOMEN: Soft, nontender, nondistended, normoactive bowel sounds. No palpable organomegaly. MUSCULOSKELETAL: No joint swelling or deformity. EXTREMITIES: No cyanosis, clubbing, or pedal edema. NEUROLOGICAL: Gross neurological examination did not reveal any focal deficits. Diffuse weakness patient is bed bound at baseline for the last 6 months. SKIN: No rashes. Assessment New-onset atrial fibrillation with rapid ventricular rate Cardiomyopathy unspecified possibly a.fib induced. Diabetes mellitus type 2 controlled. Hypertension Urinary artery disease with prior cardiac stenting Chronic mild bicytopenia with thrombocytopenia and anemia. Morbid obesity, BMI 40.6 GI prophylaxis DVT prophylaxis Full Code Plan Continue on Eliquis BID Metoprolol increased to 200 mg BID. Pending VIRGIL/Cardioversion Will need cardiac catheterization which can be scheduled outpatient. Resumed on home insulin. F/U labs Return to ECF on discharge possibly in the next 24-48 hours The impression and plan of care has been dictated by Venessa Palomo, Nurse Practitioner as directed. Dr. Suhas MD I have performed a history and physical examination and medical decision making of this patient, discussed the same with the dictator, and agree with the dictators assessment and plan as written, documented as a scribe. Based on total visit time, I have performed more than 50% of this visit. Objective - Vital Signs Vital signs: Vital Signs Temp 97.4 F L 02/15/23 12:00 Pulse 108 H 02/15/23 12:25 Resp 17 02/15/23 12:00 BP 116/56 02/15/23 12:00 Pulse Ox 99 02/15/23 12:00 FiO2 Intake & Output 02/14/23 02/15/23 02/15/23 18:59 06:59 18:59 Intake Total 240 Output Total 1500 1700 Balance -1260 -1700 Weight 130.5 kg Intake: Oral 240 Output: Urine 1500 1700 Other: Voiding Method External Catheter External Catheter - Labs CBC & Chem 7: 02/14/23 06:23 02/14/23 06:23 Labs: Abnormal Lab Results - Last 24 Hours (Table) 02/14/23 02/14/23 02/15/23 Range/Units 16:45 20:23 06:26 POC Glucose (mg/dL) 204 H 164 H 177 H (70-110) mg/dL 02/15/23 Range/Units 11:17 POC Glucose (mg/dL) 148 H (70-110) mg/dL Assessment and Plan Time with Patient: Less than 30
--- NOTE | 2023-02-15 13:26 | P.PN ---
Subjective HISTORY OF PRESENT ILLNESS: Patient examined this morning at the bedside. Patient currently denies chest pain or pressure. He denies shortness of breath. Telemetry reveals atrial fibrillation with a heart rate in the 120s. 02/14/2023 Patient examined this morning at the bedside. Patient denies chest pain or pressure. He denies shortness of breath. Denies dizziness or palpitations. Echocardiogram completed revealing ejection fraction 30-35%. Telemetry reveals atrial fibrillation with a heart rate around [id number]. He remains on IV Cardizem. 02/15/2023 Patient examined this morning at the bedside. Patient denies chest pain or pressure. He denies shortness of breath. Telemetry reveals atrial fibrillation with heart rate of 120. PHYSICAL EXAM: VITAL SIGNS: Reviewed. GENERAL: Well-developed in no acute distress. NECK: Supple. No JVD or thyromegaly LUNGS: Respirations even and unlabored. Lungs essentially clear to auscultation bilaterally. HEART: Tachycardic. Irregular rate and rhythm. S1 and S2 heard. EXTREMITIES: Normal range of motion. No clubbing or cyanosis. Peripheral pu lses intact. No lower extremity edema ASSESSMENT: 1. New onset atrial fibrillation with RVR 2. Coronary artery disease with prior angioplasty 3. Hypertension 4. Dyslipidemia 5. Diabetes 6. Cardiomyopathy, may be tachycardia/A. fib induced PLAN: Continue current cardiac medications Continue current dose of metoprolol to 200 mg twice a day Continue telemetry monitoring Patient initially scheduled for VIRGIL/cardioversion. However due to scheduling issues, this will be rescheduled for tomorrow with Dr. Leary Patient will require eventual cardiac catheterization due to cardiomyopathy. This may be performed on an outpatient basis. Further recommendations pending patient's course Nurse practitioner note has been reviewed by physician. Signing provider agrees with the documented findings, assessment, and plan of care. Objective - Vital Signs Vital signs: Vital Signs Temp 97.4 F L 02/15/23 12:00 Pulse 108 H 02/15/23 12:25 Resp 17 02/15/23 12:00 BP 116/56 02/15/23 12:00 Pulse Ox 99 02/15/23 12:00 FiO2 Intake & Output 02/14/23 02/15/23 02/15/23 18:59 06:59 18:59 Intake Total 240 Output Total 1500 1700 Balance -1260 -1700 Weight 130.5 kg Intake: Oral 240 Output: Urine 1500 1700 Other: Voiding Method External Catheter External Catheter - Labs CBC & Chem 7: 02/14/23 06:23 02/14/23 06:23 Labs: Abnormal Lab Results - Last 24 Hours (Table) 02/14/23 02/14/23 02/15/23 Range/Units 16:45 20:23 06:26 POC Glucose (mg/dL) 204 H 164 H 177 H (70-110) mg/dL 02/15/23 Range/Units 11:17 POC Glucose (mg/dL) 148 H (70-110) mg/dL
[2023-02-15 16:50] LABS: Glucose,Whole Blood 126 mg/dL (70-110)
[2023-02-15 20:00] LABS: Glucose,Whole Blood 169 mg/dL (70-110)
[2023-02-15] MEDS: TAMSULOSIN 0.4 MG CAP.ER.24H PO SCH (21:42)
[2023-02-15] MEDS: INSULIN DETEMIR (LEVEMIR) 100 UNIT/ML SYR SQ SCH (21:42)
[2023-02-15] MEDS: ATORVASTATIN 40 MG TAB PO SCH (21:42)
[2023-02-16] MEDS: INSULIN ASPART (NovoLOG) 100 UNIT/ML VIAL SQ SCH ×5 (00:46→20:24)
[2023-02-16] MEDS: METOPROLOL TARTRATE 50 MG TAB PO SCH ×3 (00:46→20:24)
[2023-02-16] MEDS: FLUTICASONE 50MCG/SPRAY NASAL 16GM EA NOSTRIL SCH ×2 (00:46→20:28)
[2023-02-16 06:21] LABS: Glucose,Whole Blood 148 mg/dL (70-110)
[2023-02-16] MEDS: GABAPENTIN 300 MG CAP PO SCH ×3 (06:24→20:24)
[2023-02-16] MEDS: FUROSEMIDE 40 MG TAB PO SCH (06:25)
[2023-02-16] MEDS: FAMOTIDINE 20 MG TAB PO SCH (06:25)
[2023-02-16] MEDS: APIXABAN 5 MG TAB PO SCH ×2 (08:25→20:24)
[2023-02-16] MEDS: ASPIRIN 81 MG PO SCH (08:26)
[2023-02-16] MEDS: CHOLECALCIFEROL 25 MCG (1000 IU) TABLET PO SCH (08:26)
[2023-02-16] MEDS: CALCIUM CARB-VIT D 500 MG-5 MCG TAB PO SCH ×2 (08:26→20:24)
[2023-02-16] MEDS: MULTIVITAMINS, THERA 1 EACH TAB PO SCH (08:26)
[2023-02-16] MEDS: HYDROcodone/APAP 7.5-325MG 1 EACH TAB PO PRN (08:27)
[2023-02-16] MEDS: ALBUTEROL NEBULIZED 2.5 MG/3 ML INHALATION SCH ×4 (08:28→21:00)
[2023-02-16] MEDS ORDERED: BENZOCAINE SPRAY 1 CAN TOPICAL ONE (10:30)
[2023-02-16] MEDS ORDERED: PROPOFOL 10 MG/ML 20 ML VIAL IV ONE (10:37)
[2023-02-16] MEDS ORDERED: LIDOCAINE 1% INJ 10MG/ML (20 ML MDV) ONE (10:37)
[2023-02-16] MEDS ORDERED: SODIUM CHLORIDE 0.9% 1,000 ML IV ONE (11:04)
--- NOTE | 2023-02-16 11:11 | ECHOT ---
TRANSESOPHAGEAL ECHOCARDIOGRAM INDICATION: Persistent atrial fibrillation with poorly-controlled ventricular rate. PROCEDURE PERFORMED: Transesophageal echocardiogram to rule out intracardiac thrombus. PROCEDURE NOTE: After obtaining informed consent, transesophageal echocardiogram was performed in left lateral position using an Omniplane probe. Local and IV sedation were obtained by the chief lock operator. The patient tolerated the procedure well without any obvious immediate complications. FINDINGS: 1. There is no intracardiac thrombus within the left atrial appendage, left atrium, right atrium, or right ventricle. 2. Left ventricle appears mildly enlarged with diffuse global hypokinesis with mild-to- moderate LV dysfunction with an ejection fraction of 40% to 45%. Right ventricle has normal size. There is mild RV systolic dysfunction. Left atrium appears severely enlarged. There is no evidence of [id number] shunt by color-flow Doppler or stbjq-[id number]-xcpy shunt by agitated saline contrast study across the interatrial septum. Mitral valve is anatomically normal. There is mild mitral regurgitation noted. Aortic valve is a 3-leaflet valve. There is no evidence of aortic stenosis or regurgitation. Tricuspid valve appears normal. Aorta measures within normal limits. CONCLUSIONS: 1. No intracardiac thrombus. 2. LV systolic dysfunction with an ejection fraction of around 40% to 45%. 3. Left atrial enlargement. CARDIOVERSION NOTE: INDICATION: Persistent atrial fibrillation. After making sure that the patient is adequately anticoagulated with Eliquis and ruling out an intracardiac thrombus, the patient underwent cardioversion using 150 joules of synchronized DC current. He converted to sinus rhythm following a single shock. He is currently on Eliquis, which he is going to continue. MMODL / IJN: [id number] /
[2023-02-16 11:47] LABS: Glucose,Whole Blood 146 mg/dL (70-110)
--- NOTE | 2023-02-16 15:03 | P.PN ---
Subjective Progress Note Date: 02/16/23 This is a 59-year-old male with history of diabetes hypertension patient resides at [facility]. He was brought to the hospital due to a syncopal episode and chest pain lasted for about a half hour. When patient was brought in and was found to be in atrial fibrillation with rapid ventricular rate. Today his heart rate remains elevated in the 110s and he is currently on an IV heparin drip. Metoprolol was increased by cardiology and patient has also been started on eliquis 5 mg twice a day. Patient had a troponin level done today which was negative. Cardiology is considering VIRGIL and cardioversion in the morning. 02/14/2023 Patient evaluated today resting in bed. Was on IV cardizem overnight and today has been discontinued with increase in metoprolol 200 mg BID. Heart rate is now in the 80s. Echocardiogram showing an EF of 30-35% with diffuse global hypokinesis. Patient will require cardiac catheterization this can be done outpatient. 02/15/2023 Patient is evaluated today on the medical floor. He is pending VIRGIL cardioversion today he remained in atrial fibrillation heart rate in the 110s overnight. No other acute complaints. Transitioned to oral lasix. 02/16/2023 Patient remains on cardiac unit. Continued in atrial fibrillation overnight with heart rate up to the 120s. Patient was scheduled to undergo VIRGIL with cardioversion today which reveals an EF of 40-45% with no intracardiac thrombus and there is left atrial enlargement noted. Patient received 1 single shock at 150 J and has now converted into normal sinus rhythm with a heart rate in the 50s to 60s. Metoprolol was decreased to 100 mg twice a day. Patient was monitored overnight on the cardiac telemetry and if no further episodes of atrial fibrillation patient should be able to return to [facility] tomorrow. Review of Systems Constitutional: Denied any fatigue denied any fever. Cardio vascular: denied any chest pain, palpitations Gastrointestinal: denied any nausea, vomiting, diarrhea Pulmonary: Denied any shortness of breath cough Neurologic denied any new focal deficits All inpatient medications were reviewed and appropriate changes in these medications as dictated in the interval history and assessment and plan. PHYSICAL EXAMINATION: GENERAL: The patient is alert and oriented x3, not in any acute distress. Well developed, well nourished. HEENT: Pupils are round and equally reacting to light. EOMI. No scleral icterus. No conjunctival pallor. Normocephalic, atraumatic. No pharyngeal erythema. No t hyromegaly. CARDIOVASCULAR: S1 and S2 present. No murmurs, rubs, or gallops. PULMONARY: Chest is clear to auscultation, no wheezing or crackles. ABDOMEN: Soft, nontender, nondistended, normoactive bowel sounds. No palpable organomegaly. MUSCULOSKELETAL: No joint swelling or deformity. EXTREMITIES: No cyanosis, clubbing, or pedal edema. NEUROLOGICAL: Gross neurological examination did not reveal any focal deficits. Diffuse weakness patient is bed bound at baseline for the last 6 months. SKIN: No rashes. Assessment New-onset persistent atrial fibrillation with rapid ventricular rate s/p cardioversion now sinus bradycardic heart rate 50-60s. Cardiomyopathy unspecified possibly a.fib induced. EF 40-45% Diabetes mellitus type 2 controlled. Hypertension Urinary artery disease with prior cardiac stenting Chronic mild bicytopenia with thrombocytopenia and anemia. Morbid obesity, BMI 40.6 GI prophylaxis DVT prophylaxis Full Code Plan Continue on Eliquis BID Metoprolol decreased to 100 mg BID s/p cardioversion Will need cardiac catheterization which can be scheduled outpatient. Resumed on home insulin. F/U labs Return to ECF on discharge possibly in the next 24-48 hours The impression and plan of care has been dictated by Venessa Palomo, Nurse Practitioner as directed. Dr. Suhas MD I have performed a history and physical examination and medical decision making of this patient, discussed the same with the dictator, and agree with the dictators assessment and plan as written, documented as a scribe. Based on total visit time, I have performed more than 50% of this visit. Objective - Vital Signs Vital signs: Vital Signs Temp 97.2 F L 02/16/23 11:16 Pulse 58 L 02/16/23 11:34 Resp 16 02/16/23 11:34 BP 109/57 02/16/23 11:34 Pulse Ox 98 02/16/23 11:34 FiO2 Intake & Output 02/15/23 02/16/23 02/16/23 18:59 06:59 18:59 Intake Total 180 100 Output Total 500 1500 Balance -320 -1500 100 Intake: IV 100 Oral 180 Output: Urine 500 1500 Other: Voiding Method External Catheter External Catheter External Catheter - Labs CBC & Chem 7: 02/14/23 06:23 02/14/23 06:23 Labs: Abnormal Lab Results - Last 24 Hours (Table) 02/15/23 02/15/23 02/16/23 Range/Units 16:49 19:58 06:18 POC Glucose (mg/dL) 126 H 169 H 148 H (70-110) mg/dL Assessment and Plan Time with Patient: Less than 30
[2023-02-16] MEDS ORDERED: ONDANSETRON 4 MG/2 ML VIAL IVP PRN (15:40)
[2023-02-16 16:35] LABS: Glucose,Whole Blood 186 mg/dL (70-110)
[2023-02-16 19:28] LABS: Glucose,Whole Blood 156 mg/dL (70-110)
[2023-02-16] MEDS: ATORVASTATIN 40 MG TAB PO SCH (20:24)
[2023-02-16] MEDS: TAMSULOSIN 0.4 MG CAP.ER.24H PO SCH (20:24)
[2023-02-16] MEDS: INSULIN DETEMIR (LEVEMIR) 100 UNIT/ML SYR SQ SCH (20:28)
[2023-02-17 04:23] VITALS: RESP 18
[2023-02-17 05:57] LABS: Glucose,Whole Blood 176 mg/dL (70-110)
[2023-02-17] MEDS: FAMOTIDINE 20 MG TAB PO SCH (06:02)
[2023-02-17] MEDS: GABAPENTIN 300 MG CAP PO SCH (06:02)
[2023-02-17] MEDS: FUROSEMIDE 40 MG TAB PO SCH (06:02)
[2023-02-17] MEDS: INSULIN ASPART (NovoLOG) 100 UNIT/ML VIAL SQ SCH ×2 (06:02→12:18)
[2023-02-17] MEDS: ALBUTEROL NEBULIZED 2.5 MG/3 ML INHALATION SCH ×2 (08:21→15:34)
[2023-02-17] MEDS: METOPROLOL TARTRATE 50 MG TAB PO SCH (08:52)
[2023-02-17] MEDS: MULTIVITAMINS, THERA 1 EACH TAB PO SCH (08:52)
[2023-02-17] MEDS: APIXABAN 5 MG TAB PO SCH (08:52)
[2023-02-17] MEDS: CHOLECALCIFEROL 25 MCG (1000 IU) TABLET PO SCH (08:52)
[2023-02-17] MEDS: CALCIUM CARB-VIT D 500 MG-5 MCG TAB PO SCH (08:52)
[2023-02-17] MEDS: ASPIRIN 81 MG PO SCH (08:52)
[2023-02-17 09:42] VITALS: TEMP 97.9
[2023-02-17 11:23] LABS: Glucose,Whole Blood 178 mg/dL (70-110)
--- NOTE | 2023-02-17 12:10 | P.PN ---
Subjective HISTORY OF PRESENT ILLNESS: Patient examined this morning at the bedside. Patient currently denies chest pain or pressure. He denies shortness of breath. Telemetry reveals atrial fibrillation with a heart rate in the 120s. 02/14/2023 Patient examined this morning at the bedside. Patient denies chest pain or pressure. He denies shortness of breath. Denies dizziness or palpitations. Echocardiogram completed revealing ejection fraction 30-35%. Telemetry reveals atrial fibrillation with a heart rate around [id number]. He remains on IV Cardizem. 02/15/2023 Patient examined this morning at the bedside. Patient denies chest pain or pressure. He denies shortness of breath. Telemetry reveals atrial fibrillation with heart rate of 120. 02/17/2023 Patient is status post VIRGIL and cardioversion. Patient denies chest pain or pressure. She denies shortness of breath. Telemetry reveals sinus mechanism. Vital signs are stable. PHYSICAL EXAM: VITAL SIGNS: Reviewed. GENERAL: Well-developed in no acute distress. NECK: Supple. No JVD or thyromegaly LUNGS: Respirations even and unlabored. Lungs essentially clear to auscultation bilaterally. HEART: Regular rate and rhythm. S1 and S2 heard. EXTREMITIES: Normal range of motion. No clubbing or cyanosis. Peripheral pulses intact. No lower extremity edema ASSESSMENT: 1. New onset atrial fibrillation with RVR, status post VIRGIL and cardiac 2. Coronary artery disease with prior angioplasty 3. Hypertension 4. Dyslipidemia 5. Diabetes 6. Cardiomyopathy, may be tachycardia/A. fib induced PLAN: Continue current cardiac medications Patient is stable for discharge home today from a cardiac standpoint Patient will require eventual cardiac catheterization due to cardiomyopathy. This may be performed on an outpatient basis. Further recommendations pending patient's course Nurse practitioner note has been reviewed by physician. Signing provider agrees with the documented findings, assessment, and plan of care. Objective - Vital Signs Vital signs: Vital Signs Temp 97.9 F 02/17/23 08:00 Pulse 68 02/17/23 08:34 Resp 18 02/17/23 08:00 BP 120/62 02/17/23 08:00 Pulse Ox 96 02/17/23 08:00 FiO2 Intake & Output 02/16/23 02/17/23 02/17/23 18:59 06:59 18:59 Intake Total 236 200 Output Total 850 1100 Balance 236 -650 -1100 Intake: Oral 236 200 Output: Urine 850 1100 Other: Voiding Method External Catheter External Catheter External Catheter # Voids 900 - Labs CBC & Chem 7: 02/14/23 06:23 02/14/23 06:23 Labs: Abnormal Lab Results - Last 24 Hours (Table) 02/16/23 02/16/23 02/17/23 Range/Units 16:34 19:26 05:54 POC Glucose (mg/dL) 186 H 156 H 176 H (70-110) mg/dL 02/17/23 Range/Units 11:17 POC Glucose (mg/dL) 178 H (70-110) mg/dL
[2023-02-17 12:27] VITALS: BP 129/66
--- NOTE | 2023-02-17 13:05 | P.DS ---
Providers Date of admission: 02/09/23 10:54 Expected date of discharge: 02/17/23 Attending physician: Samir Garvey Consults: 02/09/23 10:50 Consult Physician Urgent Consulting Provider: [facility] Reason/Comments: new onset afib with rvr Do you want consulting provider notified?: Yes Primary care physician: [facility] Course: 59-year-old male with history of diabetes hypertension patient resides at [facility]. He was brought to the hospital due to a syncopal episode and chest pain lasted for about a half hour. When patient was brought in and was found to be in atrial fibrillation with rapid ventricular rate. Today his heart rate remains elevated in the 110s and he is currently on an IV heparin drip. Metoprolol was increased by cardiology and patient has also been started on eliquis 5 mg twice a day. Patient had a troponin level done today which was negative. Cardiology is considering VIRGIL and cardioversion in the morning. 02/14/2023 Patient evaluated today resting in bed. Was on IV cardizem overnight and today has been discontinued with increase in metoprolol 200 mg BID. Heart rate is now in the 80s. Echocardiogram showing an EF of 30-35% with diffuse global hypokinesis. Patient will require cardiac catheterization this can be done outpatient. 02/15/2023 Patient is evaluated today on the medical floor. He is pending VIRGIL cardioversion today he remained in atrial fibrillation heart rate in the 110s overnight. No other acute complaints. Transitioned to oral lasix. 02/16/2023 Patient remains on cardiac unit. Continued in atrial fibrillation overnight with heart rate up to the 120s. Patient was scheduled to undergo VIRGIL with cardioversion today which reveals an EF of 40-45% with no intracardiac thrombus and there is left atrial enlargement noted. Patient received 1 single shock at 150 J and has now converted into normal sinus rhythm with a heart rate in the 50s to 60s. Metoprolol was decreased to 100 mg twice a day. Patient was monitored overnight on the cardiac telemetry and if no further episodes of atrial fibrillation patient should be able to return to [facility] tomorrow. 02/17/2023: Patient seen and evaluated bedside. Patient is alert and oriented 3. Patient is status was cardioversion heart rate remains controlled. Continue metoprolol 100 twice a day. We'll discharge back to facility. Prescri ption for gabapentin and [place] which is home regimen provided PHYSICAL EXAMINATION: GENERAL: The patient is alert and oriented x3, not in any acute distress. Well developed, well nourished. HEENT: Pupils are round and equally reacting to light. EOMI. No scleral icterus. No conjunctival pallor. Normocephalic, atraumatic. No pharyngeal erythema. No thyromegaly. CARDIOVASCULAR: S1 and S2 present. No murmurs, rubs, or gallops. PULMONARY: Chest is clear to auscultation, no wheezing or crackles. ABDOMEN: Soft, nontender, nondistended, normoactive bowel sounds. No palpable organomegaly. MUSCULOSKELETAL: No joint swelling or deformity. EXTREMITIES: No cyanosis, clubbing, or pedal edema. NEUROLOGICAL: Gross neurological examination did not reveal any focal deficits. Diffuse weakness patient is bed bound at baseline for the last 6 months. SKIN: No rashes. Assessment: Assessment New-onset persistent atrial fibrillation with rapid ventricular rate s/p card ioversion Cardiomyopathy unspecified possibly a.fib induced. EF 40-45% Diabetes mellitus type 2 controlled. Hypertension Coronary artery disease with prior cardiac stenting Chronic mild bicytopenia with thrombocytopenia and anemia. Morbid obesity, BMI 40.6 Plan Continue on Eliquis BID Metoprolol decreased to 100 mg BID s/p cardioversion Outpatient follow-up with cardiology for cardiac catheterization Home regimen including insulin, pain control and gabapentin continue Plan - Discharge Summary New Discharge Prescriptions: New Apixaban [Eliquis] 5 mg PO BID 30 Days #0 tab lisinopriL [Zestril] 2.5 mg PO DAILY tab Metoprolol Tartrate [Lopressor] 100 mg PO BID tab Continue Diclofenac Sodium Gel [Voltaren 1% Gel] 2 gm TOPICAL BID PRN PRN Reason: HIP/knee pain Insulin Aspart [NovoLOG Flexpen] 10 units SQ TID@0800,1200,1700 Cholecalciferol [Vitamin D3 (25 Mcg = 1000 Iu)] 25 mcg PO DAILY@0900 Semaglutide [Ozempic] 0.5 mg SQ WE@0900 Tamsulosin HCl [Flomax] 0.4 mg PO HS@2100 Insulin Glargine,Hum.rec.anlog [Basaglar Kwikpen U-100] 25 unit SQ HS@2100 guaiFENesin SYRUP 100MG/5ML [Robitussin] 200 mg PO TID PRN ml PRN Reason: Cough Acetaminophen Tab [Tylenol] 650 mg PO Q6HR PRN tab PRN Reason: Mild Pain Or Fever > 100.5 Benzocaine/Menthol Lozeng [Cepacol lozenge] 1 lozenge MUCOUS MEM Q4HR PRN PRN Reason: Cough Calcium Carb-Vit D 500Mg-5Mcg [Oscal 500+D 5 Mcg (200 Iu)] 1 tab PO BID Gabapentin 600 mg PO TID@0600,1400,2200 3 Days #9 tab Lactulose 10 gm PO DAILY PRN PRN Reason: Constipation Albuterol Sulfate [Ventolin HFA] 2 puff INHALATION RT-Q6H Multivitamins, Thera [Multivitamin (formulary)] 1 tab PO DAILY@0900 Rhinocort Aqua Suspension 32mcg/Act 1 spray EA NOSTRIL HS@2100 glipiZIDE [Glucotrol] 5 mg PO DAILY@0900 Furosemide [Lasix] 40 mg PO DAILY@0600 Atorvastatin Calcium [Lipitor] 40 mg PO HS@2100 Famotidine [Pepcid] 20 mg PO DAILY@0600 Aspirin EC [Ecotrin Low Dose] 81 mg PO DAILY@0900 Sennosides [Senokot] 17.2 mg PO DAILY Guaifenesin/Dextromethorphan [Tracie-Tussin Dm 200-20 mg/10 ml] 10 ml PO Q4H PRN PRN Reason: Cough HYDROcodone/APAP 7.5-325MG [[place] 7.5-325] 1 tab PO Q4H PRN 3 Days #18 tab PRN Reason: Pain Discontinued Metoprolol Succinate (ER) [Toprol XL] 12.5 mg PO DAILY@0900 lisinopriL [Zestril] 10 mg PO DAILY amLODIPine [Norvasc] 10 mg PO HS Discharge Medication List Albuterol Sulfate [Ventolin HFA] 2 puff INHALATION RT-Q6H 06/16/22 [History] Aspirin EC [Ecotrin Low Dose] 81 mg PO DAILY@0900 06/16/22 [History] Atorvastatin Calcium [Lipitor] 40 mg PO HS@2100 06/16/22 [History] Cholecalciferol [Vitamin D3 (25 Mcg = 1000 Iu)] 25 mcg PO DAILY@0900 06/16/22 [History] Diclofenac Sodium Gel [Voltaren 1% Gel] 2 gm TOPICAL BID PRN 06/16/22 [History] Famotidine [Pepcid] 20 mg PO DAILY@59906/16/22 [History] Furosemide [Lasix] 40 mg PO DAILY@59906/16/22 [History] Insulin Aspart [NovoLOG Flexpen] 10 units SQ TID@0800,1200,1700 06/16/22 [History] Insulin Glargine,Hum.rec.anlog [Basaglar Kwikpen U-100] 25 unit SQ HS@209906/16/22 [History] Lactulose 10 gm PO DAILY PRN 06/16/22 [History] Multivitamins, Thera [Multivitamin (formulary)] 1 tab PO DAILY@89906/16/22 [History] Rhinocort Aqua Suspension 32mcg/Act 1 spray EA NOSTRIL HS@209906/16/22 [History] Semaglutide [Ozempic] 0.5 mg SQ WE@89906/16/22 [History] Tamsulosin HCl [Flomax] 0.4 mg PO HS@209906/16/22 [History] glipiZIDE [Glucotrol] 5 mg PO DAILY@89906/16/22 [History] Acetaminophen Tab [Tylenol] 650 mg PO Q6HR PRN tab 07/19/22 [Rx] guaiFENesin SYRUP 100MG/5ML [Robitussin] 200 mg PO TID PRN ml 07/19/22 [Rx] Benzocaine/Menthol Lozeng [Cepacol lozenge] 1 lozenge MUCOUS MEM Q4HR PRN 02/09/23 [History] Calcium Carb-Vit D 500Mg-5Mcg [Oscal 500+D 5 Mcg (200 Iu)] 1 tab PO BID 02/09/23 [History] Guaifenesin/Dextromethorphan [Tracie-Tussin Dm 200-20 mg/10 ml] 10 ml PO Q4H PRN 02/09/23 [History] Sennosides [Senokot] 17.2 mg PO DAILY 02/09/23 [History] Apixaban [Eliquis] 5 mg PO BID 30 Days #0 tab 02/17/23 [Rx] Gabapentin 600 mg PO TID@0600,1400,2200 3 Days #9 tab 02/17/23 [Rx] HYDROcodone/APAP 7.5-325MG [[place] 7.5-325] 1 tab PO Q4H PRN 3 Days #18 tab 02/17/23 [Rx] Metoprolol Tartrate [Lopressor] 100 mg PO BID tab 02/17/23 [Rx] lisinopriL [Zestril] 2.5 mg PO DAILY tab 02/17/23 [Rx] Follow up Appointment(s)/Referral(s): Jeffrey Frank MD [Primary Care Provider] - 1-2 days [facility] on the [place], [NON-STAFF] - 1 Week Discharge Disposition: TRANSFER TO SNF/ECF
[2023-02-17 14:56] VITALS: PULSE 58
== END 2023-02-17 16:04 | DRG 309 ==
LOC: EC 08:27 → 3SCARD 10:54
PROVIDERS: ADMIT Hospitalist; ATTEND Hospitalist
PROC: 5A2204Z Restoration of Cardiac Rhythm, Single (ICD-10-PCS; principal; 2023-02-16 10:30)
PROC: B24BZZ4 Ultrasonography of Heart with Aorta, Transesophageal (ICD-10-PCS; principal; 2023-02-16 10:30)
DX: I48.19 Other persistent atrial fibrillation (principal); Z68.41 Body mass index [BMI] 40.0-44.9, adult; D64.9 Anemia, unspecified; D69.6 Thrombocytopenia, unspecified; E66.01 Morbid (severe) obesity due to excess calories; E78.5 Hyperlipidemia, unspecified; I10 Essential (primary) hypertension; E11.9 Type 2 diabetes mellitus without complications; I25.10 Atherosclerotic heart disease of native coronary artery without angina pectoris; I42.9 Cardiomyopathy, unspecified; K21.9 Gastro-esophageal reflux disease without esophagitis; Z79.4 Long term (current) use of insulin; Z79.84 Long term (current) use of oral hypoglycemic drugs; Z79.82 Long term (current) use of aspirin; Z82.49 Family history of ischemic heart disease and other diseases of the circulatory system; Z79.899 Other long term (current) drug therapy; Z95.5 Presence of coronary angioplasty implant and graft; Z98.84 Bariatric surgery status
CPT/HCPCS: 36415; 71046; 71275; 80048; 80053; 83036; 83735; 84443; 84484; 85025; 85379; 85610; 85730; 92960; 93005; 93306; 93312; 93320; 93325; 94640; 96365; 96366; 96368; 99291

== ENCOUNTER → 2024-04-29 | Outpatient (CLI) | payer MEDICARE, OTHER ==
--- NOTE | 2024-04-29 12:00 | CT ---
EXAMINATION TYPE: CT angio neck CT DLP: 479.6 mGycm, Automated exposure control for dose reduction was used. DATE OF EXAM: 04/29/2024 11:23 AM COMPARISON: No direct comparisons. CLINICAL INDICATION:Male, 68 years old with history of I65.29 carotid stenosis; PHH, dizzy TECHNIQUE: Axially acquired helical CT angiogram of the neck was obtained with contrast utilizing 75 cc of Isovue-370 administered intravenously. Axial images are supplemented with 3D reconstructions wh ich were post-processed at an independent workstation. NASCET criteria used. FINDINGS: CTA NECK: Right Carotid System: The common carotid artery and external carotid artery are patent. High-grade stenosis at the origin o f the right external carotid artery secondary to calcified plaque. Approximately 95% stenosis the anish gin and proximal right internal carotid artery secondary to calcified plaque. The remaining portions of the internal carotid artery demonstrate normal size without significant narrowing. Left Carotid System: The common carotid artery and external carotid artery are patent. High-grade stenosis at the origin o f the left external carotid artery secondary to calcified plaque. Approximately 95% stenosis the orig in and proximal left internal carotid artery secondary to calcified plaque. The remaining portions of the internal carotid artery demonstrate normal size without significant narrowing. Vertebral arteries are patent without evidence hemodynamically significant stenosis. The vertebral ar teries are codominant. High-grade stenosis of the origin the left vertebral artery secondary to calci fied plaque. Moderate stenosis at the origin of the right vertebral artery secondary to calcified buck que. There is a three-vessel aortic arch. The origins of the great vessels are patent. No evidence of hemo dynamically significant stenosis. Multilevel degenerative changes of the visualized cervical spine. Calcified loose bodies along the in ferior aspect of the left shoulder joint. Mucosal thickening in the left maxillary sinus. IMPRESSION: 1. Approximately 95% stenosis involving the origins of the bilateral internal carotid arteries. 2. High-grade stenosis of the origins of the bilateral external carotid arteries. [facility], , 04/29/2024 11:57 AM
== END | disposition home or self-care (01) ==
LOC: RADCTMAIN 09:41
PROVIDERS: ATTEND Family Medicine
DX: I65.23 Occlusion and stenosis of bilateral carotid arteries (principal)
CPT/HCPCS: 70498; Q9967

== ENCOUNTER → 2024-06-03 | Outpatient (CLI) | payer MEDICARE, OTHER ==
[2024-06-03 11:37] VITALS: BP 110/64; PULSE 52; RESP 16; TEMP 97.6; BMI 41.5
--- NOTE | 2024-06-03 16:54 | P.HPBAR ---
Bariatric H&P - History & Physicial H&P Date: 06/03/24 History & Physicial: Visit/CC: pre surg Patient initial contact: Initial weight: Initial weight in pounds: Height: 6 ft 2 in Initial BMI: Last weight: Current weight: 146.964 kg Current weight in pounds: 324.00 Current BMI: 41.5 [place] body weight (based on NIH guidelines): 86.183 kg Excess body weight loss: The patient is a 68 year-old M who presents for Bariatric Assessment. Patient presents today for bariatric consultation. Patient had a lap band performed by different surgeon approximately 10 years ago. Patient has failed to tolerate any fills of his Lap-Band. Patient is morbidly obese. His BMI is 42. Patient requests removal of Lap-Band and conversion to sleeve gastrectomy. Patient has had significant problems with dysphagia and GERD related to his Lap-Band. Past Medical History Past Medical History: Atrial Fibrillation, Coronary Artery Disease (CAD), COPD, Diabetes Mellitus, GERD/Reflux, Hyperlipidemia, Hypertension Additional Past Medical History / Comment(s): Chronic pain, Nonambulatory-uses sit to stand lift/wheelchair at [facility]. History of Any Multi-Drug Resistant Organisms: None Reported Past Surgical History: Heart Catheterization With Stent Additional Past Surgical History / Comment(s): carpel tunnel surgery 06/15/22, lap band around 2017, prior history PCI stent placement- unknown date Past Anesthesia/Blood Transfusion Reactions: No Reported Reaction Date of Last Stent Placement:: unknown Past Psychological History: Depression Smoking Status: Former smoker Past Alcohol Use History: None Reported Past Drug Use History: None Reported - Past Family History Father Family Medical History: Myocardial Infarction ([place]) Surgical - Exam Vital Signs Temp Pulse Resp BP 97.6 F 52 L 16 110/64 06/03/24 11:25 06/03/24 11:25 06/03/24 11:25 06/03/24 11:25 - General well developed, well nourished, no distress - Eyes PERRL - ENT normal pinna, normal nares - Neck no masses - Abdomen Abdomen: soft, non tender Bariatric Assessment & Plan Plan: Dysphagia related to Lap-Band. Patient will be scheduled for removal of Lap- Band and conversion to sleeve gastrectomy. Bariatric Checklist Checklist: Plan: Checklist: EGD: 1. Hiatal hernia: 2. H. Pylori: HgbA1c: Vitamin D: Smoking: Primary care physician referral: Dr Frank Psychiatry clearance: Cardiology clearance: Sleep study: Diet journal: VTE risk score: VTE risk level: Rehab needs at discharge:
== END ==
LOC: BARWHC3 10:55
PROVIDERS: ATTEND Surgery
DX: K44.9 Diaphragmatic hernia without obstruction or gangrene (principal); B96.81 Helicobacter pylori [H. pylori] as the cause of diseases classified elsewhere
CPT/HCPCS: 99211